=== PATIENT | female | born 1965 | race Caucasian/White ===

== ENCOUNTER 2017-04-05 09:49 | Inpatient (IN) ==
[2017-04-05] MEDS ORDERED: 0.9 % SODIUM CHLORIDE 1,000 ML IV ONE (10:24)
[2017-04-05 11:04] LABS: Basophils # (Auto) 0 K/mcL (0.0-0.3); Basophils % (Auto) 0.3 % (0.0-2.0); Eosinophils # (Auto) 0 K/mcL (0.0-0.7); Eosinophils % (Auto) 0 % (0.0-7.0); Granulocytes % (Auto) 82.2 % (38.0-78.0); Lymphocytes # (Auto) 1.2 K/mcL (1.5-4.8); Lymphocytes % (Auto) 11.2 % (15.5-49.0); Mean Cell Volume 84.5 fL (80.0-100.0); Mean Corpuscular HGB Conc 33.7 g/dL (31.0-36.0); Mean Corpuscular Hemoglobin 28.5 pg (26.0-34.0); Monocytes # (Auto) 0.7 K/mcL (0.1-0.9); Monocytes % (Auto) 6.3 % (1.0-12.0); Platelet Count 272 K/mcL (140-440); RBC 6.09 M/mcL (4.00-5.20); Red Cell Distribution Width 15.4 % (11.5-14.5)
[2017-04-05 11:49] LABS: Appearance,Urine HAZY; Bacteria,Urine FEW /hpf (0); Bilirubin,Urine NEG (NEG); Color,Urine AMBER; Glucose,Urine (UA) NEGATIVE (NEG); Leukocyte Esterase,Urine NEG /uL (NEG); Mucus,Urine MOD /hpf (0); Protein,Urine 100 mg/dL (NEG); Specific Gravity,Urine 1.025 (1.000-1.035); Urine Blood NEG mg/dL (<0.03); Urine Hyaline Cast 116 /lpf (0-2); Urine RBC 2 /hpf (0-1); Urine Squamous Epithelial Cell 6 /hpf (0-4); Urine WBC 10 /hpf (0-4)
[2017-04-05 11:56] LABS: Amphetamine Screen,Urine NONE DETECTED (NONDETECTED); Benzodiazepines Screen,Urine NONE DETECTED (NONDETECTED); Cocaine Screen,Urine NONE DETECTED (NONDETECTED); Opiate Screen,Urine NONE DETECTED (NONDETECTED); Oxycodone, Urine Screen NONE DETECTED (NONDETECTED)
[2017-04-05 12:16] LABS: Creatine Kinase MB 2.6 ng/ml (0-2.9); Myoglobin 76 ng/ml (25-58)
[2017-04-05 12:21] LABS: Acetaminophen < 5.0 ug/mL; Salicylate 0.3 mg/dL
[2017-04-05 12:32] LABS: ALT/SGPT 37 U/l (0-40); Albumin 3.7 gm/dL (3.2-5.2); Albumin/Globulin Ratio 1.2 (1.0-2.3); Alkaline Phosphatase 123 U/L (39-117); Blood Urea Nitrogen 27 mg/dl (6-20)
[2017-04-05] MEDS ORDERED: POTASSIUM CHLORIDE 20 MEQ in DEXTROSE 5% IN WATER 250 ML IV ONE (12:33)
--- NOTE | 2017-04-05 12:39 | XRay Report ---
CLINICAL INFORMATION: Weakness COMPARISON: None. FINDINGS: The heart size, mediastinum and pulmonary vessels are unremarkable. The lungs are clear. There are no effusions. The bones and soft tissues are within normal limits. IMPRESSION: Normal chest. Interpreted and Authenticated by: Robin Boyle 04/05/17
[2017-04-05] MEDS ORDERED: POTASSIUM CHLORIDE 20 MEQ, MAGNESIUM SULFATE 16.24 MEQ, THIAMINE 100 MG, MVI, ADULT NO.... IV SCH (12:45)
--- NOTE | 2017-04-05 12:58 | Cat Scan Report ---
CLINICAL INFORMATION: Multiple falls with loss of consciousness COMPARISON: None. TECHNIQUE: 2.5 mm helical slices were obtained in the skull base to vertex. Following reconstruction, axial reformatted images were reviewed at bone and parenchymal windows. The exam was performed using radiation dose optimization techniques including, but not limited to, automated exposure control, adjustment of the mA and/or kV according to patient size and use of iterative reconstruction technique. FINDINGS: The ventricles, sulci, fissures, and cisterns are normal in size and configuration. No extra-axial fluid collections are identified. The cerebrum, brainstem and cerebellum are unremarkable. There is no evidence of hemorrhage, mass effect, or edema. Bone windows show no osseous abnormality. IMPRESSION: Normal head CT without contrast. Interpreted and Authenticated by: Robin Boyle 04/05/17
--- NOTE | 2017-04-05 12:58 | Emergency Department Note ---
Weakness HPI - General Chief complaint: Weakness Stated complaint: Nausea, sinus congestion, body aches Time Seen by Provider: 04/05/17 10:10 Source: patient, family Mode of arrival: ambulatory - History of Present Illness HPI Narrative: 51-year-old female presents with multiple complaints. States she has been dizzy for the last couple of weeks but much worse over the last week. She has fallen several times. She has a bruise to her back. She wants to be seen for her dizziness but is extremely tearful and states she is depressed. Originally denies wanting to harm herself but on subsequent encounters she is crying and states that she has been trying to kill herself for quite some time. States that she has not been eating or drinking on purpose with the hopes that she would . States that she has been drinking boxes of wine, usually 2 a day, to try to speed along the process. States "I do not know why I am still here " . She does state she is willing to get help today. States "do not let me leave the hospital or something bad will happen to me and I do not want to be alive anymore ". She denies taking any medications at home or taking too much of any medication. States the last time she drank alcohol was about a day and a half ago and she wants to stop drinking alcohol. She does not have anyone to care for her at home. She does have her ex- who will check in on her. He reports that her behavior has been declining rapidly over the last 6 months. 4-1/2 months ago she decided that she was afraid of people and would not leave the house. This is the first time she has left her home in 4-1/2 months. Her states this is become so severe that she even quit smoking because she had to go outside to smoke so she just stopped because she refused to even step foot outside. He states over the last 2 months she has hardly eaten anything at all. He has been trying to at least get her to drink fluids and she will eat or drink hardly anything other than lots of alcohol he states. He does tell us that she has an extensive psych history. She has known anxiety, PTSD, depression, and he states others that he does not even know about but she has required multiple psych hospitalizations including [facility] and at [facility]. He states she really is unable to care for herself at home. She has been confused for several weeks if not months. Does not seem to care for herself or perform daily activities. He has witnessed her having several near syncopal and syncopal events recently. She refuses to come in and get treatment. Today he states he finally distended give her choice and made her come in because her symptoms were more severe. Believe she has had a fever or chills. Patient has had nausea and vomiting especially the last 2-3 weeks. He is unsure if that is from alcohol because she would drink lots and then if she would try to eat she would vomit. The patient is an extremely poor historian and has flight of ideas. At times she denies wanting to harm herself and other times she is crying stating she wants to harm herself and and does not want to be here and she has been trying to do it herself at home. The ex- is stating she desperately needs help. She does have a daughter in town but states she cannot care for herself and there is really no one to take care of her. Denies shortness of breath or difficulty breathing. No abdominal pain. No pedal edema. She denies any headache or neck pain. No numbness or tingling. MD Complaint: generalized weakness, difficulty walking (And balance is off) Onset (ago): month(s) (This is been going on for several months but much worse over the last few weeks. Very difficult to get an adequate or reliable history from this patient and much of the information is coming from her ex- who checks in on her) Associated symptoms: Reports: confusion, loss of appetite, nausea/vomiting, syncope. Denies: chest pain, dark stools, diaphoresis, dysuria, easy bruising, fever/chills, headaches, rash, shortness of breath - Related Data Home Medications Medication Instructions Recorded Confirmed No Known Home Meds [No Known Home 04/05/17 04/05/17 Meds] Allergies Allergy/AdvReac Type Severity Reaction Status Date / Time No Known Drug Allergies Allergy Unverified 04/05/17 09:59 Review of Systems All systems ED: reviewed and negative except as stated. Past Medical History - Past Medical History Medical history: Reports: other (She denies any past medical problems other than psych however she is an extremely poor historian and old records are not available.) Psychiatric history: Reports: anxiety, depression, panic disorder, PTSD, previous psychiatric hospitalization Surgical history ED: Reports: no surgical history (Patient denies but unreliable ) - Social History smoking status: Former smoker (Stop smoking 4 months ago) Alcohol use: Reports: Daily, Heavy, Recent (Last known alcohol use was 1-1/2 days ago) Drug use: Reports: marijuana Physical Exam Limitations: altered mental status (She is alert and oriented to person, place, and time. However she is an extremely poor historian and often changes her story and has flight of ideas.) General appearance: alert, other (Laughs hysterically at times and other times is sobbing and tearful) Head: atraumatic, normocephalic, normal inspection Eye: Present: normal appearance. Absent: conjunctival injection ENT: normal exam, normal oropharynx, mucous membranes moist, TM's normal bilaterally, normal external ear exam Neck: Present: normal inspection, trachea midline. Absent: tenderness, lymphadenopathy Chest: Present: normal inspection, symmetric chest wall rise, rash (Just below the breast midline is a 2.5 cm red lesion. No drainage.) Respiratory: Present: normal lung sounds bilaterally. Absent: respiratory distress, wheezes, stridor, accessory muscle use Cardiovascular: Present: regular rate, normal heart sounds Abdominal: Present: soft, normal bowel sounds. Absent: distention, tenderness, guarding, rebound, mass Extremities: Present: normal inspection, normal capillary refill, pedal edema Back: Present: normal inspection. Absent: tenderness, CVA tenderness (R), CVA tenderness (L) Neurological: Present: alert, oriented X3. Absent: CN II-XII intact, normal gait (Holds onto things to walk. Balance is off), motor sensory deficit Psychiatric: Present: depressed, anxious, suicidal ideation Skin: Present: warm, dry, intact, normal color, rash (Please see chest assessment. Patient also has a 4 cm in diameter bruise to her back. Appears to be a few days old) Course Course Narrative: oJanna, from [facility], is here to evaluate the patient. @[id number] spoke with hospitalist, Dr. Johnson, who agrees to admit the patient. We will also add on a lactic acid and ABG Vital Signs Temperature 99.7 F H 04/05/17 09:51 Pulse Rate 110 H 04/05/17 09:51 Respiratory Rate 16 04/05/17 09:51 Blood Pressure 120/71 04/05/17 09:51 Pulse Oximetry (%) 95 04/05/17 09:51 Temperature 99.7 F H 04/05/17 09:51 Pulse Rate 82 04/05/17 12:38 Respiratory Rate 9 L 04/05/17 12:38 Blood Pressure 129/86 04/05/17 12:31 Pulse Oximetry (%) 85 L 04/05/17 12:38 Weakness - Lab Data Lab results reviewed: Yes I reviewed the patient's lab results. Result diagrams: 04/05/17 10:34 04/05/17 11:25 Lab Results 04/05/17 04/05/17 04/05/17 Range/Units 10:34 10:34 10:34 WBC 10.7 (4.5-11.0) K/mcL RBC 6.09 H (4.00-5.20) M/mcL Hgb 17.4 H (12.0-15.0) g/dL Hct 51.5 H (36.0-48.0) % MCV 84.5 (80.0-100.0) fL MCH 28.5 (26.0-34.0) pg MCHC 33.7 (31.0-36.0) g/dL RDW 15.4 H (11.5-14.5) % Plt Count 272 (140-440) K/mcL MPV 8.4 (7.4-10.4) fL Gran % 82.2 H (38.0-78.0) % Lymph % (Auto) 11.2 L (15.5-49.0) % [place] % (Auto) 6.3 (1.0-12.0) % Eos % (Auto) 0 (0.0-7.0) % Baso % (Auto) 0.3 (0.0-2.0) % Gran # 8.8 H (1.8-8.0) K/mcL Lymph # (Auto) 1.2 L (1.5-4.8) K/mcL [place] # (Auto) 0.7 (0.1-0.9) K/mcL Eos # (Auto) 0 (0.0-0.7) K/mcL Baso # (Auto) 0 (0.0-0.3) K/mcL Sodium TNP Potassium TNP Chloride TNP Carbon Dioxide TNP Anion Gap Not Reportable BUN TNP Creatinine TNP GFR Calculation Not Reportable Glucose TNP Calcium TNP Magnesium (1.6-2.5) mg/dL Total Bilirubin TNP AST TNP ALT TNP Alkaline Phosphatase TNP CK-MB (CK-2) TNP Myoglobin TNP Troponin T TNP Total Protein TNP Albumin TNP Globulin TNP Albumin/Globulin Ratio TNP Urine Color Urine Appearance Urine pH (5.0-9.0) Ur Specific [place] (1.000-1.035) Urine Protein (NEG) mg/dL Urine Glucose (UA) (NEG) mg/dL Urine Ketones (NEG) mg/dL Urine Occult Blood (<0.03) mg/dL Urine Nitrate (NEG) Urine Bilirubin (NEG) mg/dL Urine Urobilinogen (NEG) mg/dL Ur Leukocyte Esterase (NEG) /uL Urine RBC (0-1) /hpf Urine WBC (0-4) /hpf Ur Squamous Epith Cells (0-4) /hpf Urine Bacteria (0) /hpf Hyaline Casts (0-2) /lpf Urine Mucus (0) /hpf Ur Culture Indicated? Salicylates Urine Opiates Screen (NONDETECTED) Ur Oxycodone Screen (NONDETECTED) Urine Methadone Screen (NONDETECTED) Acetaminophen Ur Barbiturates Screen (NONDETECTED) Ur Phencyclidine Scrn (NONDETECTED) Ur Amphetamines Screen (NONDETECTED) U Benzodiazepines Scrn (NONDETECTED) Urine Cocaine Screen (NONDETECTED) U Marijuana (THC) Screen (NONDETECTED) Ethyl Alcohol 04/05/17 04/05/17 04/05/17 Range/Units 10:34 10:34 11:11 WBC (4.5-11.0) K/mcL RBC (4.00-5.20) M/mcL Hgb (12.0-15.0) g/dL Hct (36.0-48.0) % MCV (80.0-100.0) fL MCH (26.0-34.0) pg MCHC (31.0-36.0) g/dL RDW (11.5-14.5) % Plt Count (140-440) K/mcL MPV (7.4-10.4) fL Gran % (38.0-78.0) % Lymph % (Auto) (15.5-49.0) % [place] % (Auto) (1.0-12.0) % Eos % (Auto) (0.0-7.0) % Baso % (Auto) (0.0-2.0) % Gran # (1.8-8.0) K/mcL Lymph # (Auto) (1.5-4.8) K/mcL [place] # (Auto) (0.1-0.9) K/mcL Eos # (Auto) (0.0-0.7) K/mcL Baso # (Auto) (0.0-0.3) K/mcL Sodium Potassium Chloride Carbon Dioxide Anion Gap BUN Creatinine GFR Calculation Glucose Calcium Magnesium (1.6-2.5) mg/dL Total Bilirubin AST ALT Alkaline Phosphatase CK-MB (CK-2) Myoglobin Troponin T Total Protein Albumin Globulin Albumin/Globulin Ratio Urine Color Urine Appearance Urine pH (5.0-9.0) Ur Specific [place] (1.000-1.035) Urine Protein (NEG) mg/dL Urine Glucose (UA) (NEG) mg/dL Urine Ketones (NEG) mg/dL Urine Occult Blood (<0.03) mg/dL Urine Nitrate (NEG) Urine Bilirubin (NEG) mg/dL Urine Urobilinogen (NEG) mg/dL Ur Leukocyte Esterase (NEG) /uL Urine RBC (0-1) /hpf Urine WBC (0-4) /hpf Ur Squamous Epith Cells (0-4) /hpf Urine Bacteria (0) /hpf Hyaline Casts (0-2) /lpf Urine Mucus (0) /hpf Ur Culture Indicated? Salicylates TNP Urine Opiates Screen None detected (NONDETECTED) Ur Oxycodone Screen None detected (NONDETECTED) Urine Methadone Screen None detected (NONDETECTED) Acetaminophen TNP Ur Barbiturates Screen None detected (NONDETECTED) Ur Phencyclidine Scrn None detected (NONDETECTED) Ur Amphetamines Screen None detected (NONDETECTED) U Benzodiazepines Scrn None detected (NONDETECTED) Urine Cocaine Screen None detected (NONDETECTED) U Marijuana (THC) Screen Suspect positive A (NONDETECTED) Ethyl Alcohol TNP 04/05/17 04/05/17 04/05/17 Range/Units 11:11 11:25 11:25 WBC (4.5-11.0) K/mcL RBC (4.00-5.20) M/mcL Hgb (12.0-15.0) g/dL Hct (36.0-48.0) % MCV (80.0-100.0) fL MCH (26.0-34.0) pg MCHC (31.0-36.0) g/dL RDW (11.5-14.5) % Plt Count (140-440) K/mcL MPV (7.4-10.4) fL Gran % (38.0-78.0) % Lymph % (Auto) (15.5-49.0) % [place] % (Auto) (1.0-12.0) % Eos % (Auto) (0.0-7.0) % Baso % (Auto) (0.0-2.0) % Gran # (1.8-8.0) K/mcL Lymph # (Auto) (1.5-4.8) K/mcL [place] # (Auto) (0.1-0.9) K/mcL Eos # (Auto) (0.0-0.7) K/mcL Baso # (Auto) (0.0-0.3) K/mcL Sodium 127 L Potassium 1.8 L* Chloride 71 L Carbon Dioxide 37 H Anion Gap 19.0 H BUN 27 H Creatinine 1.0 GFR Calculation 65 Glucose 131 H Calcium 9.2 Magnesium (1.6-2.5) mg/dL Total Bilirubin 1.1 H AST 58 H ALT 37 Alkaline Phosphatase 123 H CK-MB (CK-2) 2.6 Myoglobin 76 H Troponin T < 0.01 Total Protein 6.7 Albumin 3.7 Globulin 3.0 Albumin/Globulin Ratio 1.2 Urine Color Jaylin Urine Appearance Hazy Urine pH 5.0 (5.0-9.0) Ur Specific [place] 1.025 (1.000-1.035) Urine Protein 100 A (NEG) mg/dL Urine Glucose (UA) Negative (NEG) mg/dL Urine Ketones 80 A (NEG) mg/dL Urine Occult Blood Neg (<0.03) mg/dL Urine Nitrate Neg (NEG) Urine Bilirubin Neg (NEG) mg/dL Urine Urobilinogen 4.0 A (NEG) mg/dL Ur Leukocyte Esterase Neg (NEG) /uL Urine RBC 2 H (0-1) /hpf Urine WBC 10 H (0-4) /hpf Ur Squamous Epith Cells 6 H (0-4) /hpf Urine Bacteria Few A (0) /hpf Hyaline Casts 116 H (0-2) /lpf Urine Mucus Mod (0) /hpf Ur Culture Indicated? No Salicylates Urine Opiates Screen (NONDETECTED) Ur Oxycodone Screen (NONDETECTED) Urine Methadone Screen (NONDETECTED) Acetaminophen Ur Barbiturates Screen (NONDETECTED) Ur Phencyclidine Scrn (NONDETECTED) Ur Amphetamines Screen (NONDETECTED) U Benzodiazepines Scrn (NONDETECTED) Urine Cocaine Screen (NONDETECTED) U Marijuana (THC) Screen (NONDETECTED) Ethyl Alcohol 04/05/17 04/05/17 04/05/17 Range/Units 11:25 11:25 11:25 WBC (4.5-11.0) K/mcL RBC (4.00-5.20) M/mcL Hgb (12.0-15.0) g/dL Hct (36.0-48.0) % MCV (80.0-100.0) fL MCH (26.0-34.0) pg MCHC (31.0-36.0) g/dL RDW (11.5-14.5) % Plt Count (140-440) K/mcL MPV (7.4-10.4) fL Gran % (38.0-78.0) % Lymph % (Auto) (15.5-49.0) % [place] % (Auto) (1.0-12.0) % Eos % (Auto) (0.0-7.0) % Baso % (Auto) (0.0-2.0) % Gran # (1.8-8.0) K/mcL Lymph # (Auto) (1.5-4.8) K/mcL [place] # (Auto) (0.1-0.9) K/mcL Eos # (Auto) (0.0-0.7) K/mcL Baso # (Auto) (0.0-0.3) K/mcL Sodium Potassium Chloride Carbon Dioxide Anion Gap BUN Creatinine GFR Calculation Glucose Calcium Magnesium 1.6 (1.6-2.5) mg/dL Total Bilirubin AST ALT Alkaline Phosphatase CK-MB (CK-2) Myoglobin Troponin T Total Protein Albumin Globulin Albumin/Globulin Ratio Urine Color Urine Appearance Urine pH (5.0-9.0) Ur Specific [place] (1.000-1.035) Urine Protein (NEG) mg/dL Urine Glucose (UA) (NEG) mg/dL Urine Ketones (NEG) mg/dL Urine Occult Blood (<0.03) mg/dL Urine Nitrate (NEG) Urine Bilirubin (NEG) mg/dL Urine Urobilinogen (NEG) mg/dL Ur Leukocyte Esterase (NEG) /uL Urine RBC (0-1) /hpf Urine WBC (0-4) /hpf Ur Squamous Epith Cells (0-4) /hpf Urine Bacteria (0) /hpf Hyaline Casts (0-2) /lpf Urine Mucus (0) /hpf Ur Culture Indicated? Salicylates 0.3 Urine Opiates Screen (NONDETECTED) Ur Oxycodone Screen (NONDETECTED) Urine Methadone Screen (NONDETECTED) Acetaminophen < 5.0 Ur Barbiturates Screen (NONDETECTED) Ur Phencyclidine Scrn (NONDETECTED) Ur Amphetamines Screen (NONDETECTED) U Benzodiazepines Scrn (NONDETECTED) Urine Cocaine Screen (NONDETECTED) U Marijuana (THC) Screen (NONDETECTED) Ethyl Alcohol < 0.010 - Radiology Data Radiology results reviewed: Yes I reviewed the patient's radiology results. - EKG Data EKG attestation: Yes I reviewed and interpreted this EKG. EKG shows normal: sinus rhythm When compared to previous EKG there are: previous EKG unavailable Interpretation: nonspecific ST-T wave changes (Consistent with hypokalemia) Disposition Pt seen by [facility] only: No Clinical Impression: Confusion, Depression, Alcohol abuse, Hypokalemia, Dehydration, Failure to thrive in adult Condition: Serious Time of Disposition: 13:10
[2017-04-05] MEDS ORDERED: LORazepam 2 MG/ML VIAL IV PRN (15:03)
[2017-04-05] MEDS ORDERED: MAGNESIUM SULFATE 2 GM/50 ML BAG IV ONE (15:03)
[2017-04-05] MEDS ORDERED: cloNIDine HCL 0.1 MG TABLET PO PRN (15:03)
[2017-04-05] MEDS ORDERED: ONDANSETRON 4 MG/2 ML VIAL IV PRN (15:03)
[2017-04-05] MEDS ORDERED: NALOXONE HCL 0.4 MG/ML VIAL IV PRN (15:03)
--- NOTE | 2017-04-05 15:08 | Internal Med History&Physical ---
Medical - H&P: HPI Patient information: Note initiated : 04/05/17 at 3:01 pm Service Date, if different from initiated Date: [] Patient: Oksana Salcedo 51 y/o F admitted on 04/05/17 for Nausea, sinus congestion, body aches. Chief Complaint: [] History of present illness: Ms. Salcedo is a 51 year old Female with h/o mental health disorder, paranoid behavoru, alcohol abuse, who presents to the ER for evaluation of dizziness , nause and vomiting. The patient is a very poor historian and changes her story multiple times, she notes that she came to the ER for evaluation of dizziness and nausea which has been botherhing her for many years, but today felt that like she has had it and therefore came to the ER. THe patient admits to poor oral intake, and vmoting every time she tries to eat something, but besides that denies any other complaints Intermittently nicely talking, and intermitently crying. History reviewed from ER note is a completely different story, on talking with health care provider in ER, the patient has been admitted in inpt psych facility , and we are in the process of obtaining records. For the time being the patient juan any SI, but as per the ER note the patient is thinks she is not going to live if she is discharged, and is drinking her self to I am not able to quantify the amount of alcohol consumed, or who is bringing the alcohol to the patient, its noted she drinks 2 boxes a day. The patient lives by self, and her ex checks on her intermittently, but she thinks she lives with him. In the ER the patient was noted to be dehydrated, she has hemoconcentration in labs with hb 17, hct 51, Na 127, Cl 71, K 1.8, bicarb 31 creat 1.0, Her ABG is Ph 7.65/42/73, Her EKG shows sinus rhythm lafb, u waves merged with t waves. Her Tylenol level, salicylate level and ethanol were neg. The patient is being admitted to the PCU for critical hypokalemia, severe metabolic alkalosis, and high risk for alcohol withdrawal. CT head and Chest X ray is neg. All systems: reviewed and no additional remarkable complaints except as stated ( as per hPI, but not sure how reliable this is.) Medical - H&P: PMH Medical history: PTSD anxiety Depression paranoia/ schizophrenia?? Surgical history: C section. Family history: reviewed and not pertinent Pertinent family history: adopted Social history: lives by self with ex ? heavy etohy drinker THC user denies any other substance use Medical - H&P: Meds Home Medications Medication Instructions Recorded Confirmed Type No Known Home Meds [No Known Home 04/05/17 04/05/17 History Meds] Allergies Allergy/AdvReac Type Severity Reaction Status Date / Time No Known Drug Allergies Allergy Unverified 04/05/17 09:59 Medical - H&P: Exam - Constitutional Vitals: Temp Pulse Resp BP Pulse Ox 99.7 F H 80 10 L 111/76 100 04/05/17 09:51 04/05/17 14:01 04/05/17 14:01 04/05/17 14:01 04/05/17 14:01 Exam: GENERAL: The patient is a well-developed, well-nourished in no apparent distress. Is alert and oriented x3. VITAL SIGNS: Reviewed and as noted elsewhere. HEENT: Head is normocephalic and atraumatic. Extraocular muscles are intact. Pupils are equal, round, and reactive to light. Nares appeared normal. Mouth appears any without lesions. Mucous membranes are moist. no teeth present. NECK: Normal to inspection, Supple, No lymphadenopathy or thyromegaly. LUNGS: Air entry equal on both sides, no wheezing, crackles or rhonchi noted. No accessory muscles of respiration HEART: Regular rate and rhythm normal, S1 and S2 heard, no Gallop, S3 or Rub Noted, No Gross murmur heard. ABDOMEN: Soft, nontender, and nondistended. Positive bowel sounds. No hepatosplenomegaly was noted. EXTREMITIES: No cyanosis, clubbing, rash, lesions or edema. NEUROLOGIC: Cranial nerves II through XII are grossly intact. Motor and Sensory System Grossly Intact PSYCHIATRIC: labile affect, poor eye contact, intermittent crying. SKIN: No ulceration or wounds noted, No jaundice, No rash noted. Medical - H&P: Reslt - Labs CBC & Chem 7: 04/05/17 10:34 04/05/17 11:25 Labs: Short CBC 04/05/17 Range/Units 10:34 WBC 10.7 (4.5-11.0) K/mcL Hgb 17.4 H (12.0-15.0) g/dL Hct 51.5 H (36.0-48.0) % Plt Count 272 (140-440) K/mcL BMP 04/05/17 04/05/17 10:34 11:25 Sodium TNP 127 L Potassium TNP 1.8 L* Chloride TNP 71 L Carbon Dioxide TNP 37 H BUN TNP 27 H Creatinine TNP 1.0 Glucose TNP 131 H Calcium TNP 9.2 Cardiac Enzymes 04/05/17 04/05/17 04/05/17 Range/Units 10:34 10:34 11:25 CK-MB (CK-2) TNP 2.6 Troponin T TNP 04/05/17 Range/Units 11:25 CK-MB (CK-2) Troponin T < 0.01 Liver Function 04/05/17 04/05/17 Range/Units 10:34 11:25 Total Bilirubin TNP 1.1 H AST TNP 58 H ALT TNP 37 Alkaline Phosphatase TNP 123 H Albumin TNP 3.7 Urine 04/05/17 Range/Units 11:11 Urine Color Jaylin Urine Appearance Hazy Urine pH 5.0 (5.0-9.0) Ur Specific [place] 1.025 (1.000-1.035) Urine Protein 100 A (NEG) mg/dL Urine Glucose (UA) Negative (NEG) mg/dL Medical - H&P: A/P - Narrative A/P Narrative: A/P Critical Hypokalemia: Treat iwth IV KCL, replace mg even though its 1.6, as expect to be lower, monitor on tele, repeat labs again today, check phos and tsh Hyponatremia: due to dehydration. Severe Metalbolic Alkalosis: Ph 7.65, due to dehydration, IV fluids for now. Etoh abuse/ : CIWA protocol, IV thiamine, nausea/ vomiting: due to gastritis, IV PPI for now, abdomen exam is benign, consider GI imaging if needed Severe dehydration: due to etoh use, poor oral intake, IV fluids. paranoid behavoir: Seen by [facility], plan for inpatient admit if remains unstable or no safe plan for discharge possible. dvt hep sq regular diet full code. will need to get more infor from family
[2017-04-05] MEDS: 0.9 % SODIUM CHLORIDE 1,000 ML IV SCH ×2 (15:47→22:51)
[2017-04-05] MEDS: THIAMINE 100 MG in 0.9 % SODIUM CHLORIDE 50 ML IV SCH ×2 (15:47→17:37)
[2017-04-05] MEDS ORDERED: POTASSIUM CHLORIDE 80 MEQ in DEXTROSE 5% IN WATER 1,000 ML IV ONE (16:00)
[2017-04-05] MEDS: PANTOPRAZOLE 40 MG VIAL IV SCH (17:39)
[2017-04-05 18:16] LABS: Blood Urea Nitrogen 24 mg/dl (6-20)
[2017-04-05] MEDS ORDERED: POTASSIUM CHLORIDE 20 MEQ PACKET PO ONE ×2 (19:22→23:00)
[2017-04-05] MEDS: QUEtiapine 100 MG TABLET PO SCH (20:28)
[2017-04-05] MEDS: HEPARIN 5,000 UNIT/ML VIAL SQ SCH (20:28)
[2017-04-05] MEDS: ACETAMINOPHEN 325 MG TABLET PO PRN (20:29)
[2017-04-05] MEDS: NEUTRA PHOS 1 PACKET PO SCH (20:30)
[2017-04-05] MEDS: 0.9 % SODIUM CHLORIDE 10 ML SYRINGE IV SCH (22:22)
[2017-04-05] MEDS ORDERED: POTASSIUM CHLORIDE 20 MEQ PACKET ONE (23:22)
[2017-04-05 23:37] LABS: Blood Urea Nitrogen 22 mg/dl (6-20)
--- NOTE | 2017-04-06 03:50 | Emergency Department Note ---
ED Note Addendum Note Addendum: I saw this patient with Irena PORRAS. I agree with her evaluation management and documentation. I reviewed the EKG as well and noted a rate of 93 left anterior fascicular block and nonspecific ST changes. She will be admitted for hypokalemia
[2017-04-06] MEDS: 0.9 % SODIUM CHLORIDE 1,000 ML IV SCH ×3 (05:58→22:36)
[2017-04-06 05:59] LABS: Basophils # (Auto) 0 K/mcL (0.0-0.3); Basophils % (Auto) 0.4 % (0.0-2.0); Eosinophils # (Auto) 0.1 K/mcL (0.0-0.7); Eosinophils % (Auto) 1.1 % (0.0-7.0); Granulocytes % (Auto) 37.4 % (38.0-78.0); Lymphocytes # (Auto) 2.7 K/mcL (1.5-4.8); Lymphocytes % (Auto) 54.5 % (15.5-49.0); Mean Cell Volume 85.8 fL (80.0-100.0); Mean Corpuscular HGB Conc 34.2 g/dL (31.0-36.0); Mean Corpuscular Hemoglobin 29.3 pg (26.0-34.0); Monocytes # (Auto) 0.3 K/mcL (0.1-0.9); Monocytes % (Auto) 6.6 % (1.0-12.0); Platelet Count 187 K/mcL (140-440); RBC 4.33 M/mcL (4.00-5.20); Red Cell Distribution Width 15.6 % (11.5-14.5)
[2017-04-06] MEDS: 0.9 % SODIUM CHLORIDE 10 ML SYRINGE IV SCH ×3 (05:59→22:58)
[2017-04-06 06:06] LABS: ALT/SGPT 24 U/l (0-40); Albumin 2.8 gm/dL (3.2-5.2); Albumin/Globulin Ratio 1.3 (1.0-2.3); Alkaline Phosphatase 87 U/L (39-117); Bilirubin,Direct 0.3 mg/dL (0.0-0.3); Blood Urea Nitrogen 19 mg/dl (6-20); Gamma Glutamyl Transpeptidase 88 U/L (5-36)
[2017-04-06] MEDS: PANTOPRAZOLE 40 MG VIAL IV SCH ×2 (07:34→17:14)
[2017-04-06] MEDS ORDERED: POTASSIUM CHLORIDE 40 MEQ in 0.9 % SODIUM CHLORIDE 500 ML IV ONE (08:01)
[2017-04-06] MEDS ORDERED: POTASSIUM CHLORIDE 20 MEQ PACKET PO ONE ×2 (08:01→14:12)
[2017-04-06] MEDS: MULTIVIT,THER IRON,CA,FA & MIN 1 TABLET PO SCH (08:49)
[2017-04-06] MEDS: NEUTRA PHOS 1 PACKET PO SCH ×2 (08:49→20:23)
[2017-04-06] MEDS: HEPARIN 5,000 UNIT/ML VIAL SQ SCH ×2 (08:49→20:24)
[2017-04-06] MEDS: FOLIC ACID 1 MG TABLET PO SCH (08:49)
[2017-04-06] MEDS: THIAMINE 100 MG in 0.9 % SODIUM CHLORIDE 50 ML IV SCH (08:50)
[2017-04-06] MEDS ORDERED: PNEUMOCOCCAL 23-VAL P-SAC VAC 0.5 ML VIAL IM ONE (10:00)
[2017-04-06] MEDS ORDERED: FLU VACC QS2017-18 36MOS UP/PF 60 MCG/0.5 ML SYRINGE IM ONE (10:15)
--- NOTE | 2017-04-06 14:13 | Internal Med Progress Note ---
Medical - PN: Subj Patient information: Note initiated : 04/06/17 at 2:11 pm Service Date, if different from initiated Date: [] Patient: Oksana Salcedo 51 y/o F admitted on 04/05/17 for Critical Hypokalemia, Severe Metalbolic Alkalosis. Chief Complaint: [] Interval history: Ms. Salcedo is a 51 year old Female with h/o mental health disorder, paranoid behavoru, alcohol abuse, who presents to the ER for evaluation of dizziness , nause and vomiting. The patient is a very poor historian and changes her story multiple times, she notes that she came to the ER for evaluation of dizziness and nausea which has been botherhing her for many years, but today felt that like she has had it and therefore came to the ER. THe patient admits to poor oral intake, and vmoting every time she tries to eat something, but besides that denies any other complaints Intermittently nicely talking, and intermitently crying. History reviewed from ER note is a completely different story, on talking with health care provider in ER, the patient has been admitted in inpt psych facility , and we are in the process of obtaining records. For the time being the patient juan any SI, but as per the ER note the patient is thinks she is not going to live if she is discharged, and is drinking her self to I am not able to quantify the amount of alcohol consumed, or who is bringing the alcohol to the patient, its noted she drinks 2 boxes a day. The patient lives by self, and her ex checks on her intermittently, but she thinks she lives with him. In the ER the patient was noted to be dehydrated, she has hemoconcentration in labs with hb 17, hct 51, Na 127, Cl 71, K 1.8, bicarb 31 creat 1.0, Her ABG is Ph 7.65/42/73, Her EKG shows sinus rhythm lafb, u waves merged with t waves. Her Tylenol level, salicylate level and ethanol were neg. The patient is being admitted to the PCU for critical hypokalemia, severe metabolic alkalosis, and high risk for alcohol withdrawal. CT head and Chest X ray is neg. apr 06 patient seen examined, doing well, eating breakfast this AM, still has some dizziness, but feels much better. No other complaints K is much better now, at 3.1, on oral and IV replacement. No events on tele Pertinent ROS: Denies headache, Present dizziness Denies chest pain, palpitations Denies cough or shortness of breath Denies abdominal pain, nausea or vomiting. - Constitutional Vitals: Vital Signs Temp Pulse Resp BP Pulse Ox 98.6 F 79 22 95/65 100 04/06/17 12:46 04/06/17 12:46 04/06/17 12:46 04/06/17 12:46 04/06/17 12:46 Period Temp Pulse Resp BP Sys/Gonzalez Pulse Ox Last 24 Hr 98.5 F-99.3 F 67-95 8-22 94-140/51-126 95-100 Intake and Output 04/06/17 04/06/17 04/06/17 05:59 13:59 21:59 Intake Total 2480 / 2480 642 / 642 Output Total 350 / 350 250 / 250 Balance 2130 / 2130 392 / 392 Weight 163 lb 1.6 oz Patient Weight 04/07/17 05:59 Weight 163 lb 1.6 oz Intake & Output: Intake & Output 04/06/17 04/06/17 04/06/17 05:59 13:59 21:59 Intake Total 2480 / 2480 642 / 642 Output Total 350 / 350 250 / 250 Balance 2130 / 2130 392 / 392 Weight 163 lb 1.6 oz Intake: IV 1999 102 / 102 Sodium Chloride 0.9% 1,000 ml @ 1999 150 mls/hr IV .Q6H40M [facility] Rx#: [id number] Vitamin B1 100 mg In Sodium 102 / 102 Chloride 0.9% 50 ml @ 50 mls/hr IV DAILY [facility] Rx#:[id number] Oral 480 / 480 540 / 540 Output: Void Amount 350 / 350 0 / 0 Urine/Stool Mix 250 / 250 Other: Meal Breakfast Percent of Meal Consumed 75% Exam: Constitutional; Afebrile, cooperative, alert, not in distress. Eyes- No icterus, , No periorbital swelling Ears- Ext ear normal, hearing normal to conversation. Neck- Midline trachea, supple Respiratory system: Air Entry equal on both sides, No crackles or wheezing, no rhonchi. CVS- Rate rhythm regular, S1,S2 heard, no gallop, no rub. Abdomen- Soft nontender abdomen, no organomegaly, no tenderness, no guarding or rigidity, PRESS HELPER- AOOx3, moving all extremities, no gross focal deficit noted. Medical - PN: Obj Da - Labs CBC & Chem 7: 04/06/17 04:00 04/06/17 04:00 Labs: Abnormal Lab Results 04/06/17 04/06/17 04/05/17 04:00 04:00 22:40 RBC Hgb Hct RDW 15.6 H Gran % 37.4 L Lymph % (Auto) 54.5 H Gran # Lymph # (Auto) Sodium 132 L 127 L Potassium 3.1 L 2.9 L* Chloride 88 L 85 L Carbon Dioxide 31 H 33 H Anion Gap BUN 22 H Glucose 126 H Calcium 7.9 L 7.7 L Phosphorus 1.7 L Total Bilirubin 1.1 H GGT 88 H AST 39 H Alkaline Phosphatase Myoglobin Total Protein 5.0 L Albumin 2.8 L Urine Protein Urine Ketones Urine Urobilinogen Urine RBC Urine WBC Ur Squamous Epith Cells Urine Bacteria Hyaline Casts U Marijuana (THC) Screen 04/05/17 04/05/17 04/05/17 17:20 11:25 11:25 RBC Hgb Hct RDW Gran % Lymph % (Auto) Gran # Lymph # (Auto) Sodium 129 L 127 L Potassium 2.1 L* 1.8 L* Chloride 80 L 71 L Carbon Dioxide 34 H 37 H Anion Gap 19.0 H BUN 24 H 27 H Glucose 116 H 131 H Calcium 8.4 L Phosphorus 2.5 L Total Bilirubin 1.1 H GGT AST 58 H Alkaline Phosphatase 123 H Myoglobin 76 H Total Protein Albumin Urine Protein Urine Ketones Urine Urobilinogen Urine RBC Urine WBC Ur Squamous Epith Cells Urine Bacteria Hyaline Casts U Marijuana (THC) Screen 04/05/17 04/05/17 04/05/17 11:11 11:11 10:34 RBC 6.09 H Hgb 17.4 H Hct 51.5 H RDW 15.4 H Gran % 82.2 H Lymph % (Auto) 11.2 L Gran # 8.8 H Lymph # (Auto) 1.2 L Sodium Potassium Chloride Carbon Dioxide Anion Gap BUN Glucose Calcium Phosphorus Total Bilirubin GGT AST Alkaline Phosphatase Myoglobin Total Protein Albumin Urine Protein 100 A Urine Ketones 80 A Urine Urobilinogen 4.0 A Urine RBC 2 H Urine WBC 10 H Ur Squamous Epith Cells 6 H Urine Bacteria Few A Hyaline Casts 116 H U Marijuana (THC) Screen Suspect positive A Meds: Medications Acetaminophen (Tylenol) 650 mg PO Q4-6HP PRN PRN Reason: PAIN/FEVER > 101 Last Admin: 04/05/17 20:29 Dose: 650 mg Clonidine HCl (Catapres) 0.1 mg PO Q4HP PRN PRN Reason: Alcohol Withdrawal Folic Acid (Folic Acid) 1 mg PO DAILY [facility] Last Admin: 04/06/17 08:49 Dose: 1 mg Heparin Sodium (Porcine) (Heparin) 5,000 unit SQ Q12 [facility] Last Admin: 04/06/17 08:49 Dose: 5,000 unit Sodium Chloride (Sodium Chloride 0.9%) 1,000 mls @ 150 mls/hr IV .Q6H40M [facility] Last Admin: 04/06/17 05:58 Dose: 150 mls/hr Thiamine HCl 100 mg/ Sodium (Chloride) 51 mls @ 50 mls/hr IV DAILY [facility] Last Infusion: 04/06/17 11:16 Dose: Infused Iron Carb/Multivit/[place]/Folic Acid (Multivitamin W/Minerals) 1 tab PO DAILY [facility] Last Admin: 04/06/17 08:49 Dose: 1 tab Lorazepam (Ativan) 0 mg IV Q4HP PRN; Protocol PRN Reason: Alcohol Withdrawal Naloxone HCl (Narcan) 0.1 mg IV Q2MIN PRN PRN Reason: Opiate Reversal Ondansetron HCl (Zofran) 4 mg IV Q4-6HP PRN PRN Reason: Nausea And Vomiting Pantoprazole Sodium (Protonix) 40 mg IV BIDAC [facility] Last Admin: 04/06/17 07:34 Dose: 40 mg Potassium/Phosphorus/Sodium (Neutra Phos) 2 packet PO BID [facility] Last Admin: 04/06/17 08:49 Dose: 2 packet Quetiapine Fumarate (Seroquel) 300 mg PO HS [facility] Last Admin: 04/05/17 20:28 Dose: 300 mg Sodium Chloride (Saline Flush) 10 ml IV Q8 [facility] Last Admin: 04/06/17 05:59 Dose: 10 ml Medical - PN: A/P - Time Spent With Patient Total time spent is greater than 50% in coordination of care (as documented) at patient's floor/unit and/or counseling patient: - Narrative A/P Narrative: A/P Critical Hypokalemia: K at 3.1, continue replacement aggressively, check in PM, likely from poor oral intake. Hyponatremia: due to dehydration. resolving with IVF Severe Metabolic Alkalosis: Ph 7.65, due to dehydration, IV fluids for now. bicarb level is trending down, continue fluid resuscitation. Etoh abuse/ : CIWA protocol, thiamine,folic acid and multivitamin. nausea/ vomiting: resolved, pt tolertaing po diet well Severe dehydration: due to etoh use, improving. paranoid behavior: Seen by [facility], plan for inpatient admit if remains unstable or no safe plan for discharge possible. on seroquel 300mg qhs as her home dose, [facility] recommended we resume same. dvt hep sq regular diet full code. anticipate d/c tomorrow if remains stable, likely to Mental health facility. Medical - PN: Qual - VTE Deep Vein Thrombosis/Pulmonary Embolism Present on Admission: No
[2017-04-06 18:44] LABS: Blood Urea Nitrogen 18 mg/dl (6-20)
[2017-04-06] MEDS: QUEtiapine 100 MG TABLET PO SCH (20:23)
[2017-04-06] MEDS: ACETAMINOPHEN 325 MG TABLET PO PRN (20:24)
[2017-04-07] MEDS: ACETAMINOPHEN 325 MG TABLET PO PRN ×3 (05:08→22:00)
[2017-04-07] MEDS: 0.9 % SODIUM CHLORIDE 1,000 ML IV SCH ×2 (05:11→07:11)
[2017-04-07] MEDS: 0.9 % SODIUM CHLORIDE 10 ML SYRINGE IV SCH ×3 (05:11→21:14)
[2017-04-07 05:46] LABS: Basophils # (Auto) 0 K/mcL (0.0-0.3); Basophils % (Auto) 0.4 % (0.0-2.0); Eosinophils # (Auto) 0.1 K/mcL (0.0-0.7); Eosinophils % (Auto) 1.9 % (0.0-7.0); Granulocytes % (Auto) 40.3 % (38.0-78.0); Lymphocytes # (Auto) 2.4 K/mcL (1.5-4.8); Lymphocytes % (Auto) 51.8 % (15.5-49.0); Mean Cell Volume 86.6 fL (80.0-100.0); Mean Corpuscular HGB Conc 33.8 g/dL (31.0-36.0); Mean Corpuscular Hemoglobin 29.2 pg (26.0-34.0); Monocytes # (Auto) 0.3 K/mcL (0.1-0.9); Monocytes % (Auto) 5.6 % (1.0-12.0); Platelet Count 186 K/mcL (140-440); RBC 3.75 M/mcL (4.00-5.20); Red Cell Distribution Width 15.9 % (11.5-14.5)
[2017-04-07 06:13] LABS: ALT/SGPT 23 U/l (0-40); Albumin 2.5 gm/dL (3.2-5.2); Albumin/Globulin Ratio 1.3 (1.0-2.3); Alkaline Phosphatase 75 U/L (39-117); Bilirubin,Direct < 0.2 mg/dL (0.0-0.3); Blood Urea Nitrogen 17 mg/dl (6-20); Gamma Glutamyl Transpeptidase 82 U/L (5-36); Uric Acid 4.1 mg/dL (2.5-8.0)
[2017-04-07] MEDS ORDERED: MAGNESIUM SULFATE 2 GM/50 ML BAG IV ONE (06:15)
[2017-04-07] MEDS ORDERED: POTASSIUM PHOSPHATE 40 MEQ in 0.9 % SODIUM CHLORIDE 500 ML IV ONE (07:30)
[2017-04-07] MEDS: PANTOPRAZOLE 40 MG VIAL IV SCH ×2 (07:57→16:40)
[2017-04-07] MEDS: HEPARIN 5,000 UNIT/ML VIAL SQ SCH ×2 (09:02→21:13)
[2017-04-07] MEDS: MULTIVIT,THER IRON,CA,FA & MIN 1 TABLET PO SCH (09:02)
[2017-04-07] MEDS: THIAMINE 100 MG in 0.9 % SODIUM CHLORIDE 50 ML IV SCH (09:02)
[2017-04-07] MEDS: FOLIC ACID 1 MG TABLET PO SCH (09:02)
[2017-04-07] MEDS: NEUTRA PHOS 1 PACKET PO SCH ×2 (09:02→21:14)
--- NOTE | 2017-04-07 13:38 | Internal Med Progress Note ---
Medical - PN: Subj Patient information: Note initiated : 04/07/17 at 1:32 pm Service Date, if different from initiated Date: [] Patient: Oksana Salcedo 51 y/o F admitted on 04/05/17 for Critical Hypokalemia, Severe Metalbolic Alkalosis. Chief Complaint: [] Interval history: Ms. Salcedo is a 51 year old Female with h/o mental health disorder, paranoid behavoru, alcohol abuse, who presents to the ER for evaluation of dizziness , nause and vomiting. The patient is a very poor historian and changes her story multiple times, she notes that she came to the ER for evaluation of dizziness and nausea which has been botherhing her for many years, but today felt that like she has had it and therefore came to the ER. THe patient admits to poor oral intake, and vmoting every time she tries to eat something, but besides that denies any other complaints Intermittently nicely talking, and intermitently crying. History reviewed from ER note is a completely different story, on talking with health care provider in ER, the patient has been admitted in inpt psych facility , and we are in the process of obtaining records. For the time being the patient juan any SI, but as per the ER note the patient is thinks she is not going to live if she is discharged, and is drinking her self to I am not able to quantify the amount of alcohol consumed, or who is bringing the alcohol to the patient, its noted she drinks 2 boxes a day. The patient lives by self, and her ex checks on her intermittently, but she thinks she lives with him. In the ER the patient was noted to be dehydrated, she has hemoconcentration in labs with hb 17, hct 51, Na 127, Cl 71, K 1.8, bicarb 31 creat 1.0, Her ABG is Ph 7.65/42/73, Her EKG shows sinus rhythm lafb, u waves merged with t waves. Her Tylenol level, salicylate level and ethanol were neg. The patient is being admitted to the PCU for critical hypokalemia, severe metabolic alkalosis, and high risk for alcohol withdrawal. CT head and Chest X ray is neg. apr 06 patient seen examined, doing well, eating breakfast this AM, still has some dizziness, but feels much better. No other complaints K is much better now, at 3.1, on oral and IV replacement. No events on tele April 07-patient doing a lot better. Improving potassium and other electrolytes with aggressive replacement. On discussion with Spike is a history consisting with bulimia with induced vomiting however at this time patient does not have any signs of nausea persistent vomiting since hospitalization. Given her previous symptoms of postprandial recurrent emesis and upper endoscopy will be mandated to rule out outlet obstruction. overall patient feels a lot better. She is upbeat. There is no evidence of suicidal ideation or mental status change. Treatment plan and discussions were undertaken the presence of ex- case management team and patient. She will be evaluated by quality behavioral health services in the next 24 hours once her electrolytes have normalized for discharge placement/planning coordination - Constitutional Vitals: Vital Signs Temp Pulse Resp BP Pulse Ox 98.7 F 78 16 114/91 100 04/07/17 12:00 04/07/17 11:00 04/07/17 13:01 04/07/17 13:01 04/07/17 12:00 Period Temp Pulse Resp BP Sys/Gonzalez Pulse Ox Last 24 Hr 98.0 F-99.6 F 73-92 15-25 81-120/57-91 92-100 Intake and Output 04/06/17 04/07/17 04/07/17 21:59 05:59 13:59 Intake Total 2300 / 2300 640 / 640 2389 / 2389 Output Total 0 / 0 1300 / 1300 550 / 550 Balance 2300 / 2300 -660 / -660 1839 / 1839 Weight 163 lb Intake & Output: Intake & Output 04/06/17 04/07/17 04/07/17 21:59 05:59 13:59 Intake Total 2300 / 2300 640 / 640 2389 / 2389 Output Total 0 / 0 1300 / 1300 550 / 550 Balance 2300 / 2300 -660 / -660 1839 / 1839 Weight 163 lb Intake: IV 1520 / 1520 1189 / 1189 Sodium Chloride 0.9% 1,000 ml @ 1000 / 1000 1046 / 1046 150 mls/hr IV .Q6H40M [facility] Rx#: [id number] Potassium Phosphate 40 Meq In 42 / 42 Sodium Chloride 0.9% 500 ml @ 127.273 mls/hr IV ONCE ONE Rx#: [id number] Vitamin B1 100 mg In Sodium 51 / 51 Chloride 0.9% 50 ml @ 50 mls/hr IV DAILY [facility] Rx#:[id number] Oral 780 / 780 640 / 640 1200 / 1200 Output: Void Amount 0 / 0 1300 / 1300 550 / 550 Other: Meal Dinner Breakfast Percent of Meal Consumed 75% 100% General appearance: cooperative, no acute distress Exam: alert oriented nonlabored breathing Minimal anxiety No agitation No telemetry events Medical - PN: Obj Da - Labs CBC & Chem 7: 04/07/17 03:45 04/07/17 03:45 Labs: Abnormal Lab Results 04/07/17 04/07/17 04/06/17 03:45 03:45 17:06 RBC 3.75 L Hgb 11.0 L Hct 32.5 L RDW 15.9 H Gran % Lymph % (Auto) 51.8 H Gran # Lymph # (Auto) Sodium 131 L 131 L Potassium Chloride 95 L Carbon Dioxide Anion Gap BUN Creatinine 0.5 L Glucose Calcium 7.5 L 7.8 L Phosphorus 1.4 L Magnesium 1.5 L Total Bilirubin GGT 82 H AST Alkaline Phosphatase Myoglobin Total Protein 4.4 L Albumin 2.5 L Globulin 1.9 L Urine Protein Urine Ketones Urine Urobilinogen Urine RBC Urine WBC Ur Squamous Epith Cells Urine Bacteria Hyaline Casts U Marijuana (THC) Screen 04/06/17 04/06/17 04/05/17 04:00 04:00 22:40 RBC Hgb Hct RDW 15.6 H Gran % 37.4 L Lymph % (Auto) 54.5 H Gran # Lymph # (Auto) Sodium 132 L 127 L Potassium 3.1 L 2.9 L* Chloride 88 L 85 L Carbon Dioxide 31 H 33 H Anion Gap BUN 22 H Creatinine Glucose 126 H Calcium 7.9 L 7.7 L Phosphorus 1.7 L Magnesium Total Bilirubin 1.1 H GGT 88 H AST 39 H Alkaline Phosphatase Myoglobin Total Protein 5.0 L Albumin 2.8 L Globulin Urine Protein Urine Ketones Urine Urobilinogen Urine RBC Urine WBC Ur Squamous Epith Cells Urine Bacteria Hyaline Casts U Marijuana (THC) Screen 04/05/17 04/05/17 04/05/17 17:20 11:25 11:25 RBC Hgb Hct RDW Gran % Lymph % (Auto) Gran # Lymph # (Auto) Sodium 129 L 127 L Potassium 2.1 L* 1.8 L* Chloride 80 L 71 L Carbon Dioxide 34 H 37 H Anion Gap 19.0 H BUN 24 H 27 H Creatinine Glucose 116 H 131 H Calcium 8.4 L Phosphorus 2.5 L Magnesium Total Bilirubin 1.1 H GGT AST 58 H Alkaline Phosphatase 123 H Myoglobin 76 H Total Protein Albumin Globulin Urine Protein Urine Ketones Urine Urobilinogen Urine RBC Urine WBC Ur Squamous Epith Cells Urine Bacteria Hyaline Casts U Marijuana (THC) Screen 04/05/17 04/05/17 04/05/17 11:11 11:11 10:34 RBC 6.09 H Hgb 17.4 H Hct 51.5 H RDW 15.4 H Gran % 82.2 H Lymph % (Auto) 11.2 L Gran # 8.8 H Lymph # (Auto) 1.2 L Sodium Potassium Chloride Carbon Dioxide Anion Gap BUN Creatinine Glucose Calcium Phosphorus Magnesium Total Bilirubin GGT AST Alkaline Phosphatase Myoglobin Total Protein Albumin Globulin Urine Protein 100 A Urine Ketones 80 A Urine Urobilinogen 4.0 A Urine RBC 2 H Urine WBC 10 H Ur Squamous Epith Cells 6 H Urine Bacteria Few A Hyaline Casts 116 H U Marijuana (THC) Screen Suspect positive A Meds: Medications Acetaminophen (Tylenol) 650 mg PO Q4-6HP PRN PRN Reason: PAIN/FEVER > 101 Last Admin: 04/07/17 10:53 Dose: 650 mg Clonidine HCl (Catapres) 0.1 mg PO Q4HP PRN PRN Reason: Alcohol Withdrawal Folic Acid (Folic Acid) 1 mg PO DAILY [facility] Last Admin: 04/07/17 09:02 Dose: 1 mg Heparin Sodium (Porcine) (Heparin) 5,000 unit SQ Q12 [facility] Last Admin: 04/07/17 09:02 Dose: 5,000 unit Thiamine HCl 100 mg/ Sodium (Chloride) 51 mls @ 50 mls/hr IV DAILY [facility] Last Infusion: 04/07/17 10:15 Dose: Infused Iron Carb/Multivit/[place]/Folic Acid (Multivitamin W/Minerals) 1 tab PO DAILY [facility] Last Admin: 04/07/17 09:02 Dose: 1 tab Lorazepam (Ativan) 0 mg IV Q4HP PRN; Protocol PRN Reason: Alcohol Withdrawal Naloxone HCl (Narcan) 0.1 mg IV Q2MIN PRN PRN Reason: Opiate Reversal Ondansetron HCl (Zofran) 4 mg IV Q4-6HP PRN PRN Reason: Nausea And Vomiting Last Admin: 04/07/17 10:53 Dose: 4 mg Pantoprazole Sodium (Protonix) 40 mg IV BIDAC [facility] Last Admin: 04/07/17 07:57 Dose: 40 mg Potassium/Phosphorus/Sodium (Neutra Phos) 2 packet PO BID [facility] Last Admin: 04/07/17 09:02 Dose: 2 packet Quetiapine Fumarate (Seroquel) 300 mg PO HS [facility] Last Admin: 04/06/17 20:23 Dose: 300 mg Sodium Chloride (Saline Flush) 10 ml IV Q8 [facility] Last Admin: 04/07/17 05:11 Dose: Not Given Medical - PN: A/P - Time Spent With Patient Total time spent is greater than 50% in coordination of care (as documented) at patient's floor/unit and/or counseling patient: 25 - 35 minutes - Narrative A/P Narrative: assessment * Critical Hypokalemia: potassium normalized with aggressive replacement * hypo-magnesium 1.5 and low phosphorus 1.4-on replacement * Hyponatremia: due to dehydration. sodium at 131 * Severe Metabolic Alkalosis: Ph 7.65, due to volume depletion * Etoh abuse/ : CIWA protocol, thiamine,folic acid and multivitamin. no evidence of withdrawals * Nausea/ vomiting: etiology. suspect bulimic episodes. if persistent patient will require upper endoscopy evaluation to rule out gastric outlet obstruction * Severe volume depletion: clinically resolved * acute paranoia: await [facility] evaluation in a.m. anticipate discharge to inpatient psych versus home based on Q evaluation. Continue seroquel 300mg qhs as her home dose * dvt hep sq * Full code plan * transfer to medical floor * Continue aggressive electrolyte Replacement * quality behavioral health Consult in a.m. Medical - PN: Qual - VTE Deep Vein Thrombosis/Pulmonary Embolism Present on Admission: No
--- NOTE | 2017-04-07 17:37 | General Surgery Consult Note ---
History of Present Illness Patient information: Note initiated : 04/07/17 at 5:32 pm Service Date, if different from initiated Date: [] Patient: Oksana Salcedo 51 y/o F admitted on 04/05/17 for Critical Hypokalemia, Severe Metalbolic Alkalosis. Chief Complaint: [] Consult date: 04/07/17 Requesting physician: Alvin Mittal (Wound Left axilla.) History of present illness: I saw this patient along with Meagan DENNIS , In patient wound care nurse. Reviewed her EHR record and progress with JEANNIE Macedo in ICU. 51/F H/O psych issues and alcohol dependence. Admitted to hospital emergently with vomiting and electrolyte imbalance. She needed aggressive corrections of her metabolic abnormalities, with close hemo dynamic monitoring. Noted to have Left axillary suppurative skin lesions with purulence. No acute signs of inflammation. Medications and Allergies Home Medications Medication Instructions Recorded Confirmed Type No Known Home Meds [No Known Home 04/05/17 04/05/17 History Meds] Allergies Allergy/AdvReac Type Severity Reaction Status Date / Time No Known Drug Allergies Allergy Unverified 04/05/17 09:59 Exam Temp Pulse Resp BP Pulse Ox 97.6 F 74 19 94/70 98 04/07/17 16:01 04/07/17 16:01 04/07/17 16:01 04/07/17 16:01 04/07/17 16:01 - General physical appearance well developed, well nourished, no distress, other (edentolous.) - Eyes PERRL, normal ocular movement - ENT normal pinna, normal nares, normal mucosa, no congestion - Head Head exam IM: Present: atraumatic, normal inspection, normocephalic - Neck no masses, no bruits, trachea midline, no venous distension - Cardiovascular Cardiovascular exam IM: Present: normal rate and rhythm - Respiratory normal expansion, normal respiratory effort, clear to auscultation - Abdomen Abdomen: Present: soft, non tender, bowel sounds - Integumentary Present: other (LEFT AXILLARY hidradenitis with superficial suppuration at points of hair line. Patient shaves her armpits.) - Neurologic Present: normal coordination, other (No focal neurologic deficits noted. ) - Musculoskeletal Present: other (THOMPSON. Sitting up in bed.) - Psychiatric Present: oriented to time, oriented to place, speech is normal Results - Labs 04/07/17 03:45 04/07/17 03:45 Abnormal lab results 04/06/17 04/07/17 04/07/17 Range/Units 17:06 03:45 03:45 RBC 3.75 L (4.00-5.20) M/mcL Hgb 11.0 L (12.0-15.0) g/dL Hct 32.5 L (36.0-48.0) % RDW 15.9 H (11.5-14.5) % Lymph % (Auto) 51.8 H (15.5-49.0) % Sodium 131 L 131 L (133-145) mmol/L Chloride 95 L (96-108) mmol/L Creatinine 0.5 L (0.6-1.1) mg/dl Calcium 7.8 L 7.5 L (8.6-10.4) mg/dl Phosphorus 1.4 L (2.7-4.5) mg/dL Magnesium 1.5 L (1.6-2.5) mg/dL GGT 82 H (5-36) U/L Total Protein 4.4 L (5.9-8.4) gm/dL Albumin 2.5 L (3.2-5.2) gm/dL Globulin 1.9 L (2.2-3.7) gm/dL Diabetes panel 04/06/17 04/07/17 Range/Units 17:06 03:45 Sodium 131 L 131 L (133-145) mmol/L Potassium 4.7 4.3 (3.3-5.1) mmol/L Chloride 95 L 97 (96-108) mmol/L Carbon Dioxide 24 23 (22-30) mmol/L BUN 18 17 (6-20) mg/dl Creatinine 0.7 0.5 L (0.6-1.1) mg/dl Glucose 96 90 (70-105) mg/dL Calcium 7.8 L 7.5 L (8.6-10.4) mg/dl AST 35 (0-37) U/l ALT 23 (0-40) U/l Alkaline Phosphatase 75 (39-117) U/L Total Protein 4.4 L (5.9-8.4) gm/dL Albumin 2.5 L (3.2-5.2) gm/dL Triglycerides 105 (<150) mg/dl Calcium panel 04/06/17 04/07/17 Range/Units 17:06 03:45 Calcium 7.8 L 7.5 L (8.6-10.4) mg/dl Phosphorus 1.4 L (2.7-4.5) mg/dL Albumin 2.5 L (3.2-5.2) gm/dL Pituitary panel 04/06/17 04/07/17 Range/Units 17:06 03:45 Sodium 131 L 131 L (133-145) mmol/L Potassium 4.7 4.3 (3.3-5.1) mmol/L Chloride 95 L 97 (96-108) mmol/L Carbon Dioxide 24 23 (22-30) mmol/L BUN 18 17 (6-20) mg/dl Creatinine 0.7 0.5 L (0.6-1.1) mg/dl Glucose 96 90 (70-105) mg/dL Calcium 7.8 L 7.5 L (8.6-10.4) mg/dl Adrenal panel 04/06/17 04/07/17 Range/Units 17:06 03:45 Sodium 131 L 131 L (133-145) mmol/L Potassium 4.7 4.3 (3.3-5.1) mmol/L Chloride 95 L 97 (96-108) mmol/L Carbon Dioxide 24 23 (22-30) mmol/L BUN 18 17 (6-20) mg/dl Creatinine 0.7 0.5 L (0.6-1.1) mg/dl Glucose 96 90 (70-105) mg/dL Calcium 7.8 L 7.5 L (8.6-10.4) mg/dl Total Bilirubin 0.4 (0.0-1.0) mg/dL AST 35 (0-37) U/l ALT 23 (0-40) U/l Alkaline Phosphatase 75 (39-117) U/L Total Protein 4.4 L (5.9-8.4) gm/dL Albumin 2.5 L (3.2-5.2) gm/dL All other labs normal. Assessment and Plan (1) Hidradenitis suppurativa of left axilla Status: Chronic Priority: Medium Comment: Area cleaned with NS. Chronic contaminated site. Will treat with topical Bacitracin ointment and f/u in wound care center after discharge. Local wound care discussed with nursing staff.
[2017-04-07] MEDS ORDERED: ONDANSETRON 4 MG/2 ML VIAL IV PRN (17:38)
[2017-04-07] MEDS ORDERED: cloNIDine HCL 0.1 MG TABLET PO PRN (17:38)
[2017-04-07] MEDS ORDERED: LORazepam 2 MG/ML VIAL IV PRN (17:38)
[2017-04-07] MEDS ORDERED: NALOXONE HCL 0.4 MG/ML VIAL IV PRN (17:38)
[2017-04-07] MEDS ORDERED: QUEtiapine 100 MG TABLET PO SCH (21:00)
[2017-04-08] MEDS: 0.9 % SODIUM CHLORIDE 10 ML SYRINGE IV SCH (06:06)
[2017-04-08 07:26] LABS: Basophils # (Auto) 0 K/mcL (0.0-0.3); Basophils % (Auto) 0.7 % (0.0-2.0); Eosinophils # (Auto) 0.1 K/mcL (0.0-0.7); Eosinophils % (Auto) 2.7 % (0.0-7.0); Lymphocytes # (Auto) 1.9 K/mcL (1.5-4.8); Lymphocytes % (Auto) 45.2 % (15.5-49.0); Mean Cell Volume 85.9 fL (80.0-100.0); Mean Corpuscular HGB Conc 33.9 g/dL (31.0-36.0); Mean Corpuscular Hemoglobin 29.1 pg (26.0-34.0); Monocytes # (Auto) 0.3 K/mcL (0.1-0.9); Monocytes % (Auto) 7.4 % (1.0-12.0); Platelet Count 177 K/mcL (140-440); RBC 3.92 M/mcL (4.00-5.20); Red Cell Distribution Width 15.9 % (11.5-14.5)
[2017-04-08] MEDS ORDERED: PANTOPRAZOLE 40 MG VIAL IV SCH (07:30)
[2017-04-08 07:49] LABS: ALT/SGPT 23 U/l (0-40); Albumin 2.5 gm/dL (3.2-5.2); Albumin/Globulin Ratio 1.2 (1.0-2.3); Alkaline Phosphatase 73 U/L (39-117); Bilirubin,Direct < 0.2 mg/dL (0.0-0.3); Blood Urea Nitrogen 10 mg/dl (6-20); Gamma Glutamyl Transpeptidase 84 U/L (5-36); Uric Acid 3.2 mg/dL (2.5-8.0)
[2017-04-08] MEDS ORDERED: THIAMINE 100 MG TABLET PO SCH (09:00)
[2017-04-08] MEDS ORDERED: FOLIC ACID 1 MG TABLET PO SCH (09:00)
[2017-04-08] MEDS ORDERED: MULTIVIT,THER IRON,CA,FA & MIN 1 TABLET PO SCH (09:00)
[2017-04-08] MEDS: ACETAMINOPHEN 325 MG TABLET PO PRN (09:10)
[2017-04-08] MEDS: NEUTRA PHOS 1 PACKET PO SCH (09:20)
[2017-04-08] MEDS: HEPARIN 5,000 UNIT/ML VIAL SQ SCH (09:21)
--- NOTE | 2017-04-08 10:22 | Discharge Summary ---
Medical - DS: Prov Patient information: Note initiated : 04/08/17 at 10:21 am Service Date, if different from initiated Date: [] Patient: Oksana Salcedo 51 y/o F admitted on 04/05/17 for Critical Hypokalemia, Severe Metalbolic Alkalosis. Chief Complaint: [] Date of admission: 04/05/17 14:56 Discharge date: 04/08/17 Consults: 04/05/17 13:07 Consult to Physician [CONS] Stat Comment: Consulting Provider: Gi Houser Reason For Exam: Physician to Consult 04/07/17 11:19 Consult to Physician [CONS] Routine Comment: Consulting Provider: Amando Martines Reason For Exam: Open wound to left axilla with purulent drainage Medical - DS: Meds - Discharge Medications Prescriptions: QUEtiapine [Seroquel] 300 mg PO HS #30 tab Active and Home Medications: Home Medications QUEtiapine [Seroquel] 300 mg PO HS #30 tab 04/08/17 [Rx Last Taken Unknown] Medical - DS: Hosp Hospital course: Discharge diagnosis * acute paranoia with intermittent psychosis-patient will be discharged homeas per [facility] eval recommendatiosn She is currently on seroquel 300 * multiple electrolyte derangements including critical Hypokalemia,hypo- magnesium, low phosphorus - managed with aggressive replacement and normalized * Hyponatremia: due to alcoholism and low salt intake normalized to 137 from 127 * Severe Metabolic Alkalosis: econdary to volume depletion clinically resolved * Etoh abuse/ :managed per [facility] protocol, thiamine,folic acid and multivitamin. no evidence of withdrawals * Nausea/ vomiting: etiology. suspect bulimic episodes. if persistent patient will require upper endoscopy evaluation to rule out gastric outlet obstruction * Severe volume depletion: clinically resolved with aggressive crystalloids [facility] Ms. Salcedo is a 51 year old Female with h/o mental health disorder, paranoid behavoru, alcohol abuse, who presents to the ER for evaluation of dizziness , nause and vomiting. The patient is a very poor historian and changes her story multiple times, she notes that she came to the ER for evaluation of dizziness and nausea which has been botherhing her for many years, but today felt that like she has had it and therefore came to the ER. THe patient admits to poor oral intake, and vmoting every time she tries to eat something, but besides that denies any other complaints Intermittently nicely talking, and intermitently crying. History reviewed from ER note is a completely different story, on talking with health care provider in ER, the patient has been admitted in in psych facility , and we are in the process of obtaining records. For the time being the patient juan any SI, but as per the ER note the patient is thinks she is not going to live if she is discharged, and is drinking her self to I am not able to quantify the amount of alcohol consumed, or who is bringing the alcohol to the patient, its noted she drinks 2 boxes a day. The patient lives by self, and her ex checks on her intermittently, but she thinks she lives with him. In the ER the patient was noted to be dehydrated, she has hemoconcentration in labs with hb 17, hct 51, Na 127, Cl 71, K 1.8, bicarb 31 creat 1.0, Her ABG is Ph 7.65/42/73, Her EKG shows sinus rhythm lafb, u waves merged with t waves. Her Tylenol level, salicylate level and ethanol were neg. The patient is being admitted to the PCU for critical hypokalemia, severe metabolic alkalosis, and high risk for alcohol withdrawal. CT head and Chest X ray is neg. apr 06 patient seen examined, doing well, eating breakfast this AM, still has some dizziness, but feels much better. No other complaints K is much better now, at 3.1, on oral and IV replacement. No events on tele April 07-patient doing a lot better. Improving potassium and other electrolytes with aggressive replacement. On discussion with Spike is a history consisting with bulimia with induced vomiting however at this time patient does not have any signs of nausea persistent vomiting since hospitalization. Given her previous symptoms of postprandial recurrent emesis and upper endoscopy will be mandated to rule out outlet obstruction. overall patient feels a lot better. She is upbeat. There is no evidence of suicidal ideation or mental status change. Treatment plan and discussions were undertaken the presence of ex- case management team and patient. She will be evaluated by quality behavioral health services in the next 24 hours once her electrolytes have normalized for discharge placement/planning coordination 04/08- electrolyte abnormalities corrected back to baseline. Patient hemodynamically and clinically stable. Cleared by [facility] services. Patient will discharge home as per [facility] recommendations. Discharge diagnosis: . - Time Spent with Patient Total time spent providing and/or coordinating discharge services: Greater than 30 minutes Medical - DS: Exam - Constitutional Vitals: Vital Signs Temp Pulse Pulse Pulse Resp BP BP 04/08/17 09:43 99 F 80 18 115/62 04/08/17 04:32 97 F 87 18 118/80 04/07/17 23:00 98.1 F 80 16 103/68 04/07/17 19:00 98.3 F 82 18 104/68 04/07/17 16:01 97.6 F 74 19 94/70 04/07/17 15:00 23 H 109/82 04/07/17 14:01 20 108/73 04/07/17 13:01 16 114/91 04/07/17 12:00 98.7 F 18 103/68 04/07/17 11:00 78 21 98/69 Pulse Ox 04/08/17 09:43 97 04/08/17 04:32 97 04/07/17 23:00 98 04/07/17 19:00 99 04/07/17 16:01 98 04/07/17 15:00 98 04/07/17 14:01 97 04/07/17 13:01 04/07/17 12:00 100 04/07/17 11:00 100 Intake and Output 04/07/17 04/08/17 04/08/17 21:59 05:59 13:59 Intake Total 982.0909 / 982.0909 500 / 500 480 / 480 Output Total 475 / 475 200 / 200 Balance 507.0909 / 507.0909 300 / 300 480 / 480 Intake: IV 732.0909 / 732.0909 Oral 250 / 250 500 / 500 480 / 480 Output: Void Amount 475 / 475 200 / 200 Other: Meal Breakfast Percent of Meal Consumed 100% Feeding Ability Independent # Voids 1 2 1 Weight 163 lb Medical - DS: Data Labs on day of discharge: Labs from last 24 hours 04/08/17 04/08/17 04/08/17 06:35 06:35 04:30 WBC 4.1 L RBC 3.92 L Hgb 11.4 L Hct 33.7 L MCV 85.9 MCH 29.1 MCHC 33.9 RDW 15.9 H Plt Count 177 MPV 8.3 Gran % 44.0 Lymph % (Auto) 45.2 [place] % (Auto) 7.4 Eos % (Auto) 2.7 Baso % (Auto) 0.7 Gran # 1.8 Lymph # (Auto) 1.9 [place] # (Auto) 0.3 Eos # (Auto) 0.1 Baso # (Auto) 0 Sodium 137 TNP Potassium 4.4 TNP Chloride 102 TNP Carbon Dioxide 25 TNP Anion Gap 10.0 TNP BUN 10 TNP Creatinine 0.6 TNP GFR Calculation 106 TNP Glucose 83 TNP Uric Acid 3.2 TNP Calcium 8.0 L TNP Phosphorus 2.8 TNP Magnesium 1.5 L TNP Total Bilirubin 0.3 TNP Direct Bilirubin < 0.2 TNP GGT 84 H TNP AST 34 TNP ALT 23 TNP Alkaline Phosphatase 73 TNP Lactate Dehydrogenase 196 TNP Total Protein 4.6 L TNP Albumin 2.5 L TNP Globulin 2.1 L TNP Albumin/Globulin Ratio 1.2 TNP Triglycerides 124 TNP 04/08/17 04:30 WBC TNP RBC TNP Hgb TNP Hct TNP MCV TNP MCH TNP MCHC TNP RDW TNP Plt Count TNP MPV TNP Gran % Lymph % (Auto) [place] % (Auto) Eos % (Auto) Baso % (Auto) Gran # Lymph # (Auto) [place] # (Auto) Eos # (Auto) Baso # (Auto) Sodium Potassium Chloride Carbon Dioxide Anion Gap BUN Creatinine GFR Calculation Glucose Uric Acid Calcium Phosphorus Magnesium Total Bilirubin Direct Bilirubin GGT AST ALT Alkaline Phosphatase Lactate Dehydrogenase Total Protein Albumin Globulin Albumin/Globulin Ratio Triglycerides Medical - DS: A/P - Patient/Caregiver Discharge Instructions Activity: increase activity as tolerated Diet: Regular Diet Additional Instructions: Daily counseling at home by [facility]. Continue Seroquel 300 mg at bedtime Regular diet Prescriptions: QUEtiapine [Seroquel] 300 mg PO HS #30 tab - Follow up Plan Follow up with: Amando Martines MD [Physician] - (follow up at [facility] for carbuncle Left armpit) Tamara Sherman DO [Physician] - 04/14/17 2:45 pm Disposition: Home, Self-Care Prognosis: Fair Rehab Potential: Fair I certify that the patient requires SNF services: No Overall status at discharge: patient is progressing back to baseline Medical - DS: Qual - VTE Deep Vein Thrombosis/Pulmonary Embolism Present on Admission: No
== END 2017-04-08 14:30 | disposition home or self-care (01) | DRG 641 ==
LOC: ED 09:49 → ICU 14:56 → MEDSUR 04-07 18:40
PROVIDERS: ADMIT Internal Medicine; ATTEND Internal Medicine

== ENCOUNTER 2018-05-18 15:05 | Observation (INO) ==
[2018-05-18] MEDS ORDERED: POTASSIUM PHOSPHATE 40 MEQ in DEXTROSE 5% IN WATER 500 ML IV ONE (15:30)
[2018-05-18 16:32] LABS: Basophils # (Auto) 0 K/mcL (0.0-0.3); Basophils % (Auto) 0.7 % (0.0-2.0); Eosinophils # (Auto) 0.2 K/mcL (0.0-0.7); Eosinophils % (Auto) 3.2 % (0.0-7.0); Granulocytes % (Auto) 53.4 % (38.0-78.0); Lymphocytes # (Auto) 2.2 K/mcL (1.5-4.8); Lymphocytes % (Auto) 35.6 % (15.5-49.0); Mean Cell Volume 88.1 fL (80.0-100.0); Mean Corpuscular HGB Conc 32.9 g/dL (31.0-36.0); Monocytes # (Auto) 0.4 K/mcL (0.1-0.9); Monocytes % (Auto) 7.1 % (1.0-12.0); Platelet Count 210 K/mcL (140-440); RBC 4.19 M/mcL (4.00-5.20); Red Cell Distribution Width 20.2 % (11.5-14.5)
[2018-05-18] MEDS ORDERED: oxyCODONE/APAP 5/325MG TABLET PO PRN (16:32)
[2018-05-18] MEDS ORDERED: ACETAMINOPHEN 325 MG TABLET PO PRN (16:32)
[2018-05-18] MEDS ORDERED: NALOXONE HCL 0.4 MG/ML VIAL IV PRN (16:32)
[2018-05-18] MEDS ORDERED: ONDANSETRON 4 MG/2 ML VIAL IV PRN (16:32)
[2018-05-18] MEDS ORDERED: POTASSIUM CHLORIDE 20 MEQ PACKET PO ONE ×2 (16:34→21:00)
--- NOTE | 2018-05-18 16:44 | Internal Med History&Physical ---
Medical - H&P: HPI Patient information: Note initiated : 05/18/18 at 4:41 pm Service Date, if different from initiated Date: [] Patient: Oksana Salcedo a 52 y/o F admitted on 05/18/18 for Hypokalemia. Chief Complaint: [] History of present illness: Ms. Salcedo is a 52 year old F with h/o intermittent intractable nausea vomiting, followed by GI at [facility], she also has history of chronic hypokalemia presents to the hospital today for an orthopedic surgery. The patient had presented to [facility] emergency room yesterday after a fall and pain in the left wrist. The patient noted that she has not been able to eat or drink much for the last few days because of her nausea and vomiting. Only sipping some Gatorade. She was dizzy and fell down approximately 3 days ago and had significant pain in her left wrist. She presented with the symptoms at the emergency room yesterday. Her left wrist had a fracture which was reduced in the ER and she was advised to follow-up with orthopedics. Her labs showed that she had a potassium of 2.5 she was given some IV potassium and oral replacement and advised to follow-up as an outpatient This morning I believe her potassium was 2.8 on the chemistry, the patient presented for surgery at this hospital today and a point of care potassium was noted to be 2.3. The patient was therefore asked to be admitted by the hospitalist service for management of severe hypokalemia and the surgery was postponed The patient has been followed up for her GI symptoms by [facility], she has had a gastric emptying study done by Dr. Alcala I believe July 2017 which shows gastroparesis possible partial gastric outlet obstruction, I do not have an official copy of the endoscopy report however I do see that she has had an EGD done last year, I do have access to the pathology report which shows chronic gastritis Patient does have some behavioral issues, she is also had cannabinoids positive in the urine in the past Review of systems: Denies headache, dizziness Denies chest pain, palpitations Denies cough or shortness of breath Abdominal pain nausea vomiting present, abdominal pain is related to nausea and vomiting Medical - H&P: PMH Medical history: Medical History (Last Reviewed 01/04/18 @ 09:50 by Florinda Rush, [employer] SAL[employer]OUNT MANAGER) Low vitamin D level (Acute) Osteomalacia (Acute) Myofascial pain (Acute) CLIVE positive (Acute) Alcohol abuse (Chronic ~04/13/17) Gastroparesis (Chronic) Anxiety (Chronic) Bulimia (Chronic) Heartburn (Chronic) Gastro-esophageal reflux disease with esophagitis (Chronic) Esophageal dysphagia (Chronic) Nondiabetic gastroparesis (Chronic) Mental disorder (Chronic) Positive depression screening (Chronic) Problem behavior (Chronic ~04/13/17) Burping (Chronic ~06/23/17) Nausea & vomiting (Chronic) Irritable bowel syndrome (Chronic ~07/29/17) Hiatal hernia (Chronic ~07/06/17) Insomnia (Chronic ~04/14/17) Post-traumatic stress disorder, chronic (Chronic ~04/14/17) Obesity (Chronic ~04/14/17) Skin eruption (Chronic) Epigastric pain (Chronic) Surgical history: Past Surgical History (Last Reviewed 01/04/18 @ 09:50 by Florinda Rush [facility]) H/O oral surgery (Chronic) History of 2 sections (Chronic) History of esophagogastroduodenoscopy (EGD) (Chronic) Family history: reviewed and not pertinent Medical - H&P: Meds Home Medications Medication Instructions Recorded Confirmed Type Promethazine [Phenergan] 25 mg MT Q4-6HP PRN #10 supp.rect 04/18/17 05/18/18 Rx Bacillus coagulans PO QDAY 10/27/17 01/04/18 History linaclotide 145 mcg capsule 145 mcg PO .unk cap 10/27/17 05/18/18 History metoclopramide 10 mg tablet 10 mg PO .unk tab 10/27/17 05/18/18 History naproxen sodium PO PRN 10/27/17 01/04/18 History omeprazole 40 mg capsule,delayed 40 mg PO .unk cap 10/27/17 05/18/18 History release ondansetron 8 mg disintegrating 8 mg PO .q8 PRN tab 10/27/17 05/18/18 History tablet peg-electrolyte solution 420 gram 240 ml PO .unk ml 10/27/17 05/18/18 History oral solution quetiapine 100 mg tablet 100 mg PO QHS tab 10/27/17 05/18/18 History triamcinolone acetonide 0.1 % 1 applic TOPICAL BID 10/27/17 05/18/18 History topical cream potassium chloride ER 10 mEq 10 meq PO TID #21 tab 12/01/17 05/18/18 Rx tablet,extended release HYDROcodone/ACETAMINOPHEN [[place] 1 each PO Q8 PRN #15 tab 12/30/17 05/18/18 Rx 7.5-325 Tablet] morphine [Ms Contin] 15 mg PO BID #10 tab.sr.12h 12/30/17 05/18/18 Rx cholecalciferol (vitamin D3) 50,000 unit PO QWEEK #12 cap 02/09/18 Rx 50,000 unit capsule Allergies Allergy/AdvReac Type Severity Reaction Status Date / Time No Known Drug Allergies Allergy Verified 01/04/18 09:48 Medical - H&P: Exam - Constitutional Vitals: Temp Resp BP Pulse Ox 98.3 F 18 141/94 100 05/18/18 16:00 05/18/18 16:00 05/18/18 16:00 05/18/18 16:00 Exam: GENERAL: The patient is a well-developed, well-nourished in no apparent distress. Is alert and oriented x3. VITAL SIGNS: Reviewed and as noted elsewhere. HEENT: Head is normocephalic and atraumatic. Extraocular muscles are intact. Pupils are equal, round, and reactive to light. Nares appeared normal. Mouth appears any without lesions. Mucous membranes are moist. NECK: Normal to inspection, Supple, No lymphadenopathy or thyromegaly. LUNGS: Air entry equal on both sides, no wheezing, crackles or rhonchi noted. No accessory muscles of respiration HEART: Regular rate and rhythm normal, S1 and S2 heard, no Gallop, S3 or Rub Noted, No Gross murmur heard. ABDOMEN: Soft, nontender, and nondistended. Positive bowel sounds. No hepatosplenomegaly was noted. EXTREMITIES: No cyanosis, clubbing, rash, lesions or edema. Left hand in cast NEUROLOGIC: Cranial nerves II through XII are grossly intact. Motor and Sensory System Grossly Intact PSYCHIATRIC: Normal affect, Normal Mood. Appropriate Behavior. SKIN: No ulceration or wounds noted, No jaundice, No rash noted. Medical - H&P: Reslt - Labs CBC & Chem 7: 05/18/18 16:08 05/18/18 16:08 Labs: Short CBC 03/07/19 Range/Units 16:08 WBC 6.1 (4.5-11.0) K/mcL Hgb 12.1 (12.0-15.0) g/dL Hct 36.9 (36.0-48.0) % Plt Count 210 (140-440) K/mcL Medical - H&P: A/P - Narrative A/P Narrative: A/P Severe Hypokalemia -EKG reviewed, has prolonged QT, monitor on telemetry -Patient is getting IV potassium replacement at this 40 mEq has been ordered -I will add 80 mg orally and another 40 IV at night -So the patient will total of 80 IV and 80 p.o. -Check urine potassium, check magnesium level -Patient is chronically low on potassium it was my understanding that she was supposed to be on potassium replacement however she has had changes in her PCP a nd notes that she was unable to get her medications refilled, educated at length that potassium can be bought [id number] also explained foods that are rich in potassium Nausea vomiting -This is a chronic issue, has been followed by GI as an outpatient I would advise her to continue follow-up with GI for same -Check urine drug screen to see if cyclical vomiting is a possible etiology here given history of cannabinoids in the past Behavioral disorder -Resume home medications once verified Left wrist fracture -Anticipate surgery tomorrow, -Pain management DVT prophylaxis -Heparin subcutaneous Full code Regular diet for now n.p.o. midnight except meds in anticipation for surgery tomorrow Social History - Social History household members: other occupational status: disabled - Exercise frequency: other - Tobacco smoking status: Current some day smoker smoking status stop date: 03/14/16 - Alcohol alcohol intake frequency: does not drink - Substance use substance use type: does not use - Safety seatbelt use: always - Home Safety working smoke detector in home: Yes firearms in home: No
[2018-05-18 16:54] LABS: ALT/SGPT 31 U/l (0-40); Albumin 2.7 gm/dL (3.2-5.2); Alkaline Phosphatase 134 U/L (39-117); Bilirubin,Direct 0.2 mg/dL (0.0-0.3); Blood Urea Nitrogen 12 mg/dl (6-20); Gamma Glutamyl Transpeptidase 122 U/L (5-36); Uric Acid 9.9 mg/dL (2.5-8.0)
[2018-05-18] MEDS ORDERED: MAGNESIUM SULFATE 32.48 MEQ in DEXTROSE 5% IN WATER 100 ML IV ONE (16:56)
[2018-05-18] MEDS: HYDROmorphone 2 MG/ML VIAL IV PRN ×3 (17:11→23:00)
[2018-05-18] MEDS: PANTOPRAZOLE 40 MG VIAL IV SCH (17:12)
[2018-05-18] MEDS: DEXTROSE 5%-LR 1,000 ML IV SCH (17:52)
[2018-05-18 19:57] LABS: Amphetamine Screen,Urine NONE DETECTED (NONDETECTED); Benzodiazepines Screen,Urine NONE DETECTED (NONDETECTED); Cocaine Screen,Urine NONE DETECTED (NONDETECTED); Oxycodone, Urine Screen NONE DETECTED (NONDETECTED)
[2018-05-18 20:45] LABS: Opiate Screen,Urine SUSPECT POSITIVE (NONDETECTED)
[2018-05-18] MEDS: HEPARIN 5,000 UNIT/ML VIAL SQ SCH (20:46)
[2018-05-18 20:51] LABS: Appearance,Urine CLEAR; Bacteria,Urine 0 /hpf (0); Bilirubin,Urine NEG (NEG); Color,Urine YELLOW; Glucose,Urine (UA) NEGATIVE (NEG); Leukocyte Esterase,Urine NEG /uL (NEG); Mucus,Urine MOD /hpf (0); Protein,Urine NEG (NEG); Specific Gravity,Urine 1.023 (1.000-1.035); Urine Blood NEG mg/dL (<0.03); Urine Hyaline Cast 25 /lpf (0-2); Urine RBC 1 /hpf (0-1); Urine Squamous Epithelial Cell 3 /hpf (0-4); Urine WBC 9 /hpf (0-4)
[2018-05-18] MEDS ORDERED: THIAMINE 100 MG TABLET PO SCH (21:00)
[2018-05-18] MEDS: 0.9 % SODIUM CHLORIDE 10 ML SYRINGE IV SCH (21:49)
[2018-05-18] MEDS ORDERED: POTASSIUM CHLORIDE 40 MEQ in DEXTROSE 5% IN WATER 500 ML IV ONE (22:00)
[2018-05-18 22:12] LABS: Blood Urea Nitrogen 11 mg/dl (6-20)
[2018-05-19] MEDS: DEXTROSE 5%-LR 1,000 ML IV SCH ×2 (02:20→11:48)
[2018-05-19] MEDS: HYDROmorphone 2 MG/ML VIAL IV PRN ×2 (03:56→06:52)
[2018-05-19] MEDS: 0.9 % SODIUM CHLORIDE 10 ML SYRINGE IV SCH (04:12)
[2018-05-19] MEDS: PANTOPRAZOLE 40 MG VIAL IV SCH (06:51)
[2018-05-19 08:05] LABS: ALT/SGPT 27 U/l (0-40); Albumin 2.6 gm/dL (3.2-5.2); Albumin/Globulin Ratio 1.2 (1.0-2.3); Alkaline Phosphatase 122 U/L (39-117); Bilirubin,Direct 0.2 mg/dL (0.0-0.3); Blood Urea Nitrogen 10 mg/dl (6-20); Gamma Glutamyl Transpeptidase 110 U/L (5-36); Uric Acid 8.2 mg/dL (2.5-8.0)
[2018-05-19] MEDS ORDERED: PHENYLEPHRINE 10 MG/ML VIAL ONE (09:40)
[2018-05-19] MEDS ORDERED: LIDOCAINE HCL/PF 100 MG/5 ML SYRINGE IV ONE (09:40)
[2018-05-19] MEDS ORDERED: ONDANSETRON 4 MG/2 ML VIAL ONE (09:40)
[2018-05-19] MEDS ORDERED: KETAMINE 10 MG/ML ML ONE (09:40)
[2018-05-19] MEDS ORDERED: PROPOFOL 200 MG/20 ML VIAL IV ONE (09:40)
[2018-05-19] MEDS ORDERED: fentaNYL 100 MCG/2 ML VIAL IV ONE (09:40)
[2018-05-19] MEDS ORDERED: DEXAMETHASONE 10 MG/ML VIAL ONE (09:40)
[2018-05-19] MEDS ORDERED: GLYCOPYRROLATE 0.2 MG/ML VIAL IV ONE (09:40)
[2018-05-19] MEDS ORDERED: MIDAZOLAM 5 MG/5 ML VIAL ONE (09:40)
[2018-05-19] MEDS ORDERED: ceFAZolin 1 GM VIAL ONE (09:40)
[2018-05-19] MEDS ORDERED: ceFAZolin 1 GM VIAL IV SCH (09:45)
--- NOTE | 2018-05-19 10:44 | Brief Operative Note ---
Date of procedure: 05/19/18 Pre-op diagnosis: Left comminuted intra-articular distal radius Colles' fracture, closed Post-op diagnosis: same Procedure: Open treatment internal fixation Left comminuted intra-articular distal radius Colles' fracture more than 3 fragments Grafts/Implants: Yes ([employer]) Anesthesia: GLMA Findings: osteopenia Complications: none Surgeon: Candelario Reed Estimated blood loss (cc): 30 Specimens Removed/Pathology: none sent Condition: stable Disposition: PACU
[2018-05-19] MEDS ORDERED: BUPIVACAINE W/EPI 0.5% 50 ML VIAL IJ ONE (10:46)
--- NOTE | 2018-05-19 10:48 | Discharge Summary ---
Ortho Discharge Plan - General - Patient Instructions Diet: Regular Diet Activity: non weight bearing (Left Upper Extremity) Dressing Care: May shower in 2 days (then dry dressing change daily) - Follow Up Plan Follow Up Appointments: Segun Galvan PA-C [Physician Court Operations Clerk] - Disposition: Home, Self-Care Prognosis: Fair Rehab Potential: Fair
[2018-05-19] MEDS ORDERED: LACTATED RINGERS 250 ML IV PRN (10:58)
[2018-05-19] MEDS ORDERED: ACETAMINOPHEN 1,000 MG/100 ML BOTTLE IV ONE (10:58)
[2018-05-19] MEDS ORDERED: FLUMAZENIL 0.1 MG/ML ML IV PRN (10:58)
[2018-05-19] MEDS ORDERED: fentaNYL 100 MCG/2 ML VIAL IV PRN (10:58)
[2018-05-19] MEDS ORDERED: MEPERIDINE 25 MG/ML SYRINGE IV PRN (10:58)
[2018-05-19] MEDS ORDERED: KETOROLAC 30 MG/ML VIAL IV PRN (10:58)
[2018-05-19] MEDS ORDERED: IPRATROPIUM/ALBUTEROL 3 ML AMPUL.NEB NEB PRN (10:58)
[2018-05-19] MEDS ORDERED: NALOXONE HCL 0.4 MG/ML VIAL IV PRN (10:58)
[2018-05-19] MEDS ORDERED: BENZOCAINE/MENTHOL 1 LOZENGE PO PRN (10:58)
[2018-05-19] MEDS ORDERED: METHOCARBAMOL 1,000 MG/10 ML VIAL IV PRN (10:58)
[2018-05-19] MEDS ORDERED: LACTATED RINGERS 1,000 ML IV SCH (11:00)
[2018-05-19] MEDS: HEPARIN 5,000 UNIT/ML VIAL SQ SCH (11:48)
--- NOTE | 2018-05-19 11:51 | XRay Report ---
HISTORY: Postop repair of fractured radius FINDINGS: There is good alignment following open reduction internal fixation of the transverse fracture of distal radius. There is no angulation or deformity. There is an ununited fracture of the ulnar styloid process. Carpal bones are normal. IMPRESSION: Good alignment following surgical repair of a Colles' fracture Interpreted and Authenticated by: Adonay Granados 05/19/18
--- NOTE | 2018-05-19 11:56 | Discharge Summary ---
Medical - DS: Prov Patient information: Note initiated : 05/19/18 at 11:51 am Service Date, if different from initiated Date: [] Patient: Oksana Salcedo 52 y/o F admitted on 05/18/18 for Hypokalemia. Chief Complaint: [] Date of admission: 05/18/18 15:45 Discharge date: 05/19/18 Primary care physician: Elsie Hdz Consults: 05/18/18 16:50 Consult to Physician [CONS] Routine Comment: Consulting Provider: Candelario Reed Reason For Exam: Physician to Consult Discharging clinician: [facility] - DS: Meds - Discharge Medications Prescriptions: Hydrocodone/APAP 7.5/325Mg [[place] 7.5-325Mg] 1 - 2 tab PO Q4HP PRN #30 tab PRN Reason: Pain Magnesium Oxide [Magnesium] 400 mg PO BID #60 tablet Potassium Chloride [K-Tab ER] 10 meq PO BID #90 tab Active and Home Medications: Home Medications Bacillus coagulans 1 tab PO QDAY 10/27/17 [History Confirmed 05/18/18 Last Taken Unknown] linaclotide 145 mcg capsule 145 mcg PO DAILY cap 10/27/17 [History Confirmed 05/18/18 Last Taken Unknown] metoclopramide 10 mg tablet 10 mg PO BID tab 10/27/17 [History Confirmed 05/18/18 Last Taken Unknown] naproxen sodium 1 tablet PO PRN PRN 10/27/17 [History Confirmed 05/18/18 Last Taken Unknown] omeprazole 40 mg capsule,delayed release 40 mg PO DAILY cap 10/27/17 [History Confirmed 05/18/18 Last Taken Unknown] ondansetron 8 mg disintegrating tablet 8 mg PO .q8 PRN tab 10/27/17 [History Confirmed 05/18/18 Last Taken Unknown] quetiapine 100 mg tablet 100 mg PO QHS tab 10/27/17 [History Confirmed 05/18/18 Last Taken Unknown] triamcinolone acetonide 0.1 % topical cream 1 applic TOPICAL BID 10/27/17 [History Confirmed 05/18/18 Last Taken Unknown] potassium chloride ER 10 mEq tablet,extended release 10 meq PO TID #21 tab 12/01/17 [Rx Confirmed 05/18/18 Last Taken Unknown] HYDROcodone/ACETAMINOPHEN [[place] 7.5-325 Tablet] 1 each PO Q8 PRN #15 tab 12/30/17 [Rx Confirmed 05/18/18 Last Taken 05/18/18 08:00] cholecalciferol (vitamin D3) 50,000 unit capsule 50,000 unit PO QWEEK #12 cap 02/09/18 [Rx Confirmed 05/18/18 Last Taken Unknown] Hydrocodone/APAP 7.5/325Mg [[place] 7.5-325Mg] 1 - 2 tab PO Q4HP PRN #30 tab 05/19/18 [Rx Last Taken Unknown] Medical - DS: Hosp Hospital course: Ms. Salcedo is a 52 year old F with h/o intermittent intractable nausea vomiting, followed by GI at [facility], she also has history of chronic hypokalemia presents to the hospital today for an orthopedic surgery. The patient had presented to [facility] emergency room yesterday after a fall and pain in the left wrist. The patient noted that she has not been able to eat or drink much for the last few days because of her nausea and vomiting. Only sipping some Gatorade. She was dizzy and fell down approximately 3 days ago and had significant pain in her left wrist. She presented with the symptoms at the emergency room yesterday. Her left wrist had a fracture which was reduced in the ER and she was advised to follow-up with orthopedics. Her labs showed that she had a potassium of 2.5 she was given some IV potassium and oral replacement and advised to follow-up as an outpatient This morning I believe her potassium was 2.8 on the chemistry, the patient presented for surgery at this hospital today and a point of care potassium was noted to be 2.3. The patient was therefore asked to be admitted by the hospitalist service for management of severe hypokalemia and the surgery was postponed The patient has been followed up for her GI symptoms by [facility], she has had a gastric emptying study done by Dr. Alcala I believe July 2017 which shows gastroparesis possible partial gastric outlet obstruction, I do not have an official copy of the endoscopy report however I do see that she has had an EGD done last year, I do have access to the pathology report which shows chronic gastritis Patient does have some behavioral issues, she is also had cannabinoids positive in the urine in the past 3/8 Pt seen examined no acute overnight events, pt had low K and low MG overnight, replaced aggresively, advised to start oral replacements again along with mag replacements s/p wrist fracture, stable for discharge Advised to follow up with her GI doctor for continued follow up on nausea/vomiting, she is able to tolerate po diet well Discharge diagnosis: Hypokalemia - Time Spent with Patient Total time spent providing and/or coordinating discharge services: Greater than 30 minutes Medical - DS: Exam - Constitutional Vitals: Vital Signs Temp Pulse Resp BP BP Pulse Ox 05/19/18 11:36 97.1 F 16 125/92 96 05/19/18 11:23 98.0 F 87 13 125/74 96 05/19/18 11:15 97.8 F 85 14 112/79 96 05/19/18 11:00 97.8 F 85 12 94/56 94 05/19/18 10:55 88 8 L 94/51 94 05/19/18 10:45 87 8 L 93/50 94 05/19/18 10:43 97.8 F 92 H 14 93/51 96 05/19/18 06:27 97.6 F 18 121/78 96 05/19/18 03:49 95.9 F L 18 141/100 95 05/19/18 00:00 97.5 F 18 145/92 95 05/18/18 20:00 97.3 F 18 142/96 95 05/18/18 16:00 98.3 F 18 141/94 100 05/18/18 15:57 98.3 F 18 141/94 100 Intake and Output 05/18/18 05/19/18 05/19/18 21:59 05:59 13:59 Intake Total 1017.0909 2620 Output Total 41 275 Balance 976.0909 -275 2620 Intake: IV 617.0909 1620 Dextrose 5%-Lactated Ringers 1, 1000 000 ml @ 125 mls/hr IV .Q8H [facility] Rx#:[id number] Oral 400 IV - Manual Only 1000 Output: Void Amount 40 275 # of times incontinent of urine 1 Other: Meal Dinner Percent of Meal Consumed 100% Feeding Ability Independent Urine Appearance Clear Clear Urine Color Tea Colored Tea Colored Urine Odor Strong Weight 142 lb Additional comments: Constitutional; Afebrile, cooperative, alert, not in distress. Respiratory system: Air Entry equal on both sides, No crackles or wheezing, no rhonchi. CVS- Rate rhythm regular, S1,S2 heard, no gallop, no rub. Abdomen- Soft nontender abdomen, no organomegaly, no tenderness, no guarding or rigidity, [employer]PERATOR- AOOx3, moving all extremities, no gross focal deficit noted. Medical - DS: Data Labs on day of discharge: Labs from last 24 hours 05/19/18 05/19/18 05/18/18 08:02 03:30 21:17 WBC RBC Hgb Hct MCV MCH MCHC RDW Plt Count MPV Gran % Lymph % (Auto) Centre % (Auto) Eos % (Auto) Baso % (Auto) Gran # Lymph # (Auto) Centre # (Auto) Eos # (Auto) Baso # (Auto) PT 14.9 H INR 1.2 H Sodium 133 134 Potassium 4.2 3.9 Chloride 93 L 94 L Carbon Dioxide 31 H 31 H Anion Gap 9.0 9.0 BUN 10 11 Creatinine 0.9 1.1 GFR Calculation 74 58 Glucose 85 128 H Uric Acid 8.2 H Calcium 7.7 L 7.6 L Phosphorus 2.2 L Magnesium 2.2 Total Bilirubin 0.6 Direct Bilirubin 0.2 GGT 110 H AST 59 H ALT 27 Alkaline Phosphatase 122 H Lactate Dehydrogenase 323 H Total Protein 4.8 L Albumin 2.6 L Globulin 2.2 Albumin/Globulin Ratio 1.2 Triglycerides 162 H Urine Color Urine Appearance Urine pH Ur Specific [place] Urine Protein Urine Glucose (UA) Urine Ketones Urine Occult Blood Urine Nitrate Urine Bilirubin Urine Urobilinogen Ur Leukocyte Esterase Urine RBC Urine WBC Ur Squamous Epith Cells Urine Bacteria Hyaline Casts Urine Mucus Ur Culture Indicated? Ur Random Creatinine Ur Random Potassium Urine Opiates Screen Ur Opiates Confirm Ur Oxycodone Screen Urine Methadone Screen Ur Methadone Confirm Ur Barbiturates Screen Ur Barbiturate Confirm Ur Phencyclidine Scrn Urine PCP Confirm Ur Amphetamines Screen U Amphetamines Confirm U Benzodiazepines Scrn U Benzodiazepine Confm Urine Cocaine Screen Urine Cocaine Confirm U Cannabinoids Confirm U Marijuana (THC) Screen 05/18/18 05/18/18 05/18/18 18:16 18:15 18:15 WBC RBC Hgb Hct MCV MCH MCHC RDW Plt Count MPV Gran % Lymph % (Auto) Centre % (Auto) Eos % (Auto) Baso % (Auto) Gran # Lymph # (Auto) Centre # (Auto) Eos # (Auto) Baso # (Auto) PT INR Sodium Potassium Chloride Carbon Dioxide Anion Gap BUN Creatinine GFR Calculation Glucose Uric Acid Calcium Phosphorus Magnesium Total Bilirubin Direct Bilirubin GGT AST ALT Alkaline Phosphatase Lactate Dehydrogenase Total Protein Albumin Globulin Albumin/Globulin Ratio Triglycerides Urine Color Yellow Urine Appearance Clear Urine pH 5.0 Ur Specific [place] 1.023 Urine Protein Neg Urine Glucose (UA) Negative Urine Ketones 20 A Urine Occult Blood Neg Urine Nitrate Neg Urine Bilirubin Neg Urine Urobilinogen 4.0 A Ur Leukocyte Esterase Neg Urine RBC 1 Urine WBC 9 H Ur Squamous Epith Cells 3 Urine Bacteria 0 Hyaline Casts 25 H Urine Mucus Mod Ur Culture Indicated? No Ur Random Creatinine 269.2 Ur Random Potassium Urine Opiates Screen Suspect positive A Ur Opiates Confirm Not Reportable Ur Oxycodone Screen None detected Urine Methadone Screen None detected Ur Methadone Confirm Not Reportable Ur Barbiturates Screen None detected Ur Barbiturate Confirm Not Reportable Ur Phencyclidine Scrn None detected Urine PCP Confirm Not Reportable Ur Amphetamines Screen None detected U Amphetamines Confirm Not Reportable U Benzodiazepines Scrn None detected U Benzodiazepine Confm Not Reportable Urine Cocaine Screen None detected Urine Cocaine Confirm Not Reportable U Cannabinoids Confirm Not Reportable U Marijuana (THC) Screen None detected 05/18/18 05/18/18 05/18/18 18:15 16:08 16:08 WBC 6.1 RBC 4.19 Hgb 12.1 Hct 36.9 MCV 88.1 MCH 29.0 MCHC 32.9 RDW 20.2 H Plt Count 210 MPV 8.7 Gran % 53.4 Lymph % (Auto) 35.6 Centre % (Auto) 7.1 Eos % (Auto) 3.2 Baso % (Auto) 0.7 Gran # 3.2 Lymph # (Auto) 2.2 Centre # (Auto) 0.4 Eos # (Auto) 0.2 Baso # (Auto) 0 PT INR Sodium 137 Potassium 2.4 L* Chloride 90 L Carbon Dioxide 33 H Anion Gap 14.0 BUN 12 Creatinine 1.2 H GFR Calculation 52 Glucose 52 L Uric Acid 9.9 H Calcium 7.7 L Phosphorus 3.1 Magnesium 1.0 L Total Bilirubin 0.9 Direct Bilirubin 0.2 GGT 122 H AST 71 H ALT 31 Alkaline Phosphatase 134 H Lactate Dehydrogenase 342 H Total Protein 5.3 L Albumin 2.7 L Globulin 2.6 Albumin/Globulin Ratio 1.0 Triglycerides 128 Urine Color Urine Appearance Urine pH Ur Specific [place] Urine Protein Urine Glucose (UA) Urine Ketones Urine Occult Blood Urine Nitrate Urine Bilirubin Urine Urobilinogen Ur Leukocyte Esterase Urine RBC Urine WBC Ur Squamous Epith Cells Urine Bacteria Hyaline Casts Urine Mucus Ur Culture Indicated? Ur Random Creatinine Ur Random Potassium 53.7 Urine Opiates Screen Ur Opiates Confirm Ur Oxycodone Screen Urine Methadone Screen Ur Methadone Confirm Ur Barbiturates Screen Ur Barbiturate Confirm Ur Phencyclidine Scrn Urine PCP Confirm Ur Amphetamines Screen U Amphetamines Confirm U Benzodiazepines Scrn U Benzodiazepine Confm Urine Cocaine Screen Urine Cocaine Confirm U Cannabinoids Confirm U Marijuana (THC) Screen Medical - DS: A/P - Patient/Caregiver Discharge Instructions Activity: as per physical therapy Diet: Regular Diet Additional Instructions: Please take potassium and magnesium supplements as prescribed Follow up with Ortho as scheduled Follow up with PCP in 1 week, make sure your PCP checks your potassium and magnesium levels at that time. Your PCP will make further adjustments to yoru medications as needed Eat a diet rich in Potassium Follow up with your GI team for continued follow up on your vomiting issues. Prescriptions: Hydrocodone/APAP 7.5/325Mg [[place] 7.5-325Mg] 1 - 2 tab PO Q4HP PRN #30 tab PRN Reason: Pain - Follow up Plan Follow up with: Segun Galvan PA-C [Physician [employer]raw [employer]er] - Elsie Hdz ARNP [Primary Care Provider] - Disposition: Home, Self-Care Prognosis: Fair Rehab Potential: Fair I certify that the patient requires SNF services: No Overall status at discharge: patient is progressing back to baseline Medical - DS: Qual - VTE Deep Vein Thrombosis/Pulmonary Embolism Present on Admission: No
--- NOTE | 2018-05-19 12:01 | Operative Note ---
DATE OF OPERATION: 05/19/2018 PREOPERATIVE DIAGNOSIS: Left comminuted intra-articular Colles type distal radius fracture, more than three fragments. POSTOPERATIVE DIAGNOSIS: Left comminuted intra-articular Colles least type distal radius fracture, more than three fragments. PROCEDURE PERFORMED: Open treatment and internal fixation of left comminuted distal radius Colles fracture involving more than three fragments using a [employer] plate. SURGEON: Candelario Reed MD CLOTHING MAN: None. ANESTHESIA: General. DRAINS: None. COMPLICATIONS: None. BLOOD LOSS: 10 mL POSTOPERATIVE CONDITION: Stable. INDICATIONS FOR SURGERY: A 52-year-old female who fell several days prior, injuring her left wrist. X-ray showed a severely comminuted intra-articular distal radius fracture with posterior angulation and displacement. FINDINGS AT SURGERY: Showed osteoporosis with severe fracture and stability. Post-fixation showed satisfactory fracture reduction and hardware position. PROCEDURE IN DETAIL: The patient had been seen preoperatively. Informed consent had been obtained after discussion of risks and benefits of surgery. Risks including, but not limited to, bleeding; infection; injury to nerves, blood vessels other surrounding structures; anesthetic risks; nonunion or malunion of fracture; failure of hardware fixation; possibility of needing further surgery, stiffness, pain, numbness, tingling. She understood and wished to proceed. Correct operative site was marked. The patient was taken to the operating room. General anesthesia induced. The left upper extremity was carefully prepped and draped in normal sterile fashion and a timeout was performed verifying patient name, operative site, and plan. Esmarch was used to exsanguinate the extremity and tourniquet was inflated to 250 mmHg. A FCR based incision was done on the volar side with a scalpel through skin and subcutaneous tissue. Careful sharp dissection was taken down in layers until the FCR tendon was exposed. This was retracted and the floor of the tendon sheath was incised sharply. We then bluntly dissected medial to the FPL and then down on to the pronator quadratus. We then released this with Bovie along the radial border and AO elevator used to lift this off subperiosteally and expose the fracture site. Fracture reduction maneuver was performed and then a 0.062 was placed from the radial styloid across the fracture. We placed a second one to get good stability. We then chose a 4-hole standard DVR left [employer] plate. This was positioned and adjusted with fluoroscopy until we liked the position and then K-wires used to hold in position. We drilled and placed a 3.5 shaft screw in the slot. We rechecked fluoro and liking our position, we went ahead and placed a second shaft screw distal to this, 3.5 nonlocking. We then started drilling and filling our distal cluster pegs with a 2.0 drill. We placed all 7 distal locking smooth pegs. Fluoroscopy was used to verify peg position and we were careful not to make these too long. We then went to the hole just proximal to the slotted hole in the shaft and drilled and placed a final 3.5 nonlocking screw. We left the proximal hole empty to avoid a stress riser at the end of the plate. We took final fluoro images and then saved and printed these. We irrigated copiously with saline. Pronator quadratus was closed over the plate with 0 Vicryl as much as possible; 3-0 Monocryl was used for subcutaneous and 4-0 nylon running subq and a running mattress stitch was used for skin. Local anesthetic was injected. Sterile dressing was applied. Tourniquet was released and a carpal tunnel brace was placed. The patient was then awakened, extubated, and transferred to recovery in stable condition. BJB:christopher Job ID: [id number] Doc ID: [id number] Candelario Reed MD
== END 2018-05-19 13:50 | disposition home or self-care (01) ==
LOC: ICU
PROVIDERS: ADMIT Internal Medicine; ATTEND Internal Medicine

== ENCOUNTER 2019-01-04 19:40 | Inpatient (IN) ==
[2019-01-04] MEDS ORDERED: 0.9 % SODIUM CHLORIDE 2,000 ML IV ONE (20:01)
[2019-01-04] MEDS ORDERED: ONDANSETRON 4 MG/2 ML VIAL IV ONE (20:01)
--- NOTE | 2019-01-04 20:06 | Emergency Department Note ---
Weakness HPI - General Chief complaint: Weakness Stated complaint: body cramps, n/v, dizzy, syncope Time Seen by Provider: 01/04/19 19:51 Source: patient, other () Mode of arrival: ambulatory Limitations: no limitations - History of Present Illness HPI Narrative: 53-year-old female with complaints of multiple syncopal episodes generalized weakness and pain over the last week. She states everything hurts. I asked her several times to be more specific about where exactly it hurt and how it got hurt but she is unable to give me more meaningful information. Her ex- and neighbor notes that she has had multiple episodes of syncope with injury. This morning he found her on the floor as she had fallen out of bed. She thinks she needs fluids and electrolytes. She is having significant nausea and vomiting and cannot hold anything down. She has not taken any medicines for 3 to 4 months and has not been eating well either - Related Data Home Medications Medication Instructions Recorded Confirmed Bacillus coagulans 1 tab PO QDAY 10/27/17 05/18/18 linaclotide 145 mcg capsule 145 mcg PO DAILY cap 10/27/17 05/18/18 metoclopramide HCl 10 mg tablet 10 mg PO BID tab 10/27/17 05/18/18 naproxen sodium 1 tablet PO PRN PRN 10/27/17 05/18/18 omeprazole 40 mg capsule,delayed 40 mg PO DAILY cap 10/27/17 05/18/18 release ondansetron 8 mg disintegrating 8 mg PO .q8 PRN tab 10/27/17 05/18/18 tablet quetiapine 100 mg tablet 100 mg PO QHS tab 10/27/17 05/18/18 triamcinolone acetonide 0.1 % 1 applic TOPICAL BID 10/27/17 05/18/18 topical cream Previous Rx's Medication Instructions Recorded HYDROcodone/ACETAMINOPHEN [[place] 1 each PO Q8 PRN #15 tab 12/30/17 7.5-325 Tablet] cholecalciferol (vitamin D3) 50,000 unit PO QWEEK #12 cap 02/09/18 50,000 unit capsule Hydrocodone/APAP 7.5/325Mg [[place] 1 - 2 tab PO Q4HP PRN #30 tab 05/19/18 7.5-325Mg] Magnesium Oxide [Magnesium] 400 mg PO BID #60 tab 05/19/18 Potassium Chloride [K-Tab ER] 10 meq PO BID #90 tab 05/19/18 Allergies Allergy/AdvReac Type Severity Reaction Status Date / Time prochlorperazine Allergy Severe Anaphylaxis Verified 01/04/19 20:21 Review of Systems All systems ED: reviewed and negative except as stated. Past Medical History - Past Medical History Attestation: Yes: The following information was validated with the patient. [facility] Narrative: Medical History (Last Reviewed 01/04/18 @ 09:50 by Florinda Rush CMA) Low vitamin D level (Acute) Osteomalacia (Acute) Myofascial pain (Acute) CLIVE positive (Acute) Alcohol abuse (Chronic ~04/13/17) Gastroparesis (Chronic) Anxiety (Chronic) Bulimia (Chronic) Heartburn (Chronic) Gastro-esophageal reflux disease with esophagitis (Chronic) Esophageal dysphagia (Chronic) Nondiabetic gastroparesis (Chronic) Mental disorder (Chronic) Positive depression screening (Chronic) Problem behavior (Chronic ~04/13/17) Burping (Chronic ~06/23/17) Nausea & vomiting (Chronic) Irritable bowel syndrome (Chronic ~07/29/17) Hiatal hernia (Chronic ~07/06/17) Insomnia (Chronic ~04/14/17) Post-traumatic stress disorder, chronic (Chronic ~04/14/17) Obesity (Chronic ~04/14/17) Skin eruption (Chronic) Epigastric pain (Chronic) Past Surgical History (Last Reviewed 01/04/18 @ 09:50 by Florinda Rush CMA) H/O oral surgery (Chronic) History of 2 sections (Chronic) History of esophagogastroduodenoscopy (EGD) (Chronic) Medical history: Reports: kidney stones, migraine, seizures, other (eating disorder) Psychiatric history: Reports: anxiety, depression, panic disorder, PTSD, previous psychiatric hospitalization [facility] [facility] history: Reports: non-contributory Surgical history ED: Reports: other - Social History smoking status: Former smoker Alcohol use: Reports: Daily Drug use: Reports: marijuana Physical Exam Normocephalic atraumatic. She is wearing sunglasses inside-conjunctive are clear sclera white nonicteric. Pupils are equal reactive to light. No nasal discharge or congestion. Oropharynx with dry buccal mucosa. Posterior pharynx is clear. She is edentulous and wears dentures. neck is supple without lymphadenopathy or thyromegaly. Heart is regular rate and rhythm no murmur appreciated. Lungs are basically clear to auscultation bilaterally without wh eezes rales rhonchi or soft nontender nondistended. She is moving her arms normally without difficulty. No pedal edema. She is alert and able to answer questions. However she is somewhat uncooperative for the interview is difficult to sort out what exactly going on. Limitations: no limitations Course Vital Signs Temperature 97.3 F 01/04/19 19:43 Pulse Rate 144 H 01/04/19 19:43 Respiratory Rate 24 H 01/04/19 19:43 Blood Pressure 91/65 01/04/19 19:43 Pulse Oximetry (%) 96 01/04/19 19:43 Temperature 97.3 F 01/04/19 19:43 Pulse Rate 86 01/05/19 00:01 Respiratory Rate 16 01/05/19 00:01 Blood Pressure 105/80 01/05/19 00:01 Pulse Oximetry (%) 97 01/05/19 00:01 Weakness - Lab Data Lab results reviewed: Yes I reviewed the patient's lab results. Result diagrams: 01/04/19 20:00 01/04/19 20:00 Lab Results 01/04/19 01/04/19 01/04/19 Range/Units 20:00 20:00 20:00 WBC 6.5 (4.5-11.0) K/mcL RBC 4.38 (4.00-5.20) M/mcL Hgb 12.6 (12.0-15.0) g/dL Hct 37.7 (36.0-48.0) % POC Hct 33.0 L (36.0-48.0) % MCV 85.9 (80.0-100.0) fL MCH 28.7 (26.0-34.0) pg MCHC 33.4 (31.0-36.0) g/dL RDW 21.2 H (11.5-14.5) % Plt Count 252 (140-440) K/mcL MPV 8.2 (7.4-10.4) fL Gran % 64.7 (38.0-78.0) % Lymph % (Auto) 31.5 (15.5-49.0) % Granite % (Auto) 2.2 (1.0-12.0) % Eos % (Auto) 0.8 (0.0-7.0) % Baso % (Auto) 0.8 (0.0-2.0) % Gran # 4.2 (1.8-8.0) K/mcL Lymph # (Auto) 2.0 (1.5-4.8) K/mcL Granite # (Auto) 0.1 (0.1-0.9) K/mcL Eos # (Auto) 0.1 (0.0-0.7) K/mcL Baso # (Auto) 0.1 (0.0-0.3) K/mcL PT 15.4 H (11.9-14.5) sec INR 1.2 H (0.9-1.1) D-Dimer 0.50 H (0.00-0.40) ug/ml VBG Lactic Acid (0.5-2.0) mmol/L POC Sodium 127 L (133-145) mmol/L Sodium 133 (133-145) mmol/L POC Potassium < 2.0 L* (3.3-5.1) mmol/L Potassium 2.0 L* (3.3-5.1) mmol/L POC Chloride 66 L (96-108) mmol/L Chloride 72 L (96-108) mmol/L Carbon Dioxide 41 H* (22-30) mmol/L POC Total CO2 50 H* (22-30) mmol/L Anion Gap 20.0 H (8-16) POC BUN 7 (6-20) mg/dl BUN 9 (6-20) mg/dl Creatinine 0.8 (0.6-1.1) mg/dl POC Creatinine 0.5 L (0.6-1.1) mg/dl GFR Calculation 84 Glucose 86 (70-105) mg/dL POC Glucose 98 (70-105) mg/dL Calcium 8.2 L (8.6-10.4) mg/dl POC WB Ioniz Calcium 0.86 L (1.16-1.32) mmol/L Magnesium 1.0 L (1.6-2.5) mg/dL Total Bilirubin 1.7 H (0.0-1.0) mg/dL AST 102 H (0-37) U/l ALT 43 H (0-40) U/l Alkaline Phosphatase 160 H (39-117) U/L Ammonia (11-51) umol/L Troponin T (0-0.03) ng/ml NT-Pro-B Natriuret Pep 700.8 H (0-125) pg/ml Total Protein 5.5 L (5.9-8.4) gm/dL Albumin 2.9 L (3.2-5.2) gm/dL Globulin 2.6 (2.2-3.7) gm/dL Albumin/Globulin Ratio 1.1 (1.0-2.3) Procalcitonin (<0.10) ng/mL Ethyl Alcohol (<0.010) gm/dl 01/04/19 01/04/19 01/04/19 Range/Units 20:00 20:00 20:08 WBC (4.5-11.0) K/mcL RBC (4.00-5.20) M/mcL Hgb (12.0-15.0) g/dL Hct (36.0-48.0) % POC Hct (36.0-48.0) % MCV (80.0-100.0) fL MCH (26.0-34.0) pg MCHC (31.0-36.0) g/dL RDW (11.5-14.5) % Plt Count (140-440) K/mcL MPV (7.4-10.4) fL Gran % (38.0-78.0) % Lymph % (Auto) (15.5-49.0) % Granite % (Auto) (1.0-12.0) % Eos % (Auto) (0.0-7.0) % Baso % (Auto) (0.0-2.0) % Gran # (1.8-8.0) K/mcL Lymph # (Auto) (1.5-4.8) K/mcL Granite # (Auto) (0.1-0.9) K/mcL Eos # (Auto) (0.0-0.7) K/mcL Baso # (Auto) (0.0-0.3) K/mcL PT (11.9-14.5) sec INR (0.9-1.1) D-Dimer (0.00-0.40) ug/ml VBG Lactic Acid 5.9 H* (0.5-2.0) mmol/L POC Sodium (133-145) mmol/L Sodium (133-145) mmol/L POC Potassium (3.3-5.1) mmol/L Potassium (3.3-5.1) mmol/L POC Chloride (96-108) mmol/L Chloride (96-108) mmol/L Carbon Dioxide (22-30) mmol/L POC Total CO2 (22-30) mmol/L Anion Gap (8-16) POC BUN (6-20) mg/dl BUN (6-20) mg/dl Creatinine (0.6-1.1) mg/dl POC Creatinine (0.6-1.1) mg/dl GFR Calculation Glucose (70-105) mg/dL POC Glucose (70-105) mg/dL Calcium (8.6-10.4) mg/dl POC WB Ioniz Calcium (1.16-1.32) mmol/L Magnesium (1.6-2.5) mg/dL Total Bilirubin (0.0-1.0) mg/dL AST (0-37) U/l ALT (0-40) U/l Alkaline Phosphatase (39-117) U/L Ammonia (11-51) umol/L Troponin T < 0.01 (0-0.03) ng/ml NT-Pro-B Natriuret Pep (0-125) pg/ml Total Protein (5.9-8.4) gm/dL Albumin (3.2-5.2) gm/dL Globulin (2.2-3.7) gm/dL Albumin/Globulin Ratio (1.0-2.3) Procalcitonin (<0.10) ng/mL Ethyl Alcohol < 0.010 (<0.010) gm/dl 01/04/19 01/04/19 01/04/19 Range/Units 20:08 22:37 22:37 WBC (4.5-11.0) K/mcL RBC (4.00-5.20) M/mcL Hgb (12.0-15.0) g/dL Hct (36.0-48.0) % POC Hct (36.0-48.0) % MCV (80.0-100.0) fL MCH (26.0-34.0) pg MCHC (31.0-36.0) g/dL RDW (11.5-14.5) % Plt Count (140-440) K/mcL MPV (7.4-10.4) fL Gran % (38.0-78.0) % Lymph % (Auto) (15.5-49.0) % Granite % (Auto) (1.0-12.0) % Eos % (Auto) (0.0-7.0) % Baso % (Auto) (0.0-2.0) % Gran # (1.8-8.0) K/mcL Lymph # (Auto) (1.5-4.8) K/mcL Granite # (Auto) (0.1-0.9) K/mcL Eos # (Auto) (0.0-0.7) K/mcL Baso # (Auto) (0.0-0.3) K/mcL PT (11.9-14.5) sec INR (0.9-1.1) D-Dimer (0.00-0.40) ug/ml VBG Lactic Acid 2.3 H (0.5-2.0) mmol/L POC Sodium (133-145) mmol/L Sodium (133-145) mmol/L POC Potassium (3.3-5.1) mmol/L Potassium (3.3-5.1) mmol/L POC Chloride (96-108) mmol/L Chloride (96-108) mmol/L Carbon Dioxide (22-30) mmol/L POC Total CO2 (22-30) mmol/L Anion Gap (8-16) POC BUN (6-20) mg/dl BUN (6-20) mg/dl Creatinine (0.6-1.1) mg/dl POC Creatinine (0.6-1.1) mg/dl GFR Calculation Glucose (70-105) mg/dL POC Glucose (70-105) mg/dL Calcium (8.6-10.4) mg/dl POC WB Ioniz Calcium (1.16-1.32) mmol/L Magnesium (1.6-2.5) mg/dL Total Bilirubin (0.0-1.0) mg/dL AST (0-37) U/l ALT (0-40) U/l Alkaline Phosphatase (39-117) U/L Ammonia 30 (11-51) umol/L Troponin T (0-0.03) ng/ml NT-Pro-B Natriuret Pep (0-125) pg/ml Total Protein (5.9-8.4) gm/dL Albumin (3.2-5.2) gm/dL Globulin (2.2-3.7) gm/dL Albumin/Globulin Ratio (1.0-2.3) Procalcitonin < 0.05 (<0.10) ng/mL Ethyl Alcohol (<0.010) gm/dl ABG shows pH of 7.67 PCO2 46 PO2 of 48 - Radiology Data Radiology results reviewed: Yes I reviewed the patient's radiology results. Chest x-ray showed no acute findings. CT scan abdomen pelvis is pending at the time of admission - EKG Data EKG attestation: Yes I reviewed and interpreted this EKG., Yes This EKG will be read by admissions officer EKG results narrative: EKG shows sinus tachycardia with a rate of 114. There is ST depression in leads V2 through V6 although it is borderline and likely does not meet criteria. There is repolarization with that. Disposition Pt seen by CLINICAL DATA ABSTRACTOR/PA only: No Clinical Impression: Hypokalemia, Metabolic alkalosis, Hypocalcemia, Lactic acid acidosis, Hypomagnesemia Summary: She is asking for pain medicine she cannot really tell me where she is hurting. So I am reluctant to do that especially if there is some confusion or altered mental status going on here. We will start IV fluids and check laboratory. EKG is unrevealing. Get chest x-ray And check orthostatics Low blood pressures are concerning for possible sepsis although I do not have a clear source for infection nor is she febrile. However she is tachycardic and tachypneic so we will get blood cultures and start Zosyn Started K rider and calcium chloride for hyperkalemia and hypocalcemia. Briefly discussed with Dr. Coy, housing officer- Recommend we do fluid resuscitation and electrolyte replacement. Oxygen saturations dropped to 75% on room air so we will put on oxygen. Blood gases show significant metabolic alkalosis. Chest x-ray ordered. CT abdomen pelvis ordered. Continued fluid resuscitation Chest x-ray is unrevealing. CT read out is pending at the time of admission Started mag rider for hypomagnesemia. She was working on her third bag of IV fluid when I discussed findings with Dr. Mittal, hospitalist. He agreed to accept the patient for further care and evaluation in the hospital. He notes that the patient has done this before and has had significant electrolyte abnormalities like this in the past from an eating disorder Disposition: Xfer As Inpt ([facility]) Condition: Fair
[2019-01-04] MEDS ORDERED: PIPERACILLIN SODIUM/TAZOBACTAM 3.375 GM in DEXTROSE 5% IN WATER 50 ML IV ONE (20:11)
[2019-01-04] MEDS ORDERED: POTASSIUM CHLORIDE 40 MEQ in DEXTROSE 5% IN WATER 500 ML IV ONE (20:45)
[2019-01-04 20:46] LABS: POC Blood Urea Nitrogen 7 mg/dl (6-20); POC CO2 50 mmol/L (22-30); POC Calcium, Ionized 0.86 mmol/L (1.16-1.32); POC Chloride 66 mmol/L (96-108); POC Creatinine 0.5 mg/dl (0.6-1.1); POC Glucose, Random 98 mg/dL (70-105); POC Potassium < 2.0 mmol/L (3.3-5.1); POC Sodium 127 mmol/L (133-145)
[2019-01-04] MEDS ORDERED: POTASSIUM CHLORIDE 20 MEQ/10 ML VIAL IV ONE (20:54)
[2019-01-04] MEDS ORDERED: CALCIUM CHLORIDE 1,000 MG/10 ML SYRINGE IV ONE (20:55)
[2019-01-04] MEDS ORDERED: LORazepam 2 MG/ML VIAL IV ONE (21:28)
[2019-01-04 22:13] LABS: Basophils # (Auto) 0.1 K/mcL (0.0-0.3); Basophils % (Auto) 0.8 % (0.0-2.0); Eosinophils # (Auto) 0.1 K/mcL (0.0-0.7); Eosinophils % (Auto) 0.8 % (0.0-7.0); Granulocytes % (Auto) 64.7 % (38.0-78.0); Hematocrit 37.7 % (36.0-48.0); Hemoglobin 12.6 g/dL (12.0-15.0); Lymphocytes % (Auto) 31.5 % (15.5-49.0); Mean Cell Volume 85.9 fL (80.0-100.0); Mean Corpuscular HGB Conc 33.4 g/dL (31.0-36.0); Mean Platelet Volume 8.2 fL (7.4-10.4); Monocytes # (Auto) 0.1 K/mcL (0.1-0.9); Monocytes % (Auto) 2.2 % (1.0-12.0); Platelet Count 252 K/mcL (140-440); RBC 4.38 M/mcL (4.00-5.20); Red Cell Distribution Width 21.2 % (11.5-14.5); WBC 6.5 K/mcL (4.5-11.0)
[2019-01-04] MEDS ORDERED: LACTATED RINGERS 1,000 ML IV SCH ×2 (22:15)
[2019-01-04 22:18] LABS: INR 1.2 (0.9-1.1); Prothrombin Time 15.4 sec (11.9-14.5)
[2019-01-04 22:23] LABS: Alcohol, Blood < 10.0 mg/dL (<10); Alcohol,Blood < 0.010 gm/dl (<0.010)
[2019-01-04 22:33] LABS: ALT/SGPT 43 U/l (0-40); AST/SGOT 102 U/l (0-37); Albumin 2.9 gm/dL (3.2-5.2); Albumin/Globulin Ratio 1.1 (1.0-2.3); Alkaline Phosphatase 160 U/L (39-117); Bilirubin,Total 1.7 mg/dL (0.0-1.0); Blood Urea Nitrogen 9 mg/dl (6-20); Calcium 8.2 mg/dl (8.6-10.4); Carbon Dioxide 41 mmol/L (22-30); Chloride 72 mmol/L (96-108); Globulin 2.6 gm/dL (2.2-3.7); Glomerular Filtration Rate 84; Glucose 86 mg/dL (70-105); proBNP 700.8 pg/ml (0-125)
[2019-01-04] MEDS ORDERED: MAGNESIUM SULFATE 24.36 MEQ in DEXTROSE 5% IN WATER 50 ML IV ONE (22:55)
--- NOTE | 2019-01-04 23:01 | Internal Med History&Physical ---
Medical - H&P: HPI Patient information: Note initiated : 01/04/19 at 11:01 pm Service Date, if different from initiated Date: [] Patient: Oksana Salcedo a 53 y/o F admitted on for body cramps, n/v, dizzy, syncope. Chief Complaint: [] Chief complaint: Weakness, confusion and nausea History of present illness: Ms. Salcedo is a 53 year old F with h/o mental health disorder, paranoia, alcohol abuse, who presents to the ER for evaluation of weakness , nausea and vomiting. She also carries a history of bulimia with induced vomiting( per her Spike during previous hospitalization). Patient over the last few days has been progressively getting weaker, confused and has sustained multiple ground-level falls. Her symptoms were associated with severe vomiting and inability to take anything by mouth. She was discovered on the floor today and subsequently was brought into the ER. The patient is a very poor historian and frequently changes her story just like previous with a history of the hospital. She complains of dizziness. She has an extensive work-up during her past hospitalization with similar symptoms. She denied associated fever chills or diarrhea or bloody stool. Demonstrate an extremely labile affect She also carries a significant history of alcohol abuse, unclear if she has been drinking recently She has been previously evaluated by psych services as per medical records Most of the history was obtained from review of medical records Initial work-up in the ER was consistent with severe electrolyte derangement with critical potassium at 2, elevated lactic acid around 6, severe metabolic alkalosis with a pH 7.67, Bicarbonate 50, anion gap 20, magnesium 1, elevated LFTs and a sodium 127. Patient was rapidly started on crystalloid resuscitation along with electrolytes replacement. She is severely volume depleted. ABG shows 7.67/46/48. EKG changes consistent hypokalemia. Subsequently hospitalist service was consulted for admission in light of patient being critically ill as of above At the time of evaluation patient is fatigued lethargic unable to provide a detailed history. She did however respond to verbal commands. She is reluctant to when asked about alcohol use. Intermittently agitated. History again was reviewed from prior medical records and ER physician. Patient will be admitted to PCU in light of severe hypokalemia and low risk of life-threatening arrhythmia in the setting of volume severe electrode derangement/volume deple tion/elevated LFTs and high risk of alcohol withdrawal Review of systems 10 point review system was performed and is negative except was discussed above Medical - H&P: PMH Medical history: PTSD anxiety Depression paranoia/ schizophrenia?? Surgical History H/O oral surgery (Chronic) Teeth extracted for dentures History of 2 sections (Chronic) History of esophagogastroduodenoscopy (EGD) (Chronic) Social History household members: other occupational status: disabled smoking status: Current some day smoker adopted lives by self with ex ? heavy etohy drinker THC user denies any other substance use Pertinent family history: adopted Medical - H&P: Meds Home Medications Medication Instructions Recorded Confirmed Type Bacillus coagulans 1 tab PO QDAY 10/27/17 05/18/18 History linaclotide 145 mcg capsule 145 mcg PO DAILY cap 10/27/17 05/18/18 History metoclopramide HCl 10 mg tablet 10 mg PO BID tab 10/27/17 05/18/18 History naproxen sodium 1 tablet PO PRN PRN 10/27/17 05/18/18 History omeprazole 40 mg capsule,delayed 40 mg PO DAILY cap 10/27/17 05/18/18 History release ondansetron 8 mg disintegrating 8 mg PO .q8 PRN tab 10/27/17 05/18/18 History tablet quetiapine 100 mg tablet 100 mg PO QHS tab 10/27/17 05/18/18 History triamcinolone acetonide 0.1 % 1 applic TOPICAL BID 10/27/17 05/18/18 History topical cream HYDROcodone/ACETAMINOPHEN [[place] 1 each PO Q8 PRN #15 tab 12/30/17 05/18/18 Rx 7.5-325 Tablet] cholecalciferol (vitamin D3) 50,000 unit PO QWEEK #12 cap 02/09/18 05/18/18 Rx 50,000 unit capsule Hydrocodone/APAP 7.5/325Mg [[place] 1 - 2 tab PO Q4HP PRN #30 tab 05/19/18 Rx 7.5-325Mg] Magnesium Oxide [Magnesium] 400 mg PO BID #60 tab 05/19/18 Rx Potassium Chloride [K-Tab ER] 10 meq PO BID #90 tab 05/19/18 Rx Allergies Allergy/AdvReac Type Severity Reaction Status Date / Time prochlorperazine Allergy Severe Anaphylaxis Verified 01/04/19 20:21 Medical - H&P: Exam - Constitutional Vitals: Temp Pulse Resp BP Pulse Ox 97.3 F 81 16 107/74 99 01/04/19 19:43 01/04/19 22:46 01/04/19 22:46 01/04/19 22:46 01/04/19 22:46 Exam: Patient alert with intimately confused Head normocephalic Oral cavity dry No ear nose discharge GCS 14 Neck no lymphadenopathy S1-S2 regular rhythm ESM grade 1 Diminished breath sounds bases, bruising left lower anterior abdomen Abdomen soft nontender Lower extremity no sinus clubbing no joint swelling Bruising/lymphedema noted Skin lower extremity bruising noted Tremors noted Psych alert Neuro nonfocal Medical - H&P: Reslt - Labs CBC & Chem 7: 01/05/19 03:22 01/04/19 20:00 Labs: Short CBC 01/04/19 Range/Units 20:00 WBC 6.5 (4.5-11.0) K/mcL Hgb 12.6 (12.0-15.0) g/dL Hct 37.7 (36.0-48.0) % Plt Count 252 (140-440) K/mcL BMP 01/04/19 20:00 Sodium 133 Potassium 2.0 L* Chloride 72 L Carbon Dioxide 41 H* BUN 9 Creatinine 0.8 Glucose 86 Calcium 8.2 L Cardiac Enzymes 01/04/19 Range/Units 20:00 Troponin T < 0.01 (0-0.03) ng/ml Liver Function 01/04/19 Range/Units 20:00 Total Bilirubin 1.7 H (0.0-1.0) mg/dL AST 102 H (0-37) U/l ALT 43 H (0-40) U/l Alkaline Phosphatase 160 H (39-117) U/L Albumin 2.9 L (3.2-5.2) gm/dL Medical - H&P: A/P (1) Hypokalemia Current visit: Yes Status: Acute * Critical Hypokalemia and risk of life-threatening arrhythmia-potassium at 2. Aggressive oral and IV potassium replacement target 200 mEq in the first 12 hours. For close hemodynamic monitoring. Admit to ICU * [id number] oral and IV replacement * Hypocalcemia-status post IV calcium gluconate * Hyponatremia due to poor intake/electrolyte loss from nausea * Severe metabolic alkalosis with pH 7.67. Likely secondary to vomiting and gastric acid loss. Continue crystalloids. Recheck lactate. Repeat ABG. * Severe deconditioning-aggressive PT OT/eval and treatment * Chronic widespread pain and weakness-continue as needed opioids * Elevated LFTs likely secondary to ischemic hepatopathy versus alcoholism. Continue monitoring * History of alcohol abuse-multivitamin/thiamine/CIWA protocol * Nausea/ vomiting- History of self-induced vomiting/bulimia as per prior medical records. We will try to obtain Prior work-up including upper endoscopy. * History of paranoia/previous psych ptosis continue quetiapine\ * History of GERD continue PPI * Full code * Prophylaxis heparin Plan * PCU admit. Patient critically ill. Intensive watch for arrhythmia/hemodynamics * Aggressive electrolyte replacement including potassium magnesium calcium * Replace 4 g magnesium, 200 mEq potassium IV and oral * CIWA protocol * Nutrition consult * Aggressive PT OT for gait and safety eval in light of recurrent falls * 6 hourly BMP check * Aggressive crystalloid replacement * Serial lactate and blood gas * Prior medical condition management on home meds * Case management to coordinate SNF transfer on discharge Patient critically ill. Initial [place] score over 18 mandating inpatient hospitalization in the setting of multiple electrolyte abnormalities/multiple organ dysfunction. Critical care time spent in excess of 35 minutes on management of above
[2019-01-04] MEDS ORDERED: HYDROmorphone 2 MG/ML VIAL ONE (23:57)
[2019-01-05] MEDS ORDERED: HYDROmorphone 2 MG/ML VIAL IV PRN
[2019-01-05] MEDS ORDERED: MAGNESIUM SULFATE 4 GM/100 ML BAG IV ONE (00:38)
[2019-01-05] MEDS: LACTATED RINGERS 1,000 ML IV SCH ×3 (01:30→16:10)
[2019-01-05] MEDS ORDERED: ACETAMINOPHEN 325 MG TABLET PO PRN (01:39)
[2019-01-05] MEDS ORDERED: POTASSIUM CHLORIDE 20 MEQ PACKET PO PRN (01:39)
[2019-01-05] MEDS ORDERED: MAGNESIUM SULFATE 2 GM/50 ML BAG IV PRN (01:39)
[2019-01-05] MEDS ORDERED: ONDANSETRON 4 MG/2 ML VIAL IV PRN (01:39)
[2019-01-05] MEDS ORDERED: MAGNESIUM SULFATE 24.36 MEQ in DEXTROSE 5% IN WATER 50 ML IV ONE (01:39)
[2019-01-05] MEDS ORDERED: POTASSIUM CHLORIDE 40 MEQ in DEXTROSE 5% IN WATER 500 ML IV PRN (01:39)
[2019-01-05] MEDS ORDERED: IOPAMIDOL 100 ML BOTTLE IV ONE (01:47)
[2019-01-05] MEDS ORDERED: POTASSIUM CHLORIDE 20 MEQ/10 ML VIAL IV ONE ×5 (01:57→02:28)
[2019-01-05] MEDS ORDERED: POTASSIUM CHLORIDE 100 MEQ in DEXTROSE 5% IN WATER 1,000 ML IV ONE (02:36)
[2019-01-05] MEDS ORDERED: POTASSIUM CHLORIDE 20 MEQ/15 ML ML PT SCH (04:27)
[2019-01-05] MEDS: 0.9 % SODIUM CHLORIDE 10 ML SYRINGE IV SCH ×2 (05:14→14:00)
[2019-01-05 05:29] LABS: Hematocrit 27.7 % (36.0-48.0); Hemoglobin 9.2 g/dL (12.0-15.0); Mean Corpuscular HGB Conc 33.4 g/dL (31.0-36.0); Mean Platelet Volume 7.9 fL (7.4-10.4); Platelet Count 137 K/mcL (140-440); RBC 3.14 M/mcL (4.00-5.20); Red Cell Distribution Width 22.1 % (11.5-14.5); WBC 3.5 K/mcL (4.5-11.0)
[2019-01-05 05:54] LABS: ALT/SGPT 28 U/l (0-40); AST/SGOT 63 U/l (0-37); Albumin/Globulin Ratio 1.1 (1.0-2.3); Alkaline Phosphatase 111 U/L (39-117); Bilirubin,Direct 0.4 mg/dL (0.0-0.3); Bilirubin,Total 1.4 mg/dL (0.0-1.0); Blood Urea Nitrogen 7 mg/dl (6-20); Calcium 7.6 mg/dl (8.6-10.4); Carbon Dioxide 40 mmol/L (22-30); Chloride 85 mmol/L (96-108); Globulin 1.9 gm/dL (2.2-3.7); Glomerular Filtration Rate 104; Glucose 89 mg/dL (70-105); Lactate Dehydrogenase 282 U/L (94-250); Phosphorous 3.8 mg/dL (2.7-4.5); Triglycerides 74 mg/dl (<150); Uric Acid 4.7 mg/dL (2.5-8.0)
--- NOTE | 2019-01-05 05:54 | Cat Scan Report ---
CLINICAL INFORMATION: Vomiting. Nausea. Abdominal pain TECHNIQUE: Axial postcontrast enhanced images through the abdomen and pelvis. Oral contrast material was not administered. Sagittal and coronal reformatted images COMPARISON: None. FINDINGS: Gastrointestinal: Colon is diffusely abnormal. There is generalized wall thickening and loss of normal haustration. There is mucosal enhancement. There is no detectable focal mass. Appearance is consistent with pancolitis. There is no diverticulitis. There is a rectum are prominent. Appendix is negative. Small bowel is negative. No mechanical small bowel obstruction. Stomach and duodenum appear normal. Lung bases: Negative. No focal infiltrate or mass. There is no pleural fluid. No pericardial fluid. There is a moderate hiatal hernia. Liver: Markedly low density liver consistent with diffuse hepatic steatosis. There is no focal mass. Liver contour is smooth. There is no ascites. Gallbladder, biliary: No calcified gallstones. No dilated bile ducts. Spleen: Negative. No splenomegaly. Normal enhancement of splenic and portal veins Pancreas: Negative. No pancreatic mass. No pancreatic duct dilatation. No evidence for pancreatitis Adrenal glands: Negative Kidneys, ureters, bladder: No obstructing or nonobstructing calculi. There is no hydronephrosis or hydroureter. No solid or cystic mass. No ureteral calculi. No bladder stone. Vascular: Mild atherosclerotic calcification of the abdominal aorta. No abdominal aortic aneurysm Lymphatic: No retroperitoneal or mesenteric adenopathy Reproductive: Uterus is anteflexed. No adnexal mass Mesentery, peritoneum: No free intraperitoneal fluid. No intra-abdominal abscess. There is no pneumoperitoneum Musculoskeletal, abdominal wall: Normal lumbar vertebral body heights. Degenerative disc disease at L1-2. Single sclerotic focus in the left sacral wing. Its may be a benign bone island. Clinical correlation for history of primary neoplasm recommended. Pelvis is negative. No fracture. No lytic lesion. Hips are negative. There is no inguinal hernia. No abdominal wall hernia. Examination was initially interpreted by [facility] IMPRESSION: 1. Diffusely abnormal colon. Diffuse wall thickening with mucosal enhancement and prominent vasa recta. Appearance is consistent with pancolitis 2. Markedly low density liver consistent with hepatic steatosis. No focal mass Interpreted and Authenticated by: Robin Raines 01/05/19
--- NOTE | 2019-01-05 05:56 | XRay Report ---
INDICATION: Syncope. Dizziness. TECHNIQUE: AP chest x-ray,portable semiupright COMPARISON: Previous examinations dated 12/29/2017, 04/05/2017 FINDINGS:Lungs are negative. No parenchymal infiltrate or mass. No focal pulmonary parenchymal abnormality. Heart size and vascularity are normal. Yaz and mediastinum are negative. No pleural fluid. IMPRESSION: Negative AP portable chest x-ray Interpreted and Authenticated by: Robin Raines 01/05/19
--- NOTE | 2019-01-05 06:04 | Internal Med Progress Note ---
Medical - PN: Subj Patient information: Note initiated : 01/05/19 at 6:02 am Service Date, if different from initiated Date: [] Patient: Oksana Salcedo a 53 y/o F admitted on 01/05/19 for body cramps, n/v, dizzy, syncope. Chief Complaint: [] Interval history: Ms. Salcedo is a 53 year old F with h/o mental health disorder, paranoia, alcohol abuse, who presents to the ER for evaluation of weakness , nausea and vomiting. She also carries a history of bulimia with induced vomiting( per her Spike during previous hospitalization). Patient over the last few days has been progressively getting weaker, confused and has sustained multiple ground-level falls. Her symptoms were associated with severe vomiting and inability to take anything by mouth. She was discovered on the floor today and subsequently was b rought into the ER. The patient is a very poor historian and frequently changes her story just like previous with a history of the hospital. She complains of dizziness. She has an extensive work-up during her past hospitalization with similar symptoms. She denied associated fever chills or diarrhea or bloody stool. Demonstrate an extremely labile affect She also carries a significant history of alcohol abuse, unclear if she has been drinking recently She has been previously evaluated by psych services as per medical records Most of the history was obtained from review of medical records Initial work-up in the ER was consistent with severe electrolyte derangement with critical potassium at 2, elevated lactic acid around 6, severe metabolic alkalosis with a pH 7.67, Bicarbonate 50, anion gap 20, magnesium 1, elevated LFTs and a sodium 127. Patient was rapidly started on crystalloid resuscitation along with electrolytes replacement. She is severely volume depleted. ABG shows 7.67/46/48. EKG changes consistent hypokalemia. Subsequently hospitalist service was consulted for admission in light of patient being critically ill as of above At the time of evaluation patient is fatigued lethargic unable to provide a detailed history. She did however respond to verbal commands. She is reluctant to when asked about alcohol use. Intermittently agitated. History again was reviewed from prior medical records and ER physician. Patient will be admitted to PCU in light of severe hypokalemia and low risk of life-threatening arrhythmia in the setting of volume severe electrode derangement/volume depletion/elevated LFTs and high risk of alcohol withdrawal 10/25-patient improving. Overnight mildly hypotensive. On 2 L oxygen. Much more alert. Well rested. Potassium improved to 2.2. On continuous IV infusion at 10 mg in addition to 80 mg oral potassium to be administered in the next 2 hours. Anion gap resolved. IV fluids infusing. Start diet as tolerated. Magnesium at 2. Bilirubin downtrending. LFTs improved. Lactic acid down from 5.9-2.1. Hemoglobin 9.2. - Constitutional Vitals: Vital Signs Temp Pulse Resp BP Pulse Ox 98.8 F 67 12 79/63 93 01/05/19 00:05 01/05/19 05:21 01/05/19 05:21 01/05/19 05:03 01/05/19 05:21 Period Temp Pulse Resp BP Sys/Gonzalez Pulse Ox Last 24 Hr 97.3 F-98.8 F 67-144 11-28 77-128/49-105 89-100 Intake and Output 01/04/19 01/05/19 01/05/19 21:59 05:59 13:59 Intake Total 3459 Output Total 175 Balance 3284 Weight 130 lb 130 lb Intake & Output: Intake & Output 01/04/19 01/05/19 01/05/19 21:59 05:59 13:59 Intake Total 3459 Output Total 175 Balance 3284 Weight 130 lb 130 lb Intake: IV 3459 Sodium Chloride 0.9% 2,000 ml @ 2000 Wide Open IV .Q0M ONE Rx#: [id number] Lactated Ringers 1,000 ml @ 150 833 mls/hr IV .Q6H40M ON LICENSE OF [facility] Rx#: [id number] Magnesium Sulfate 24.36 Meq In 56 Dextrose 5% in Water 50 ml @ 18 .667 mls/hr IV ONCE ONE Rx#: [id number] Zosyn 3.375 gm In Dextrose 5% 50 in Water 50 ml @ 100 mls/hr IV ONCE ONE Rx#:[id number] Potassium Chloride 40 Meq In 520 Dextrose 5% in Water 500 ml @ 130 mls/hr IV ONCE ONE Rx#: [id number] Output: Void Amount 175 Other: Urine Appearance Cloudy Urine Color Dark Yellow General appearance: no acute distress Exam: Resting comfortably Nonlabored breathing No anxiety No telemetry events Systolics around 80s Medical - PN: Obj Da - Labs CBC & Chem 7: 01/05/19 03:22 01/05/19 03:22 Labs: Abnormal Lab Results 01/05/19 01/05/19 01/05/19 04:45 03:22 03:22 WBC 3.5 L RBC 3.14 L Hgb 9.2 L Hct 27.7 L POC Hct RDW 22.1 H Plt Count 137 L PT INR D-Dimer VBG Lactic Acid 2.1 H POC Sodium POC Potassium Potassium 2.2 L* POC Chloride Chloride 85 L Carbon Dioxide 40 H POC Total CO2 Anion Gap POC Creatinine Calcium 7.6 L POC WB Ioniz Calcium Magnesium Total Bilirubin 1.4 H Direct Bilirubin 0.4 H GGT 66 H AST 63 H ALT Alkaline Phosphatase Lactate Dehydrogenase 282 H NT-Pro-B Natriuret Pep Total Protein 3.9 L Albumin 2.0 L Globulin 1.9 L 01/04/19 01/04/19 01/04/19 22:37 20:08 20:00 WBC RBC Hgb Hct POC Hct 33.0 L RDW Plt Count PT INR D-Dimer VBG Lactic Acid 2.3 H 5.9 H* POC Sodium 127 L POC Potassium < 2.0 L* Potassium 2.0 L* POC Chloride 66 L Chloride 72 L Carbon Dioxide 41 H* POC Total CO2 50 H* Anion Gap 20.0 H POC Creatinine 0.5 L Calcium 8.2 L POC WB Ioniz Calcium 0.86 L Magnesium 1.0 L Total Bilirubin 1.7 H Direct Bilirubin GGT AST 102 H ALT 43 H Alkaline Phosphatase 160 H Lactate Dehydrogenase NT-Pro-B Natriuret Pep 700.8 H Total Protein 5.5 L Albumin 2.9 L Globulin 01/04/19 01/04/19 20:00 20:00 WBC RBC Hgb Hct POC Hct RDW 21.2 H Plt Count PT 15.4 H INR 1.2 H D-Dimer 0.50 H VBG Lactic Acid POC Sodium POC Potassium Potassium POC Chloride Chloride Carbon Dioxide POC Total CO2 Anion Gap POC Creatinine Calcium POC WB Ioniz Calcium Magnesium Total Bilirubin Direct Bilirubin GGT AST ALT Alkaline Phosphatase Lactate Dehydrogenase NT-Pro-B Natriuret Pep Total Protein Albumin Globulin Meds: Medications Acetaminophen (Tylenol) 650 mg PO Q4-6HP PRN; Protocol PRN Reason: Per Pain Protocol/Fever > 101 Cyanocobalamin (Vitamin B-12) 1,000 mcg PO BID [facility] Stop: 01/09/19 21:01 Docusate Sodium (Colace) 100 mg PO BID ON LICENSE OF [facility] Folic Acid (Folic Acid) 1 mg PO DAILY ON LICENSE OF [facility] Heparin Sodium (Porcine) (Heparin) 5,000 unit SQ Q12 ON LICENSE OF [facility] Hydromorphone HCl (Dilaudid) 0.25 mg IV Q4HP PRN; Protocol PRN Reason: Per Pain Protocol Last Admin: 01/05/19 00:00 Dose: 0.25 mg Documented by: Lactated Ringer's (Lactated Ringers) 1,000 mls @ 150 mls/hr IV .Q6H40M ON LICENSE OF [facility] Last Admin: 01/05/19 05:14 Dose: 150 mls/hr Documented by: Magnesium Sulfate 24.36 meq/ (Dextrose) 56 mls @ 18.667 mls/hr IV ONCE ONE Stop: 01/05/19 01:54 Last Infusion: 01/05/19 03:47 Dose: Infused Documented by: Magnesium Sulfate (Magnesium Sulfate) 2 gm in 50 mls @ 50 mls/hr IV UD PRN PRN Reason: MG = or < 1.7 Potassium Chloride 40 meq/ (Dextrose) 520 mls @ 130 mls/hr IV UD PRN PRN Reason: K+ = or < 3.5 Potassium Chloride 100 meq/ (Dextrose) 1,050 mls @ 100 mls/hr IV ONCE ONE Stop: 01/05/19 13:05 Last Admin: 01/05/19 03:46 Dose: 100 mls/hr Documented by: Iron Carb/Multivit/Dunstan/Folic Acid (Multivitamin W/Minerals) 1 tab PO DAILY ON LICENSE OF [facility] Magnesium Oxide (Magnesium Oxide) 400 mg PO BID ON LICENSE OF [facility] Ondansetron HCl (Zofran) 4 mg IV Q4-6HP PRN; Protocol PRN Reason: Nausea And Vomiting Potassium Chloride (Klor-Con) 40 meq PO DAILYP PRN PRN Reason: K+ < 3.5 Potassium Chloride (Potassium Chloride) 40 meq PT BIDCC ON LICENSE OF [facility] Senna/Docusate Sodium (Senna Plus Tablet) 1 tab PO [facility] Sodium Chloride (Saline Flush) 10 ml IV Q8 ON LICENSE OF [facility] Last Admin: 01/05/19 05:14 Dose: Not Given Documented by: Thiamine HCl (Vitamin B1) 100 mg PO DAILY ON LICENSE OF [facility] Medical - PN: A/P - Time Spent With Patient Total time spent is greater than 50% in coordination of care (as documented) at patient's floor/unit and/or counseling patient: Greater than 35 minutes (Critical care time) (1) Hypokalemia Status: Acute Assessment and plan: * Hypovolemic shock-systolics in 70s. Continue crystalloid challenges. Secondary to volume loss from nausea/poor oral intake. Improved lactate from 5.9-2.1. Improving hemodynamics. * Critical Hypokalemia and risk of life-threatening arrhythmia-potassium at uptrending now at 2.2. Continue oral and IV potassium replacement (target 200 mEq in the first 12 hours) repeat BMP at 10 AM * [id number] with replacement * Hypocalcemia-improving with replacement * Hyponatremia -normalized * Severe metabolic alkalosis with pH 7.67. Improving. Likely secondary to vomiting and gastric acid loss. * Severe deconditioning-target aggressive PT OT/eval and treatment. Case management to coordinate SNF transfer on discharge * Chronic diffuse pain and weakness-continue as needed opioids. Patient remains a high risk fall * Elevated LFTs likely secondary to ischemic hepatopathy versus alcoholism. Interval improvement noted with downtrending bilirubin and transaminases * History of alcohol abuse-multivitamin/thiamine/CIWA protocol * Nausea/ vomiting- History of self-induced vomiting/bulimia as per prior medical records. We will try to obtain Prior work-up including upper endoscopy. * History of paranoia/previous psychosis restart quetiapine once electrolytes normalizes * History of GERD continue PPI * Full code * Prophylaxis heparin Plan * Continue ICU care. Crystalloid challenge for hypovolemic shock * 200 meq IV and oral potassium replacement * Repeat BMP at 10 AM * Nutrition consult * Aggressive PT OT for gait and safety eval in light of recurrent falls * Aggressive crystalloid replacement * Prior medical condition management -gradually restart home meds * Case management to coordinate SNF transfer on discharge Improving prognosis in light of improving hypovolemic shock/electrolyte derangement Current Visit: Yes
[2019-01-05 06:20] LABS: Anisocytosis 2+ (NONE SEEN); Band Neutrophils % 1 % (0-10); Eosinophils % (Manual) 1 % (0-7); Lymphocytes % 47 % (15-49); Monocytes % (Manual) 1 % (1-12); Platelet Estimate DECREASED (NORMAL); RBC Morphology ABNORM (NORMAL); Segmented Neutrophils % 50 % (38-78); Toxic Granulation 1+ (NONE SEEN)
[2019-01-05] MEDS: MAGNESIUM OXIDE 400 MG TABLET PO SCH ×3 (06:58→20:39)
[2019-01-05] MEDS: POTASSIUM CHLORIDE 20 MEQ/15 ML ML PO SCH ×2 (06:58→09:21)
[2019-01-05] MEDS ORDERED: ACETAMINOPHEN 900 MG/90 ML BOTTLE IV PRN (07:46)
[2019-01-05] MEDS: HYDROcodone/APAP 5/325MG TABLET PO PRN ×2 (08:42→17:58)
[2019-01-05] MEDS ORDERED: HEPARIN 5,000 UNIT/ML VIAL SQ SCH (09:00)
[2019-01-05] MEDS: DOCUSATE SODIUM 100 MG CAPSULE PO SCH ×2 (09:13→20:39)
[2019-01-05] MEDS: CYANOCOBALAMIN (VITAMIN B-12) 500 MCG TABLET PO SCH ×2 (09:22→20:38)
[2019-01-05] MEDS: THIAMINE 100 MG TABLET PO SCH (09:22)
[2019-01-05] MEDS: MULTIVIT,THER IRON,CA,FA & MIN 1 TABLET PO SCH (09:23)
[2019-01-05] MEDS: FOLIC ACID 1 MG TABLET PO SCH (09:23)
--- NOTE | 2019-01-05 10:25 | Internal Med Progress Note ---
Medical - PN: Subj Patient information: Note initiated : 01/05/19 at 10:22 am Service Date, if different from initiated Date: [] Patient: Oksana Salcedo a 53 y/o F admitted on 01/05/19 for body cramps, n/v, dizzy, syncope. Chief Complaint: [] Interval history: Ms. Salcedo is a 53 year old F with h/o mental health disorder, paranoia, alcohol abuse, who presents to the ER for evaluation of weakness , nausea and vomiting. She also carries a history of bulimia with induced vomiting( per her Spike during previous hospitalization). Patient over the last few days has been progressively getting weaker, confused and has sustained multiple ground-level falls. Her symptoms were associated with severe vomiting and inability to take anything by mouth. She was discovered on the floor today and subsequently was brought into the ER. The patient is a very poor historian and frequently changes her story just like previous with a history of the hospital. She complains of dizziness. She has an extensive work-up during her past hospitalization with similar symptoms. She denied associated fever chills or diarrhea or bloody stool. Demonstrate an extremely labile affect She also carries a significant history of alcohol abuse, unclear if she has been drinking recently She has been previously evaluated by psych services as per medical records Most of the history was obtained from review of medical records Initial work-up in the ER was consistent with severe electrolyte derangement with critical potassium at 2, elevated lactic acid around 6, severe metabolic alkalosis with a pH 7.67, Bicarbonate 50, anion gap 20, magnesium 1, elevated LFTs and a sodium 127. Patient was rapidly started on crystalloid resuscitation along with electrolytes replacement. She is severely volume depleted. ABG shows 7.67/46/48. EKG changes consistent hypokalemia. Subsequently hospitalist service was consulted for admission in light of patient being critically ill as of above At the time of evaluation patient is fatigued lethargic unable to provide a detailed history. She did however respond to verbal commands. She is reluctant to when asked about alcohol use. Intermittently agitated. History again was reviewed from prior medical records and ER physician. Patient will be admitted to PCU in light of severe hypokalemia and low risk of life-threatening arrhythmia in the setting of volume severe electrode derangement/volume depletion/elevated LFTs and high risk of alcohol withdrawal 01/05-patient improving. Overnight mildly hypotensive. On 2 L oxygen. Much more alert. Well rested. Potassium improved to 2.2. On continuous IV infusion at 10 mg in addition to 80 mg oral potassium to be administered in the next 2 hours. Anion gap resolved. IV fluids infusing. Start diet as tolerated. Magnesium at 2. Bilirubin downtrending. LFTs improved. Lactic acid down from 5.9-2.1. Hemoglobin 9.2. - Constitutional Vitals: Vital Signs Temp Pulse Resp BP Pulse Ox 98.8 F 94 H 24 H 95/64 100 01/05/19 00:05 01/05/19 09:04 01/05/19 09:04 01/05/19 08:01 01/05/19 09:04 Period Temp Pulse Resp BP Sys/Gonzalez Pulse Ox Last 24 Hr 97.3 F-98.8 F 67-144 10- 70-128/37-105 89-100 Intake and Output 01/04/19 01/05/19 01/05/19 21:59 05:59 13:59 Intake Total 3459 570 Output Total 175 75 Balance 3284 495 Weight 58.967 kg 58.967 kg Intake & Output: Intake & Output 01/04/19 01/05/19 01/05/19 21:59 05:59 13:59 Intake Total 3459 570 Output Total 175 75 Balance 3284 495 Weight 58.967 kg 58.967 kg Intake: IV 3459 90 Sodium Chloride 0.9% 2,000 ml @ 2000 Wide Open IV .Q0M ONE Rx#: [id number] Lactated Ringers 1,000 ml @ 150 833 mls/hr IV .Q6H40M [facility] Rx#: [id number] Magnesium Sulfate 24.36 Meq In 56 Dextrose 5% in Water 50 ml @ 18 .667 mls/hr IV ONCE ONE Rx#: [id number] Zosyn 3.375 gm In Dextrose 5% 50 in Water 50 ml @ 100 mls/hr IV ONCE ONE Rx#:[id number] Potassium Chloride 40 Meq In 520 Dextrose 5% in Water 500 ml @ 130 mls/hr IV ONCE ONE Rx#: [id number] Oral 480 Output: Void Amount 175 75 Other: Urine Appearance Cloudy Urine Color Dark Yellow Dark Jaylin Stool Size Small Stool Color Yellow Green Stool Consistency Liquid Loose # Bowel Movements 1 Exam: General: Alert, Awake, No acute Distress Eyes/N/T: EOMI, Head/Neck: neck supple, CV: RRR, No murmurs, Pulm: Clear b/l, no wheezing/rhonchi/rales Abd: soft, nontender, +BS x4 Ext: no clubbing/cyanosis/edema Neuro: Alert, no focal deficits, moves all extremities, Skin: warm/dry Medical - PN: Obj Da - Labs CBC & Chem 7: 01/05/19 03:22 01/05/19 12:18 Labs: Abnormal Lab Results 01/05/19 01/05/19 01/05/19 04:45 03:22 03:22 WBC 3.5 L RBC 3.14 L Hgb 9.2 L Hct 27.7 L POC Hct RDW 22.1 H Plt Count 137 L WBC Morphology Abnorm A Toxic Granulation 1+ A RBC Morphology Abnorm A Anisocytosis 2+ A PT INR D-Dimer VBG Lactic Acid 2.1 H POC Sodium POC Potassium Potassium 2.2 L* POC Chloride Chloride 85 L Carbon Dioxide 40 H POC Total CO2 Anion Gap POC Creatinine Calcium 7.6 L POC WB Ioniz Calcium Magnesium Total Bilirubin 1.4 H Direct Bilirubin 0.4 H GGT 66 H AST 63 H ALT Alkaline Phosphatase Lactate Dehydrogenase 282 H NT-Pro-B Natriuret Pep Total Protein 3.9 L Albumin 2.0 L Globulin 1.9 L 01/04/19 01/04/19 01/04/19 22:37 20:08 20:00 WBC RBC Hgb Hct POC Hct 33.0 L RDW Plt Count WBC Morphology Toxic Granulation RBC Morphology Anisocytosis PT INR D-Dimer VBG Lactic Acid 2.3 H 5.9 H* POC Sodium 127 L POC Potassium < 2.0 L* Potassium 2.0 L* POC Chloride 66 L Chloride 72 L Carbon Dioxide 41 H* POC Total CO2 50 H* Anion Gap 20.0 H POC Creatinine 0.5 L Calcium 8.2 L POC WB Ioniz Calcium 0.86 L Magnesium 1.0 L Total Bilirubin 1.7 H Direct Bilirubin GGT AST 102 H ALT 43 H Alkaline Phosphatase 160 H Lactate Dehydrogenase NT-Pro-B Natriuret Pep 700.8 H Total Protein 5.5 L Albumin 2.9 L Globulin 01/04/19 01/04/19 20:00 20:00 WBC RBC Hgb Hct POC Hct RDW 21.2 H Plt Count WBC Morphology Toxic Granulation RBC Morphology Anisocytosis PT 15.4 H INR 1.2 H D-Dimer 0.50 H VBG Lactic Acid POC Sodium POC Potassium Potassium POC Chloride Chloride Carbon Dioxide POC Total CO2 Anion Gap POC Creatinine Calcium POC WB Ioniz Calcium Magnesium Total Bilirubin Direct Bilirubin GGT AST ALT Alkaline Phosphatase Lactate Dehydrogenase NT-Pro-B Natriuret Pep Total Protein Albumin Globulin Meds: Medications Acetaminophen (Tylenol) 650 mg PO Q4-6HP PRN; Protocol PRN Reason: Per Pain Protocol/Fever > 101 Hydrocodone Bitart/Acetaminophen ([place] 5/325mg) 0.5 tab PO Q6HP PRN PRN Reason: PAIN LEVEL > 6 Last Admin: 01/05/19 08:42 Dose: 0.5 tab Documented by: Cyanocobalamin (Vitamin B-12) 1,000 mcg PO BID [facility] Stop: 01/09/19 21:01 Last Admin: 01/05/19 09:22 Dose: 1,000 mcg Documented by: Docusate Sodium (Colace) 100 mg PO BID [facility] Last Admin: 01/05/19 09:13 Dose: Not Given Documented by: Folic Acid (Folic Acid) 1 mg PO DAILY [facility] Last Admin: 01/05/19 09:23 Dose: 1 mg Documented by: Lactated Ringer's (Lactated Ringers) 1,000 mls @ 150 mls/hr IV .Q6H40M [facility] Last Admin: 01/05/19 05:14 Dose: 150 mls/hr Documented by: Magnesium Sulfate (Magnesium Sulfate) 2 gm in 50 mls @ 50 mls/hr IV UD PRN PRN Reason: MG = or < 1.7 Potassium Chloride 40 meq/ (Dextrose) 520 mls @ 130 mls/hr IV UD PRN PRN Reason: K+ = or < 3.5 Potassium Chloride 100 meq/ (Dextrose) 1,050 mls @ 100 mls/hr IV ONCE ONE Stop: 01/05/19 13:05 Last Admin: 01/05/19 03:46 Dose: 100 mls/hr Documented by: Acetaminophen (Ofirmev) 900 mg in 90 mls @ 180 mls/hr IV Q6HP PRN; Protocol PRN Reason: PAIN/FEVER > 101 Last Infusion: 01/05/19 09:23 Dose: Infused Documented by: Iron Carb/Multivit/Fruit [employer] Nut [employer]er/Folic Acid (Multivitamin W/Minerals) 1 tab PO DAILY [facility] Last Admin: 01/05/19 09:23 Dose: 1 tab Documented by: Magnesium Oxide (Magnesium Oxide) 400 mg PO BID [facility] Last Admin: 01/05/19 09:23 Dose: 400 mg Documented by: Mupirocin (Bactroban Oint 2%) 1 dose NARES BID [facility] Ondansetron HCl (Zofran) 4 mg IV Q4-6HP PRN; Protocol PRN Reason: Nausea And Vomiting Last Admin: 01/05/19 07:27 Dose: 4 mg Documented by: Potassium Chloride (Klor-Con) 40 meq PO DAILYP PRN PRN Reason: K+ < 3.5 Senna/Docusate Sodium (Senna Plus Tablet) 1 tab PO HS [facility] Sodium Chloride (Saline Flush) 10 ml IV Q8 [facility] Last Admin: 01/05/19 05:14 Dose: Not Given Documented by: Thiamine HCl (Vitamin B1) 100 mg PO DAILY [facility] Last Admin: 01/05/19 09:22 Dose: 100 mg Documented by: Medical - PN: A/P - Time Spent With Patient Total time spent is greater than 50% in coordination of care (as documented) at patient's floor/unit and/or counseling patient: - Narrative A/P Narrative: A: *Hypovolemic shock: resolved, 2/2 volume loss from nausea/vomiting/poor oral intake. -Improved lactate *Critical Hypokalemia and risk of life-threatening arrhythmia: 2/2 emesis and alkalosis *HypoMag/Calc/Adore: *Severe metabolic alkalosis with pH 7.67: 22/ Emesis/Gastric acid loss. -Improving *Severe deconditioning/Generalized weakness: *Chronic diffuse pain and weakness: cont home prn opioids. Patient remains a high risk fall *Elevated LFTs likely secondary to ischemic hepatopathy versus alcoholism -Interval improvement noted with downtrending bilirubin and transaminases *ETOH/Tobacco Abuse: *Nausea/vomiting, h/o self-induced vomiting/bulimia as per prior medical records. -h/o laxative abuse *h/o paranoia/previous psychosis: has been off quetiapine for at least several months *GERD: continue PPI *Medication noncompliance: pt states she does not have a PCP currently and has not been taking her prescription medications for at least several months. -last med list from May includes linaclotide, reglan bid, zofran, naproxen, Prilosec, Seroquel, norco, KCl, Mag, Plan: -Continue ICU care -IVF -potassium replacement, f/u chemistry today -Nutrition consult -Aggressive PT/ OT for gait and safety eval in light of recurrent falls -multivitamin/thiamine/CIWA protocol -We will try to obtain Prior work-up including upper endoscopy. -Case management to coordinate SNF transfer on discharge -Smoking cessation counseling -ppx: heparin/home ppi Improving prognosis in light of improving hypovolemic shock/electrolyte derangement full code
[2019-01-05] MEDS ORDERED: 0.9 % SODIUM CHLORIDE 1,000 ML IV SCH (10:45)
[2019-01-05] MEDS: MUPIROCIN OINT 2% 22GM NARES SCH ×2 (11:09→20:38)
[2019-01-05] MEDS: PANTOPRAZOLE 40 MG TABLET PO SCH (11:09)
[2019-01-05 12:40] LABS: ABG Methemoglobin 0.3 % (0.4-1.5); VBG Base Excess 13.7 (-2.0-2.0); VBG PCO2 53.3 mmHg (41.0-51.0); VBG PH 7.48 U (7.32-7.42); VBG PO2 52 mmHg (25-40); VBG Total CO2 40.6 mmol/L (25.0-29.0)
[2019-01-05 13:04] LABS: Blood Urea Nitrogen 6 mg/dl (6-20); Calcium 7.9 mg/dl (8.6-10.4); Carbon Dioxide 35 mmol/L (22-30); Chloride 89 mmol/L (96-108); Glomerular Filtration Rate 111; Glucose 100 mg/dL (70-105)
[2019-01-05] MEDS ORDERED: ALBUMIN HUMAN 12.5 GM/50 ML BAG IV ONE (17:03)
[2019-01-05] MEDS: traMADol 50 MG TABLET PO PRN (20:50)
[2019-01-05] MEDS ORDERED: SENNOSIDES/DOCUSATE SODIUM 1 TAB TABLET PO SCH (21:00)
[2019-01-06] MEDS: HYDROcodone/APAP 5/325MG TABLET PO PRN ×4 (00:05→19:17)
[2019-01-06] MEDS: 0.9 % SODIUM CHLORIDE 10 ML SYRINGE IV SCH ×6 (00:10→21:03)
[2019-01-06 05:56] LABS: Hematocrit 27.1 % (36.0-48.0); Mean Cell Volume 88.7 fL (80.0-100.0); Mean Corpuscular HGB Conc 33.3 g/dL (31.0-36.0); Mean Platelet Volume 7.8 fL (7.4-10.4); Platelet Count 118 K/mcL (140-440); RBC 3.05 M/mcL (4.00-5.20); Red Cell Distribution Width 21.8 % (11.5-14.5); WBC 3.7 K/mcL (4.5-11.0)
[2019-01-06 06:14] LABS: ALT/SGPT 27 U/l (0-40); AST/SGOT 51 U/l (0-37); Albumin 2.3 gm/dL (3.2-5.2); Albumin/Globulin Ratio 1.3 (1.0-2.3); Alkaline Phosphatase 103 U/L (39-117); Bilirubin,Direct 0.2 mg/dL (0.0-0.3); Bilirubin,Total 0.6 mg/dL (0.0-1.0); Blood Urea Nitrogen 6 mg/dl (6-20); Calcium 7.8 mg/dl (8.6-10.4); Carbon Dioxide 31 mmol/L (22-30); Chloride 92 mmol/L (96-108); Globulin 1.8 gm/dL (2.2-3.7); Glomerular Filtration Rate 111; Glucose 82 mg/dL (70-105); Lactate Dehydrogenase 258 U/L (94-250); Triglycerides 86 mg/dl (<150); Uric Acid 3.6 mg/dL (2.5-8.0)
[2019-01-06] MEDS: PANTOPRAZOLE 40 MG TABLET PO SCH (07:41)
[2019-01-06] MEDS: traMADol 50 MG TABLET PO PRN ×2 (07:41→14:39)
[2019-01-06 08:01] LABS: Anisocytosis 2+ (NONE SEEN); Band Neutrophils % 2 % (0-10); Eosinophils % (Manual) 1 % (0-7); Hypochromasia 1+ (NONE SEEN); Lymphocytes % 63 % (15-49); Monocytes % (Manual) 1 % (1-12); Platelet Estimate DECREASED (NORMAL); RBC Morphology ABNORM (NORMAL); Segmented Neutrophils % 33 % (38-78)
[2019-01-06] MEDS ORDERED: MAGNESIUM SULFATE 2 GM/50 ML BAG IV ONE ×2 (08:11→09:53)
[2019-01-06] MEDS ORDERED: PHOSPHORUS 250 MG TABLET PO ONE (08:12)
--- NOTE | 2019-01-06 08:14 | Internal Med Progress Note ---
Medical - PN: Subj Patient information: Note initiated : 01/06/19 at 8:09 am Service Date, if different from initiated Date: [] Patient: Oksana Salcedo a 53 y/o F admitted on 01/05/19 for body cramps, n/v, dizzy, syncope. Chief Complaint: [] Interval history: Ms. Salcedo is a 53 year old F with h/o mental health disorder, paranoia, alcohol abuse, who presents to the ER for evaluation of weakness , nausea and vomiting. She also carries a history of bulimia with induced vomiting( per her Spike during previous hospitalization). Patient over the last few days has been progressively getting weaker, confused and has sustained multiple ground-level falls. Her symptoms were associated with severe vomiting and inability to take anything by mouth. She was discovered on the floor today and subsequently was b rought into the ER. The patient is a very poor historian and frequently changes her story just like previous with a history of the hospital. She complains of dizziness. She has an extensive work-up during her past hospitalization with similar symptoms. She denied associated fever chills or diarrhea or bloody stool. Demonstrate an extremely labile affect She also carries a significant history of alcohol abuse, unclear if she has been drinking recently She has been previously evaluated by psych services as per medical records Most of the history was obtained from review of medical records Initial work-up in the ER was consistent with severe electrolyte derangement with critical potassium at 2, elevated lactic acid around 6, severe metabolic alkalosis with a pH 7.67, Bicarbonate 50, anion gap 20, magnesium 1, elevated LFTs and a sodium 127. Patient was rapidly started on crystalloid resuscitation along with electrolytes replacement. She is severely volume depleted. ABG shows 7.67/46/48. EKG changes consistent hypokalemia. Subsequently hospitalist service was consulted for admission in light of patient being critically ill as of above At the time of evaluation patient is fatigued lethargic unable to provide a detailed history. She did however respond to verbal commands. She is reluctant to when asked about alcohol use. Intermittently agitated. History again was reviewed from prior medical records and ER physician. Patient will be admitted to PCU in light of severe hypokalemia and low risk of life-threatening arrhythmia in the setting of volume severe electrode derangement/volume depletion/elevated LFTs and high risk of alcohol withdrawal 10/25-patient improving. Overnight mildly hypotensive. On 2 L oxygen. Much more alert. Well rested. Potassium improved to 2.2. On continuous IV infusion at 10 mg in addition to 80 mg oral potassium to be administered in the next 2 hours. Anion gap resolved. IV fluids infusing. Start diet as tolerated. Magnesium at 2. Bilirubin downtrending. LFTs improved. Lactic acid down from 5.9-2.1. Hemoglobin 9.2. 01/06 Better blood pressures overnight. No new complaints. States she has some nausea but no vomiting. A 25% of her dinner last night refused the supplemental drink. Able to get more accurate urine outputs at this time. Previously was mixed with stool. Patient denies diarrhea at this time. Review of Systems: denies headache/fever/chills/vomiting/chest or abdominal pain/cough/dyspnea/diarrhea. Otherwise see above. - Constitutional Vitals: Vital Signs Temp Pulse Resp BP Pulse Ox 97.1 F 79 15 105/60 97 01/06/19 04:01 01/06/19 07:07 01/05/19 16:01 01/06/19 07:01 01/06/19 07:07 Period Temp Pulse Resp BP Sys/Gonzalez Pulse Ox Last 24 Hr 97.1 F-98.6 F 74-107 - 76-108/52-85 92-100 Intake and Output 01/05/19 01/06/19 01/06/19 21:59 05:59 13:59 Intake Total 1940 360 240 Output Total 450 175 Balance 1490 185 240 Weight 58.967 kg 69.4 kg Intake & Output: Intake & Output 01/05/19 01/06/19 01/06/19 21:59 05:59 13:59 Intake Total 1940 360 240 Output Total 450 175 Balance 1490 185 240 Weight 58.967 kg 69.4 kg Intake: IV 1100 Potassium Chloride 100 Meq In 1050 Dextrose 5% in Water 1,000 ml @ 100 mls/hr IV ONCE ONE Rx#: [id number] Oral 840 360 240 Output: Void Amount 100 Urine/Stool Mix 450 75 Other: Meal Dinner Percent of Meal Consumed 25% Feeding Ability Independent Urine Color Tea Colored Stool Size Small Small Stool Color Brown Brown Yellow Stool Consistency Liquid Soft Formed # Bowel Movements 1 Exam: General: Alert, Awake, No acute Distress Eyes/N/T: EOMI, Head/Neck: neck supple, CV: RRR, No murmurs, Pulm: Clear b/l, no wheezing/rhonchi/rales Abd: soft, nontender, +BS x4 Ext: no clubbing/cyanosis, trace b/l LE edema Neuro: Alert, no focal deficits, moves all extremities, Skin: warm/dry Medical - PN: Obj Da - Labs CBC & Chem 7: 01/06/19 04:23 01/06/19 04:23 Labs: Abnormal Lab Results 01/06/19 01/06/19 01/05/19 04:23 04:23 12:18 WBC 3.7 L RBC 3.05 L Hgb 9.0 L Hct 27.1 L POC Hct RDW 21.8 H Plt Count 118 L Seg Neutrophils % 33 L Lymphocytes % 63 H WBC Morphology Toxic Granulation RBC Morphology Abnorm A Hypochromasia 1+ A Anisocytosis 2+ A PT INR D-Dimer ABG Methemoglobin 0.3 L VBG pH 7.48 H VBG pCO2 53.3 H VBG pO2 52 H VBG HCO3 39.0 H VBG Total CO2 40.6 H VBG O2 Saturation 71.0 H VBG Base Excess 13.7 H VBG Lactic Acid Carboxyhemoglobin 3.7 H Total Hemoglobin 10.0 L POC Sodium Sodium 131 L POC Potassium Potassium POC Chloride Chloride 92 L Carbon Dioxide 31 H POC Total CO2 Anion Gap Creatinine 0.5 L POC Creatinine Calcium 7.8 L POC WB Ioniz Calcium Phosphorus 2.0 L Magnesium 1.4 L Total Bilirubin Direct Bilirubin GGT 70 H AST 51 H ALT Alkaline Phosphatase Lactate Dehydrogenase 258 H NT-Pro-B Natriuret Pep Total Protein 4.1 L Albumin 2.3 L Globulin 1.8 L 01/05/19 01/05/19 01/05/19 12:18 04:45 03:22 WBC RBC Hgb Hct POC Hct RDW Plt Count Seg Neutrophils % Lymphocytes % WBC Morphology Toxic Granulation RBC Morphology Hypochromasia Anisocytosis PT INR D-Dimer ABG Methemoglobin VBG pH VBG pCO2 VBG pO2 VBG HCO3 VBG Total CO2 VBG O2 Saturation VBG Base Excess VBG Lactic Acid 2.1 H Carboxyhemoglobin Total Hemoglobin POC Sodium Sodium 132 L POC Potassium Potassium 2.2 L* POC Chloride Chloride 89 L 85 L Carbon Dioxide 35 H 40 H POC Total CO2 Anion Gap Creatinine 0.5 L POC Creatinine Calcium 7.9 L 7.6 L POC WB Ioniz Calcium Phosphorus Magnesium Total Bilirubin 1.4 H Direct Bilirubin 0.4 H GGT 66 H AST 63 H ALT Alkaline Phosphatase Lactate Dehydrogenase 282 H NT-Pro-B Natriuret Pep Total Protein 3.9 L Albumin 2.0 L Globulin 1.9 L 01/05/19 01/04/19 01/04/19 03:22 22:37 20:08 WBC 3.5 L RBC 3.14 L Hgb 9.2 L Hct 27.7 L POC Hct RDW 22.1 H Plt Count 137 L Seg Neutrophils % Lymphocytes % WBC Morphology Abnorm A Toxic Granulation 1+ A RBC Morphology Abnorm A Hypochromasia Anisocytosis 2+ A PT INR D-Dimer ABG Methemoglobin VBG pH VBG pCO2 VBG pO2 VBG HCO3 VBG Total CO2 VBG O2 Saturation VBG Base Excess VBG Lactic Acid 2.3 H 5.9 H* Carboxyhemoglobin Total Hemoglobin POC Sodium Sodium POC Potassium Potassium POC Chloride Chloride Carbon Dioxide POC Total CO2 Anion Gap Creatinine POC Creatinine Calcium POC WB Ioniz Calcium Phosphorus Magnesium Total Bilirubin Direct Bilirubin GGT AST ALT Alkaline Phosphatase Lactate Dehydrogenase NT-Pro-B Natriuret Pep Total Protein Albumin Globulin 01/04/19 01/04/19 01/04/19 20:00 20:00 20:00 WBC RBC Hgb Hct POC Hct 33.0 L RDW 21.2 H Plt Count Seg Neutrophils % Lymphocytes % WBC Morphology Toxic Granulation RBC Morphology Hypochromasia Anisocytosis PT 15.4 H INR 1.2 H D-Dimer 0.50 H ABG Methemoglobin VBG pH VBG pCO2 VBG pO2 VBG HCO3 VBG Total CO2 VBG O2 Saturation VBG Base Excess VBG Lactic Acid Carboxyhemoglobin Total Hemoglobin POC Sodium 127 L Sodium POC Potassium < 2.0 L* Potassium 2.0 L* POC Chloride 66 L Chloride 72 L Carbon Dioxide 41 H* POC Total CO2 50 H* Anion Gap 20.0 H Creatinine POC Creatinine 0.5 L Calcium 8.2 L POC WB Ioniz Calcium 0.86 L Phosphorus Magnesium 1.0 L Total Bilirubin 1.7 H Direct Bilirubin GGT AST 102 H ALT 43 H Alkaline Phosphatase 160 H Lactate Dehydrogenase NT-Pro-B Natriuret Pep 700.8 H Total Protein 5.5 L Albumin 2.9 L Globulin Meds: Medications Acetaminophen (Tylenol) 650 mg PO Q4-6HP PRN; Protocol PRN Reason: Per Pain Protocol/Fever > 101 Hydrocodone Bitart/Acetaminophen ([place] 5/325mg) 0.5 tab PO Q6HP PRN PRN Reason: PAIN LEVEL > 6 Last Admin: 01/06/19 06:03 Dose: 0.5 tab Documented by: Cyanocobalamin (Vitamin B-12) 1,000 mcg PO BID [facility] Stop: 01/09/19 21:01 Last Admin: 01/05/19 20:38 Dose: 1,000 mcg Documented by: Docusate Sodium (Colace) 100 mg PO BID [facility] Last Admin: 01/05/19 20:39 Dose: Not Given Documented by: Folic Acid (Folic Acid) 1 mg PO DAILY [facility] Last Admin: 01/05/19 09:23 Dose: 1 mg Documented by: Magnesium Sulfate (Magnesium Sulfate) 2 gm in 50 mls @ 50 mls/hr IV UD PRN PRN Reason: MG = or < 1.7 Last Admin: 01/06/19 07:37 Dose: 50 mls/hr Documented by: Potassium Chloride 40 meq/ (Dextrose) 520 mls @ 130 mls/hr IV UD PRN PRN Reason: K+ = or < 3.5 Acetaminophen (Ofirmev) 900 mg in 90 mls @ 180 mls/hr IV Q6HP PRN; Protocol PRN Reason: PAIN/FEVER > 101 Last Infusion: 01/05/19 09:23 Dose: Infused Documented by: Iron Carb/Multivit/[place]/Folic Acid (Multivitamin W/Minerals) 1 tab PO DAILY [facility] Last Admin: 01/05/19 09:23 Dose: 1 tab Documented by: Magnesium Oxide (Magnesium Oxide) 400 mg PO BID [facility] Last Admin: 01/05/19 20:39 Dose: 400 mg Documented by: Mupirocin (Bactroban Oint 2%) 1 dose NARES BID [facility] Last Admin: 01/05/19 20:38 Dose: 1 dose Documented by: Ondansetron HCl (Zofran) 4 mg IV Q4-6HP PRN; Protocol PRN Reason: Nausea And Vomiting Last Admin: 01/05/19 07:27 Dose: 4 mg Documented by: Pantoprazole Sodium (Protonix) 40 mg PO QAMAC [facility] Last Admin: 01/06/19 07:41 Dose: 40 mg Documented by: Potassium Chloride (Klor-Con) 40 meq PO DAILYP PRN PRN Reason: K+ < 3.5 Senna/Docusate Sodium (Senna Plus Tablet) 1 tab PO HS [facility] Last Admin: 01/05/19 20:39 Dose: Not Given Documented by: Sodium Chloride (Saline Flush) 10 ml IV Q8 [facility] Last Admin: 01/06/19 05:53 Dose: Not Given Documented by: Thiamine HCl (Vitamin B1) 100 mg PO DAILY [facility] Last Admin: 01/05/19 09:22 Dose: 100 mg Documented by: Tramadol HCl (Ultram) 50 mg PO Q6HP PRN PRN Reason: Pain Last Admin: 01/06/19 07:41 Dose: 50 mg Documented by: - ABG Interpretation ABG results: 01/05/19 12:18 ABG Methemoglobin 0.3 L VBG pH 7.48 H VBG pCO2 53.3 H VBG pO2 52 H VBG HCO3 39.0 H VBG Total CO2 40.6 H VBG O2 Saturation 71.0 H VBG Base Excess 13.7 H Medical - PN: A/P - Time Spent With Patient Total time spent is greater than 50% in coordination of care (as documented) at patient's floor/unit and/or counseling patient: - Narrative A/P Narrative: A: *Hypovolemic shock: resolved, 2/2 volume loss from nausea/vomiting/poor oral intake. -Improved lactate *Critical Hypokalemia and risk of life-threatening arrhythmia: 2/2 emesis and alkalosis -improved *HypoMag/Calc/Adore/phos: improving *Severe metabolic alkalosis with pH 7.67: 22/ Emesis/Gastric acid loss. -Improving *Severe deconditioning/Generalized weakness: *Chronic diffuse pain and weakness: cont home prn opioids. Patient remains a high risk fall *Elevated LFTs likely secondary to ischemic hepatopathy versus alcoholism -Interval improvement noted with downtrending bilirubin and transaminases *ETOH/Tobacco Abuse: *Nausea/vomiting, h/o self-induced vomiting/bulimia as per prior medical records. -h/o laxative abuse *h/o paranoia/previous psychosis: has been off quetiapine for at least several months *GERD: continue PPI *Medication noncompliance: pt states she does not have a PCP currently and has not been taking her prescription medications for at least several months. -last med list from May includes linaclotide, reglan bid, zofran, naproxen, Prilosec, Seroquel, norco, KCl, Mag, Plan: -encourage oral intake -Nutrition consult, ensure tid -electrolyte replacement, -Aggressive PT/ OT for gait and safety eval in light of recurrent falls -multivitamin/thiamine/CIWA protocol -We will try to obtain Prior work-up including upper endoscopy. -Case management to coordinate SNF transfer on discharge -Smoking cessation counseling -ppx: heparin/home ppi Improving prognosis in light of improving hypovolemic shock/electrolyte derangement full code
[2019-01-06] MEDS: DOCUSATE SODIUM 100 MG CAPSULE PO SCH ×2 (08:53→20:42)
[2019-01-06] MEDS ORDERED: SODIUM CHLORIDE 1 GM TABLET PO SCH (09:00)
[2019-01-06] MEDS: MULTIVIT,THER IRON,CA,FA & MIN 1 TABLET PO SCH (09:05)
[2019-01-06] MEDS: THIAMINE 100 MG TABLET PO SCH (09:05)
[2019-01-06] MEDS: FOLIC ACID 1 MG TABLET PO SCH (09:05)
[2019-01-06] MEDS: MAGNESIUM OXIDE 400 MG TABLET PO SCH ×2 (09:05→20:41)
[2019-01-06] MEDS: CYANOCOBALAMIN (VITAMIN B-12) 500 MCG TABLET PO SCH ×2 (09:05→20:41)
[2019-01-06] MEDS: MUPIROCIN OINT 2% 22GM NARES SCH ×2 (09:06→20:41)
[2019-01-06] MEDS ORDERED: POTASSIUM CHLORIDE 40 MEQ in DEXTROSE 5% IN WATER 500 ML IV PRN (09:53)
[2019-01-06] MEDS ORDERED: POTASSIUM CHLORIDE 20 MEQ PACKET PO PRN (09:53)
[2019-01-06] MEDS ORDERED: ONDANSETRON 4 MG/2 ML VIAL IV PRN (09:53)
[2019-01-06] MEDS ORDERED: ACETAMINOPHEN 325 MG TABLET PO PRN (09:53)
[2019-01-06] MEDS ORDERED: MAGNESIUM SULFATE 2 GM/50 ML BAG IV PRN (09:53)
[2019-01-06] MEDS ORDERED: FLU VACC QS2019-20(6MOS UP)/PF 60 MCG/0.5 ML SYRINGE IM ONE ×2 (10:00→11:31)
[2019-01-06] MEDS: ACETAMINOPHEN 900 MG/90 ML BOTTLE IV PRN (11:34)
[2019-01-06 11:50] LABS: Prealbumin 8.3 mg/dl (20-40)
[2019-01-06] MEDS ORDERED: NEUTRA PHOS 1 PACKET PO ONE ×2 (14:00)
[2019-01-06] MEDS: SODIUM CHLORIDE 1 GM TABLET PO SCH ×2 (14:42→20:40)
[2019-01-06] MEDS: TRIAMCINOLONE ACETONIDE TOPICAL SCH (20:41)
[2019-01-06] MEDS: USP TOPICAL SCH (20:41)
[2019-01-06] MEDS: SENNOSIDES/DOCUSATE SODIUM 1 TAB TABLET PO SCH (21:03)
[2019-01-07 05:52] LABS: Basophils # (Auto) 0 K/mcL (0.0-0.3); Basophils % (Auto) 0.8 % (0.0-2.0); Eosinophils # (Auto) 0.1 K/mcL (0.0-0.7); Granulocytes % (Auto) 41.6 % (38.0-78.0); Hematocrit 27.4 % (36.0-48.0); Lymphocytes # (Auto) 1.5 K/mcL (1.5-4.8); Lymphocytes % (Auto) 51.1 % (15.5-49.0); Mean Cell Volume 89.3 fL (80.0-100.0); Mean Corpuscular HGB Conc 32.9 g/dL (31.0-36.0); Mean Platelet Volume 7.5 fL (7.4-10.4); Monocytes # (Auto) 0.1 K/mcL (0.1-0.9); Monocytes % (Auto) 3.5 % (1.0-12.0); Platelet Count 104 K/mcL (140-440); RBC 3.07 M/mcL (4.00-5.20); Red Cell Distribution Width 22.6 % (11.5-14.5)
[2019-01-07 06:24] LABS: ALT/SGPT 22 U/l (0-40); AST/SGOT 33 U/l (0-37); Albumin 2.3 gm/dL (3.2-5.2); Albumin/Globulin Ratio 1.3 (1.0-2.3); Alkaline Phosphatase 101 U/L (39-117); Bilirubin,Direct 0.2 mg/dL (0.0-0.3); Bilirubin,Total 0.6 mg/dL (0.0-1.0); Blood Urea Nitrogen 4 mg/dl (6-20); Calcium 7.7 mg/dl (8.6-10.4); Carbon Dioxide 31 mmol/L (22-30); Chloride 93 mmol/L (96-108); Globulin 1.8 gm/dL (2.2-3.7); Glomerular Filtration Rate 111; Glucose 76 mg/dL (70-105); Lactate Dehydrogenase 266 U/L (94-250); Phosphorous 2.8 mg/dL (2.7-4.5); Triglycerides 80 mg/dl (<150)
[2019-01-07] MEDS: HYDROcodone/APAP 5/325MG TABLET PO PRN ×3 (07:03→20:20)
[2019-01-07] MEDS: PANTOPRAZOLE 40 MG TABLET PO SCH (07:04)
[2019-01-07] MEDS: 0.9 % SODIUM CHLORIDE 10 ML SYRINGE IV SCH ×6 (07:44→22:59)
--- NOTE | 2019-01-07 08:20 | Internal Med Progress Note ---
Medical - PN: Subj Patient information: Note initiated : 01/07/19 at 8:16 am Service Date, if different from initiated Date: [] Patient: Oksana Salcedo a 53 y/o F admitted on 01/05/19 for body cramps, n/v, dizzy, syncope. Chief Complaint: [] Interval history: Ms. Salcedo is a 53 year old F with h/o mental health disorder, paranoia, alcohol abuse, who presents to the ER for evaluation of weakness , nausea and vomiting. She also carries a history of bulimia with induced vomiting( per her Spike during previous hospitalization). Patient over the last few days has been progressively getting weaker, confused and has sustained multiple ground-level falls. Her symptoms were associated with severe vomiting and inability to take anything by mouth. She was discovered on the floor today and subsequently was b rought into the ER. The patient is a very poor historian and frequently changes her story just like previous with a history of the hospital. She complains of dizziness. She has an extensive work-up during her past hospitalization with similar symptoms. She denied associated fever chills or diarrhea or bloody stool. Demonstrate an extremely labile affect She also carries a significant history of alcohol abuse, unclear if she has been drinking recently She has been previously evaluated by psych services as per medical records Most of the history was obtained from review of medical records Initial work-up in the ER was consistent with severe electrolyte derangement with critical potassium at 2, elevated lactic acid around 6, severe metabolic alkalosis with a pH 7.67, Bicarbonate 50, anion gap 20, magnesium 1, elevated LFTs and a sodium 127. Patient was rapidly started on crystalloid resuscitation along with electrolytes replacement. She is severely volume depleted. ABG shows 7.67/46/48. EKG changes consistent hypokalemia. Subsequently hospitalist service was consulted for admission in light of patient being critically ill as of above At the time of evaluation patient is fatigued lethargic unable to provide a detailed history. She did however respond to verbal commands. She is reluctant to when asked about alcohol use. Intermittently agitated. History again was reviewed from prior medical records and ER physician. Patient will be admitted to PCU in light of severe hypokalemia and low risk of life-threatening arrhythmia in the setting of volume severe electrode derangement/volume depletion/elevated LFTs and high risk of alcohol withdrawal 10/25-patient improving. Overnight mildly hypotensive. On 2 L oxygen. Much more alert. Well rested. Potassium improved to 2.2. On continuous IV infusion at 10 mg in addition to 80 mg oral potassium to be administered in the next 2 hours. Anion gap resolved. IV fluids infusing. Start diet as tolerated. Magnesium at 2. Bilirubin downtrending. LFTs improved. Lactic acid down from 5.9-2.1. Hemoglobin 9.2. 01/06 Better blood pressures overnight. No new complaints. States she has some nausea but no vomiting. A 25% of her dinner last night refused the supplemental drink. Able to get more accurate urine outputs at this time. Previously was mixed with stool. Patient denies diarrhea at this time. 01/07 No overnight events and patient doing well. Does have occasional headache and nausea no vomiting. Feels her appetite is improving. Review of Systems: denies fever/chills/vomiting/chest or abdominal pain/cough/dyspnea/diarrhea. Otherwise see above. - Constitutional Vitals: Vital Signs Temp Pulse Resp BP Pulse Ox 97.0 F 82 14 105/72 95 01/07/19 04:26 01/07/19 00:23 01/07/19 07:22 01/07/19 04:26 01/07/19 07:22 Period Temp Pulse Resp BP Sys/Gonzalez Pulse Ox Last 24 Hr 97.0 F-98.2 F 82-92 14-20 97-129/60-90 88-100 Intake and Output 01/06/19 01/07/19 01/07/19 21:59 05:59 13:59 Intake Total 960 240 Output Total 900 475 150 Balance 60 -475 90 Weight 67.903 kg Intake & Output: Intake & Output 01/06/19 01/07/19 01/07/19 21:59 05:59 13:59 Intake Total 960 240 Output Total 900 475 150 Balance 60 -475 90 Weight 67.903 kg Intake: Nourishment/Supplement quantity 240 (ml) Oral 720 240 Output: Void Amount 900 475 150 Other: Meal Dinner Percent of Meal Consumed 25% Feeding Ability Independent Nourishment/Supplement name Breeze Urine Appearance Sediment Sediment Clear Urine Color Dark Yellow Bright Yellow Dark Yellow Urine Odor Normal Normal Exam: General: Alert, Awake, No acute Distress Eyes/N/T: EOMI, Head/Neck: neck supple, CV: RRR, No murmurs, Pulm: Clear b/l, no wheezing/rhonchi/rales Abd: soft, nontender, +BS x4 Ext: no clubbing/cyanosis, trace b/l LE edema Neuro: Alert, no focal deficits, moves all extremities, Skin: warm/dry Medical - PN: Obj Da - Labs CBC & Chem 7: 01/07/19 04:19 01/07/19 04:19 Labs: Abnormal Lab Results 01/07/19 01/07/19 01/06/19 04:19 04:19 10:55 WBC 3.0 L RBC 3.07 L Hgb 9.0 L Hct 27.4 L POC Hct RDW 22.6 H Plt Count 104 L Lymph % (Auto) 51.1 H Gran # 1.2 L Seg Neutrophils % Lymphocytes % WBC Morphology Toxic Granulation RBC Morphology Hypochromasia Anisocytosis PT INR D-Dimer ABG Methemoglobin VBG pH VBG pCO2 VBG pO2 VBG HCO3 VBG Total CO2 VBG O2 Saturation VBG Base Excess VBG Lactic Acid Carboxyhemoglobin Total Hemoglobin POC Sodium Sodium 131 L POC Potassium Potassium POC Chloride Chloride 93 L Carbon Dioxide 31 H POC Total CO2 Anion Gap 7.0 L BUN 4 L Creatinine 0.5 L POC Creatinine Calcium 7.7 L POC WB Ioniz Calcium Phosphorus Magnesium 1.3 L Total Bilirubin Direct Bilirubin GGT 62 H AST ALT Alkaline Phosphatase Lactate Dehydrogenase 266 H NT-Pro-B Natriuret Pep Total Protein 4.1 L Albumin 2.3 L Globulin 1.8 L Prealbumin 8.3 L 01/06/19 01/06/19 01/05/19 04:23 04:23 12:18 WBC 3.7 L RBC 3.05 L Hgb 9.0 L Hct 27.1 L POC Hct RDW 21.8 H Plt Count 118 L Lymph % (Auto) Gran # Seg Neutrophils % 33 L Lymphocytes % 63 H WBC Morphology Toxic Granulation RBC Morphology Abnorm A Hypochromasia 1+ A Anisocytosis 2+ A PT INR D-Dimer ABG Methemoglobin 0.3 L VBG pH 7.48 H VBG pCO2 53.3 H VBG pO2 52 H VBG HCO3 39.0 H VBG Total CO2 40.6 H VBG O2 Saturation 71.0 H VBG Base Excess 13.7 H VBG Lactic Acid Carboxyhemoglobin 3.7 H Total Hemoglobin 10.0 L POC Sodium Sodium 131 L POC Potassium Potassium POC Chloride Chloride 92 L Carbon Dioxide 31 H POC Total CO2 Anion Gap BUN Creatinine 0.5 L POC Creatinine Calcium 7.8 L POC WB Ioniz Calcium Phosphorus 2.0 L Magnesium 1.4 L Total Bilirubin Direct Bilirubin GGT 70 H AST 51 H ALT Alkaline Phosphatase Lactate Dehydrogenase 258 H NT-Pro-B Natriuret Pep Total Protein 4.1 L Albumin 2.3 L Globulin 1.8 L Prealbumin 01/05/19 01/05/19 01/05/19 12:18 04:45 03:22 WBC RBC Hgb Hct POC Hct RDW Plt Count Lymph % (Auto) Gran # Seg Neutrophils % Lymphocytes % WBC Morphology Toxic Granulation RBC Morphology Hypochromasia Anisocytosis PT INR D-Dimer ABG Methemoglobin VBG pH VBG pCO2 VBG pO2 VBG HCO3 VBG Total CO2 VBG O2 Saturation VBG Base Excess VBG Lactic Acid 2.1 H Carboxyhemoglobin Total Hemoglobin POC Sodium Sodium 132 L POC Potassium Potassium 2.2 L* POC Chloride Chloride 89 L 85 L Carbon Dioxide 35 H 40 H POC Total CO2 Anion Gap BUN Creatinine 0.5 L POC Creatinine Calcium 7.9 L 7.6 L POC WB Ioniz Calcium Phosphorus Magnesium Total Bilirubin 1.4 H Direct Bilirubin 0.4 H GGT 66 H AST 63 H ALT Alkaline Phosphatase Lactate Dehydrogenase 282 H NT-Pro-B Natriuret Pep Total Protein 3.9 L Albumin 2.0 L Globulin 1.9 L Prealbumin 01/05/19 01/04/19 01/04/19 03:22 22:37 20:08 WBC 3.5 L RBC 3.14 L Hgb 9.2 L Hct 27.7 L POC Hct RDW 22.1 H Plt Count 137 L Lymph % (Auto) Gran # Seg Neutrophils % Lymphocytes % WBC Morphology Abnorm A Toxic Granulation 1+ A RBC Morphology Abnorm A Hypochromasia Anisocytosis 2+ A PT INR D-Dimer ABG Methemoglobin VBG pH VBG pCO2 VBG pO2 VBG HCO3 VBG Total CO2 VBG O2 Saturation VBG Base Excess VBG Lactic Acid 2.3 H 5.9 H* Carboxyhemoglobin Total Hemoglobin POC Sodium Sodium POC Potassium Potassium POC Chloride Chloride Carbon Dioxide POC Total CO2 Anion Gap BUN Creatinine POC Creatinine Calcium POC WB Ioniz Calcium Phosphorus Magnesium Total Bilirubin Direct Bilirubin GGT AST ALT Alkaline Phosphatase Lactate Dehydrogenase NT-Pro-B Natriuret Pep Total Protein Albumin Globulin Prealbumin 01/04/19 01/04/19 01/04/19 20:00 20:00 20:00 WBC RBC Hgb Hct POC Hct 33.0 L RDW 21.2 H Plt Count Lymph % (Auto) Gran # Seg Neutrophils % Lymphocytes % WBC Morphology Toxic Granulation RBC Morphology Hypochromasia Anisocytosis PT 15.4 H INR 1.2 H D-Dimer 0.50 H ABG Methemoglobin VBG pH VBG pCO2 VBG pO2 VBG HCO3 VBG Total CO2 VBG O2 Saturation VBG Base Excess VBG Lactic Acid Carboxyhemoglobin Total Hemoglobin POC Sodium 127 L Sodium POC Potassium < 2.0 L* Potassium 2.0 L* POC Chloride 66 L Chloride 72 L Carbon Dioxide 41 H* POC Total CO2 50 H* Anion Gap 20.0 H BUN Creatinine POC Creatinine 0.5 L Calcium 8.2 L POC WB Ioniz Calcium 0.86 L Phosphorus Magnesium 1.0 L Total Bilirubin 1.7 H Direct Bilirubin GGT AST 102 H ALT 43 H Alkaline Phosphatase 160 H Lactate Dehydrogenase NT-Pro-B Natriuret Pep 700.8 H Total Protein 5.5 L Albumin 2.9 L Globulin Prealbumin Meds: Medications Acetaminophen (Tylenol) 650 mg PO Q4-6HP PRN; Protocol PRN Reason: Per Pain Protocol/Fever > 101 Hydrocodone Bitart/Acetaminophen (Osmond 5/325mg) 1 tab PO Q6HP PRN PRN Reason: PAIN LEVEL > 6 Last Admin: 01/07/19 07:03 Dose: 1 tab Documented by: Cyanocobalamin (Vitamin B-12) 1,000 mcg PO BID [facility] Stop: 01/09/19 21:01 Last Admin: 01/06/19 20:41 Dose: 1,000 mcg Documented by: Docusate Sodium (Colace) 100 mg PO BID [facility] Last Admin: 01/06/19 20:42 Dose: Not Given Documented by: Folic Acid (Folic Acid) 1 mg PO DAILY [facility] Potassium Chloride 40 meq/ (Dextrose) 520 mls @ 130 mls/hr IV UD PRN PRN Reason: K+ = or < 3.5 Magnesium Sulfate (Magnesium Sulfate) 2 gm in 50 mls @ 50 mls/hr IV UD PRN PRN Reason: MG = or < 1.7 Last Admin: 01/07/19 07:43 Dose: 50 mls/hr Documented by: Acetaminophen (Ofirmev) 900 mg in 90 mls @ 180 mls/hr IV Q6HP PRN; Protocol PRN Reason: PAIN/FEVER > 101 Last Infusion: 01/06/19 12:15 Dose: Infused Documented by: Iron Carb/Multivit/Lift Electrician/Folic Acid (Multivitamin W/Minerals) 1 tab PO DAILY [facility] Magnesium Oxide (Magnesium Oxide) 400 mg PO BID [facility] Last Admin: 01/06/19 20:41 Dose: 400 mg Documented by: Mupirocin (Bactroban Oint 2%) 1 dose NARES BID [facility] Last Admin: 01/06/19 20:41 Dose: 1 dose Documented by: Ondansetron HCl (Zofran) 4 mg IV Q4-6HP PRN; Protocol PRN Reason: Nausea And Vomiting Pantoprazole Sodium (Protonix) 40 mg PO QAMAC [facility] Last Admin: 01/07/19 07:04 Dose: 40 mg Documented by: Triamcinolone Acetonide Cream Care Home, 0.1% 1 dose TOPICAL BID [facility] Last Admin: 01/06/19 20:41 Dose: 1 dose Documented by: Potassium Chloride (Klor-Con) 40 meq PO DAILYP PRN PRN Reason: K+ < 3.5 Senna/Docusate Sodium (Senna Plus Tablet) 1 tab PO HS [facility] Last Admin: 01/06/19 21:03 Dose: Not Given Documented by: Sodium Chloride (Saline Flush) 10 ml IV Q8 [facility] Last Admin: 01/07/19 07:44 Dose: 10 ml Documented by: Thiamine HCl (Vitamin B1) 100 mg PO DAILY [facility] Tramadol HCl (Ultram) 50 mg PO Q6HP PRN PRN Reason: Pain Last Admin: 01/06/19 14:39 Dose: 50 mg Documented by: - ABG Interpretation ABG results: 01/05/19 12:18 ABG Methemoglobin 0.3 L VBG pH 7.48 H VBG pCO2 53.3 H VBG pO2 52 H VBG HCO3 39.0 H VBG Total CO2 40.6 H VBG O2 Saturation 71.0 H VBG Base Excess 13.7 H Medical - PN: A/P - Time Spent With Patient Total time spent is greater than 50% in coordination of care (as documented) at patient's floor/unit and/or counseling patient: - Narrative A/P Narrative: A: *Hypovolemic shock: resolved, 2/2 volume loss from nausea/vomiting/poor oral intake. -Improved lactate *Critical Hypokalemia and risk of life-threatening arrhythmia: 2/2 emesis and alkalosis -improved *HypoMag/Calc/Adore/phos: improving *Severe metabolic alkalosis with pH 7.67: 22/ Emesis/Gastric acid loss. -Improving *Severe deconditioning/Generalized weakness: *Chronic diffuse pain and weakness: cont home prn opioids. Patient remains a high risk fall *Elevated LFTs likely secondary to ischemic hepatopathy versus alcoholism -Interval improvement noted with downtrending bilirubin and transaminases *ETOH/Tobacco Abuse: *Nausea/vomiting, h/o self-induced vomiting/bulimia as per prior medical records. -h/o laxative abuse *h/o paranoia/previous psychosis: has been off quetiapine for at least several months *GERD: continue PPI *Medication noncompliance: pt states she does not have a PCP currently and has not been taking her prescription medications for at least several months. -last med list from May includes linaclotide, reglan bid, zofran, naproxen, Prilosec, Seroquel, norco, KCl, Mag, *protein-calorie malnutrition: Plan: -encourage oral intake -Nutrition consult, ensure tid -electrolyte replacement, -Aggressive PT/ OT for gait and safety eval in light of recurrent falls -multivitamin/thiamine/CIWA protocol -IS -We will try to obtain Prior work-up including upper endoscopy. -Case management to coordinate SNF transfer on discharge -Smoking cessation counseling Improving prognosis in light of improving hypovolemic shock/electrolyte derangement full code
[2019-01-07] MEDS: FOLIC ACID 1 MG TABLET PO SCH (08:59)
[2019-01-07] MEDS: MAGNESIUM OXIDE 400 MG TABLET PO SCH ×2 (08:59→20:17)
[2019-01-07] MEDS: CYANOCOBALAMIN (VITAMIN B-12) 500 MCG TABLET PO SCH ×2 (08:59→20:17)
[2019-01-07] MEDS: MULTIVIT,THER IRON,CA,FA & MIN 1 TABLET PO SCH (09:00)
[2019-01-07] MEDS: THIAMINE 100 MG TABLET PO SCH (09:00)
[2019-01-07] MEDS: TRIAMCINOLONE ACETONIDE TOPICAL SCH ×2 (09:00→20:18)
[2019-01-07] MEDS: DOCUSATE SODIUM 100 MG CAPSULE PO SCH ×2 (09:00→20:17)
[2019-01-07] MEDS: USP TOPICAL SCH ×2 (09:00→20:18)
[2019-01-07] MEDS: MUPIROCIN OINT 2% 22GM NARES SCH ×2 (09:01→20:17)
[2019-01-07] MEDS ORDERED: MAGNESIUM SULFATE 8.12 MEQ in DEXTROSE 5% IN WATER 50 ML IV ONE (09:35)
[2019-01-07] MEDS ORDERED: ALBUMIN HUMAN 12.5 GM/50 ML BAG IV ONE (09:43)
[2019-01-07] MEDS ORDERED: FUROSEMIDE 20 MG/2 ML VIAL IV ONE (09:43)
--- NOTE | 2019-01-07 10:13 | Discharge Summary ---
Medical - DS: Prov Patient information: Note initiated : 01/07/19 at 10:11 am Service Date, if different from initiated Date: [] Patient: Oksana Salcedo 53 y/o F admitted on 01/05/19 for body cramps, n/v, dizzy, syncope. Chief Complaint: [] Date of admission: 01/05/19 00:05 Discharge date: 01/08/19 Primary care physician: Elsie Hdz Consults: 01/05/19 07:31 Consult to Physician [CONS] Routine Comment: Consulting Provider: Alvin Mittal Reason For Exam: Physician to Consult Medical - DS: Meds - Discharge Medications Active and Home Medications: Home Medications linaclotide 145 mcg capsule 145 mcg PO DAILY cap 10/27/17 [History Confirmed 01/05/19 Last Taken Unknown] metoclopramide HCl 10 mg tablet 10 mg PO DAILY tab 10/27/17 [History Confirmed 01/05/19 Last Taken Unknown] naproxen sodium 1 tablet PO Q8H PRN 10/27/17 [History Confirmed 01/05/19 Last Taken Unknown] omeprazole 40 mg capsule,delayed release 40 mg PO DAILY cap 10/27/17 [History Confirmed 01/05/19 Last Taken Unknown] ondansetron 8 mg disintegrating tablet 8 mg PO .q8 PRN tab 10/27/17 [History Confirmed 01/05/19 Last Taken Unknown] triamcinolone acetonide 0.1 % topical cream 1 applic TOPICAL BID 10/27/17 [History Confirmed 01/06/19 Last Taken 01/04/19 21:00] Magnesium Oxide [Magnesium] 400 mg PO BID #60 tab 05/19/18 [Rx Confirmed 01/05/19 Last Taken Unknown] Potassium Chloride [K-Tab ER] 10 meq PO BID #90 tab 05/19/18 [Rx Confirmed 01/05/19 Last Taken Unknown] Medical - DS: Hosp Hospital Course: Ms. Salcedo is a 53 year old F with h/o mental health disorder, paranoia, alcohol abuse, who presents to the ER for evaluation of weakness , nausea and vomiting. She also carries a history of bulimia with induced vomiting( per her Spike during previous hospitalization). Patient over the last few days has been progressively getting weaker, confused and has sustained multiple ground-level falls. Her symptoms were associated with severe vomiting and inability to take anything by mouth. She was discovered on the floor today and subsequently was brought into the ER. The patient is a very poor historian and frequently changes her story just like previous with a history of the hospital. She complains of dizziness. She has an extensive work-up during her past hospitalization with similar symptoms. She denied associated fever chills or diarrhea or bloody stool. Demonstrate an extremely labile affect She also carries a significant history of alcohol abuse, unclear if she has been drinking recently She has been previously evaluated by psych services as per medical records Most of the history was obtained from review of medical records Initial work-up in the ER was consistent with severe electrolyte derangement with critical potassium at 2, elevated lactic acid around 6, severe metabolic alkalosis with a pH 7.67, Bicarbonate 50, anion gap 20, magnesium 1, elevated LFTs and a sodium 127. Patient was rapidly started on crystalloid resuscitation along with electrolytes replacement. She is severely volume depleted. ABG shows 7.67/46/48. EKG changes consistent hypokalemia. Subsequently hospitalist service was consulted for admission in light of patient being critically ill as of above At the time of evaluation patient is fatigued lethargic unable to provide a detailed history. She did however respond to verbal commands. She is reluctant to when asked about alcohol use. Intermittently agitated. History again was reviewed from prior medical records and ER physician. Patient will be admitted to PCU in light of severe hypokalemia and low risk of life-threatening arrhythmia in the setting of volume severe electrode derangement/volume depletion/elevated LFTs and high risk of alcohol withdrawal 01/05-patient improving. Overnight mildly hypotensive. On 2 L oxygen. Much more alert. Well rested. Potassium improved to 2.2. On continuous IV infusion at 10 mg in addition to 80 mg oral potassium to be administered in the next 2 hours. Anion gap resolved. IV fluids infusing. Start diet as tolerated. Magnesium at 2. Bilirubin downtrending. LFTs improved. Lactic acid down from 5.9-2.1. Hemoglobin 9.2. 01/06 Better blood pressures overnight. No new complaints. States she has some nausea but no vomiting. A 25% of her dinner last night refused the supplemental drink. Able to get more accurate urine outputs at this time. Previously was mixed with stool. Patient denies diarrhea at this time. 01/07 No overnight events and patient doing well. Does have occasional headache and nausea no vomiting. Feels her appetite is improving. 01/08 Continues to feel better. Electrolytes normalized. Patient doing well. Patient will need referral to dietitian for further counseling. Stable for discharge. Discharge diagnosis: Hypovolemic shock hypokalemia and other severe low electrolytes Secondary discharge diagnosis: Severe metabolic alkalosis severe deconditioning weakness chronic diffuse pain elevated LFTs likely ischemic hepatopathy versus alcoholism improved alcohol abuse tobacco abuse nausea vomiting concern for self-induced vomiting/bulimia history of paranoia previous psychosis GERD medication noncompliance protein calorie malnutrition - Time Spent with Patient Total time spent providing and/or coordinating discharge services: Greater than 30 minutes Medical - DS: Exam - Constitutional Vitals: Vital Signs Temp Pulse Resp BP Pulse Ox 01/07/19 08:51 122 H 100 01/07/19 08:03 97.8 F 80 15 108/80 97 01/07/19 07:22 14 95 01/07/19 04:27 105/78 01/07/19 04:26 97.0 F 15 105/72 98 01/07/19 02:35 94 01/07/19 00:23 97.0 F 82 15 97/70 95 01/06/19 18:57 97.7 F 16 108/79 95 01/06/19 16:01 97.9 F 14 104/60 98 01/06/19 13:30 129/78 01/06/19 12:59 97/69 01/06/19 12:01 106/66 01/06/19 11:38 98.2 F 83 20 106/66 95 01/06/19 11:35 106/66 Intake and Output 01/06/19 01/07/19 01/07/19 21:59 05:59 13:59 Intake Total 960 240 Output Total 900 475 150 Balance 60 -475 90 Intake: Nourishment/Supplement quantity 240 (ml) Oral 720 240 Output: Void Amount 900 475 150 Other: Meal Dinner Percent of Meal Consumed 25% Feeding Ability Independent Nourishment/Supplement name Breeze Urine Appearance Sediment Sediment Clear Urine Color Dark Yellow Bright Yellow Dark Yellow Urine Odor Normal Normal Weight 67.903 kg Medical - DS: Data Labs on day of discharge: Labs from last 24 hours 01/07/19 01/07/19 01/06/19 04:19 04:19 10:55 WBC 3.0 L RBC 3.07 L Hgb 9.0 L Hct 27.4 L MCV 89.3 MCH 29.4 MCHC 32.9 RDW 22.6 H Plt Count 104 L MPV 7.5 Gran % 41.6 Lymph % (Auto) 51.1 H Glascock % (Auto) 3.5 Eos % (Auto) 3.0 Baso % (Auto) 0.8 Gran # 1.2 L Lymph # (Auto) 1.5 Glascock # (Auto) 0.1 Eos # (Auto) 0.1 Baso # (Auto) 0 Sodium 131 L Potassium 3.9 Chloride 93 L Carbon Dioxide 31 H Anion Gap 7.0 L BUN 4 L Creatinine 0.5 L GFR Calculation 111 Glucose 76 Uric Acid 3.0 Calcium 7.7 L Phosphorus 2.8 Magnesium 1.3 L Total Bilirubin 0.6 Direct Bilirubin 0.2 GGT 62 H AST 33 ALT 22 Alkaline Phosphatase 101 Lactate Dehydrogenase 266 H Total Protein 4.1 L Albumin 2.3 L Globulin 1.8 L Albumin/Globulin Ratio 1.3 Prealbumin 8.3 L Triglycerides 80 Preliminary micro results at discharge 01/04/19 20:15 Blood Culture - Preliminary Blood 01/04/19 20:19 Blood Culture - Preliminary Blood Medical - DS: A/P - Patient/Caregiver Discharge Instructions Activity: increase activity as tolerated Diet: Regular Diet Additional Instructions: Alcohol and smoking cessation highly recommended Referral to see dietitian and further counseling - Follow up Plan Follow up with: Yvrose Hammond [Referring] - 01/15/19 4:00 pm Disposition: Home, Self-Care Care Plan Goals: This discharge packet is provided to you to help keep you informed about your care. We want to ensure you get everything you need when you go home. You will also be receiving a call from us in a few days to follow up with you and see how you are doing since your discharge. This gives us a chance to listen to any concerns you maybe experiencing since you were discharged or any additional needs you may have, as well as providing us feedback on your care experience. We strive to always provide excellent care and thank you for your feedback and for choosing [facility]. Prognosis: Undetermined Rehab Potential: Fair Overall status at discharge: patient is progressing back to baseline
[2019-01-07] MEDS: FONDAPARINUX SODIUM 2.5 MG/0.5 ML SYRINGE SQ SCH (10:49)
[2019-01-07] MEDS: traMADol 50 MG TABLET PO PRN (10:50)
[2019-01-07] MEDS: ACETAMINOPHEN 900 MG/90 ML BOTTLE IV PRN (14:00)
[2019-01-07 16:32] LABS: ALT/SGPT 22 U/l (0-40); AST/SGOT 34 U/l (0-37); Albumin 2.7 gm/dL (3.2-5.2); Albumin/Globulin Ratio 1.5 (1.0-2.3); Alkaline Phosphatase 105 U/L (39-117); Bilirubin,Direct 0.2 mg/dL (0.0-0.3); Bilirubin,Total 0.5 mg/dL (0.0-1.0); Blood Urea Nitrogen 4 mg/dl (6-20); Calcium 7.8 mg/dl (8.6-10.4); Carbon Dioxide 32 mmol/L (22-30); Chloride 89 mmol/L (96-108); Globulin 1.8 gm/dL (2.2-3.7); Glomerular Filtration Rate 104; Glucose 101 mg/dL (70-105); Lactate Dehydrogenase 264 U/L (94-250); Phosphorous 2.6 mg/dL (2.7-4.5); Triglycerides 88 mg/dl (<150); Uric Acid 3.1 mg/dL (2.5-8.0)
[2019-01-07] MEDS ORDERED: SODIUM CHLORIDE 1 GM TABLET PO ONE (16:40)
[2019-01-07] MEDS: SENNOSIDES/DOCUSATE SODIUM 1 TAB TABLET PO SCH (20:16)
[2019-01-07] MEDS: SODIUM CHLORIDE 1 GM TABLET PO SCH (20:18)
[2019-01-08] MEDS: HYDROcodone/APAP 5/325MG TABLET PO PRN ×2 (02:23→09:03)
[2019-01-08] MEDS: 0.9 % SODIUM CHLORIDE 10 ML SYRINGE IV SCH (05:26)
[2019-01-08] MEDS: PANTOPRAZOLE 40 MG TABLET PO SCH (07:14)
[2019-01-08 07:19] LABS: ALT/SGPT 19 U/l (0-40); AST/SGOT 29 U/l (0-37); Albumin 2.3 gm/dL (3.2-5.2); Albumin/Globulin Ratio 1.2 (1.0-2.3); Alkaline Phosphatase 102 U/L (39-117); Bilirubin,Direct < 0.2 mg/dL (0.0-0.3); Bilirubin,Total 0.5 mg/dL (0.0-1.0); Blood Urea Nitrogen 3 mg/dl (6-20); Carbon Dioxide 31 mmol/L (22-30); Chloride 94 mmol/L (96-108); Glomerular Filtration Rate 119; Glucose 76 mg/dL (70-105); Lactate Dehydrogenase 247 U/L (94-250); Phosphorous 3.3 mg/dL (2.7-4.5); Triglycerides 109 mg/dl (<150); Uric Acid 3.3 mg/dL (2.5-8.0)
[2019-01-08] MEDS ORDERED: MAGNESIUM SULFATE 8.12 MEQ in DEXTROSE 5% IN WATER 50 ML IV ONE (08:19)
[2019-01-08] MEDS: DOCUSATE SODIUM 100 MG CAPSULE PO SCH (09:00)
[2019-01-08] MEDS: MULTIVIT,THER IRON,CA,FA & MIN 1 TABLET PO SCH (09:00)
[2019-01-08] MEDS: MAGNESIUM OXIDE 400 MG TABLET PO SCH (09:00)
[2019-01-08] MEDS: FONDAPARINUX SODIUM 2.5 MG/0.5 ML SYRINGE SQ SCH (09:01)
[2019-01-08] MEDS: THIAMINE 100 MG TABLET PO SCH (09:01)
[2019-01-08] MEDS: USP TOPICAL SCH (09:01)
[2019-01-08] MEDS: SODIUM CHLORIDE 1 GM TABLET PO SCH (09:01)
[2019-01-08] MEDS: TRIAMCINOLONE ACETONIDE TOPICAL SCH (09:01)
[2019-01-08] MEDS: CYANOCOBALAMIN (VITAMIN B-12) 500 MCG TABLET PO SCH (09:02)
[2019-01-08] MEDS: FOLIC ACID 1 MG TABLET PO SCH (09:02)
[2019-01-08] MEDS: MUPIROCIN OINT 2% 22GM NARES SCH (09:04)
== END 2019-01-08 11:52 | disposition home or self-care (01) | DRG 640 ==
LOC: ED 19:40 → ICU 01-05 00:05
PROVIDERS: ADMIT Internal Medicine; ATTEND Internal Medicine